=== PATIENT | female | born 1955 | race Caucasian/White ===

== ENCOUNTER → 2018-01-07 07:30 | Outpatient (CLI) | payer OTHER, BC, SELFPAY ==
[2018-01-07 07:59] LABS: Basophils # 0.1 K/mm3 (0-0.2); Basophils % 0.9 % (0.1-2.0); Eosinophils # 0.2 K/mm3 (0.0-0.4); Hematocrit 36.9 % (37.0-47.0); Hemoglobin 12.1 g/dL (12.2-16.2); Lymphocytes # 2.5 K/mm3 (0.7-4.5); Mean Corpuscular HGB Conc 32.8 g/dL (31.8-35.4); Mean Corpuscular Hemoglobin 28.7 pg (27.0-31.2); Mean Corpuscular Volume 87.6 fl (81-99); Mean Platelet Volume 8.2 fl (7.4-10.4); Monocytes # 0.4 K/mm3 (0.1-1.0); Monocytes % 6.7 % (1.7-9.3); Neutrophils # 2.5 K/mm3 (1.8-7.8); Neutrophils % 45.4 % (37.0-80.0); Platelet Count 299 K/mm3 (142-424); Red Blood Count 4.21 M/mm3 (4.20-5.40); Red Cell Distribution Width 13.4 % (11.5-17.5); White Blood Count 5.6 K/mm3 (4.8-10.8)
[2018-01-07 08:44] LABS: Alanine Aminotransferase 26 U/L (12-78); Albumin Level 3.3 gm/dL (3.4-5.0); Alkaline Phosphatase 120 U/L (46-116); Anion Gap 13.9 mEq/L (5-15); Aspartate Amino Transferase 19 U/L (15-37); Bilirubin,Total 0.4 mg/dL (0.2-1.0); Blood Urea Nitrogen 13 mg/dL (7-18); Calcium 8.2 mg/dL (8.5-10.1); Carbon Dioxide 28 mmol/L (21.0-32.0); Chloride 107 mmol/L (98-107); Creatinine,Serum 1.04 mg/dL (0.55-1.02); Estimated Glomerular Filt Rate 54 ml/min (>60); GFR (African American) 65 ML/MIN (>60); Globulin 3.2 gm/dl (1.3-3.2); Glucose 100 mg/dL (74-106); Potassium 3.9 mmoL/L (3.5-5.1); Sodium 145 mmol/L (136-145); Thyroid Stimulating Hormone 2.13 uIU/ml (0.358-3.740); Total Protein,Serum 6.5 gm/dL (6.4-8.2)
== END ==
PROVIDERS: Visit Provider Nurse Practitioner Family
DX: E03.9 Hypothyroidism, unspecified (principal); I10 Essential (primary) hypertension; J30.9 Allergic rhinitis, unspecified
CPT/HCPCS: 36415; 80053; 84443; 85025

== ENCOUNTER → 2018-05-30 07:33 | Outpatient (CLI) | payer BC, SELFPAY ==
[2018-05-30 10:19] LABS: Free T4 (Free Thyroxine) 1.27 ng/dl (0.76-1.46); Thyroid Stimulating Hormone 2.86 uIU/ml (0.358-3.740)
[2018-05-31 17:29] LABS: Triiodothyronine (T3) Free 2.9 pg/mL (2.0-4.4)
== END ==
PROVIDERS: PCP Internal Medicine Adolescent Medicine; Visit Provider Otolaryngology
DX: Z13.29 Encounter for screening for other suspected endocrine disorder (principal)
CPT/HCPCS: 36415; 84439; 84443; 84481

== ENCOUNTER → 2019-03-27 16:49 | Outpatient (CLI) | payer BC, SELFPAY ==
--- NOTE | 2019-03-27 16:51 | MM_ITS ---
MM Dig screening mamm BI w/CAD ORDERING PHYSICIAN : Aaliyah Nails APRN PATIENT AGE: 63 years GENDER: Female COMPARISON: Prior film screen December 2007 mammogram from [place] Bilateral mammogram August 2011 [facility] mobile unit, with subsequent spot views left breast September 2011 at [facility] INDICATION: Routine screening mammogram. No hormones. No new complaints. Maternal aunt with breast cancer TECHNIQUE: Standard CC and MLO images were obtained. R2 CAD reviewed. Additional actually cc views bilateral FINDINGS: Moderately dense moderate heterogeneous breast pattern bilaterally. No new dominant suspicious mass. No suspicious calcifications RIGHT BREAST:No new areas of significant concern . Follow-up in one year recommended There is decreased density in nodularity compared to 2012 LEFT BREAST:No new areas of significant concern. Follow-up in one year recommended The area of density at the central breast on cc view dissipates on today's axillary cc view and was seen on previous studies. It is stable. No new areas of concern significant concern. IMPRESSION: ......... \ moderately dense breast bilaterally, but no significant new areas concern Stable areas of mild asymmetric density central left breast appear unchanged & can be followed . Bilateral follow-up one year recommended BI-RADS Category: 2 Benign Finding(s) RECOMMENDED FOLLOW-UP: 1YR 1 YEAR FOLLOW-UP (A letter has been sent to the patient regarding results of the study.)
== END ==
PROVIDERS: PCP Nurse Practitioner Family; Visit Provider Nurse Practitioner Family
DX: Z12.31 Encounter for screening mammogram for malignant neoplasm of breast (principal)
CPT/HCPCS: 77067

== ENCOUNTER → 2019-05-29 07:48 | Outpatient (CLI) | payer BC, SELFPAY ==
[2019-05-29 10:18] LABS: Free Thyroxine Index 3.3 ug/dL (5.93-13.13); T4 (Thyroxine) 9.8 ug/dl (4.7-13.3); Triiodothryronine (T3) Uptake 34 % (31-39)
== END ==
PROVIDERS: Visit Provider Otolaryngology
DX: Z13.29 Encounter for screening for other suspected endocrine disorder (principal)
CPT/HCPCS: 36415; 84436; 84443; 84479

== ENCOUNTER → 2019-07-02 08:56 | Outpatient (CLI) | payer BC, SELFPAY ==
--- NOTE | 2019-07-02 08:59 | FL_ITS ---
PROCEDURE: FL UPPER GI W AIR CLINICAL INDICATION: DYSPHAGIA,GERD Trouble swallowing, feels like items get stuck in throat COMPARISON: No exams were available for comparison TECHNIQUE: FLUOROSCOPY TIME : 2 minutes and 45 seconds FINDINGS: Initially, the patient was unable to swallow the barium with obstruction to the flow of contrast in the upper thoracic region of the esophagus. Only small amount of contrast was noted distally. There was also some suggestion of some mucosal irregularity at this region. After a few minutes however, patient was able to swallow the contrast and there was no narrowing or obstruction. This may been due to severe spasm. On some images following the initial episode, there was questionable mucosal irregularity in the region of the obstruction. Upper endoscopy of the esophagus is suggested. There is a moderate-sized hiatal hernia. There is a gaping GE junction. The stomach and duodenum are unremarkable. No ulcer or mass is evident. IMPRESSION: 1. There was severe mid upper esophageal spasm which resolved during the exam. There was some minimal mucosal irregularity noted at this region. Upper endoscopy is suggested. 2. Moderate-sized hiatal hernia with moderate gastroesophageal reflux with gaping GE junction Dictated by: Moody Garcia MD 07/02/2019 12:25 Electronically signed by Moody Garcia MD in [place] 07/02/2019 12:25
--- NOTE | 2019-07-02 09:20 | XR_ITS ---
PROCEDURE: XR CHEST 2V CLINICAL HISTORY: DYSPHAGIA, FEELS LIKE SOMETHING IS STUCK COMPARISON: No exams were available for comparison FINDINGS: The patient was 4 and upper GI. Initially, there was near complete occlusion of the mid aspect of the esophagus at the level of the latesha. A PA and lateral chest x-ray is performed demonstrating this. On the lateral view however, the contrast did go into the distal esophagus and stomach. There is some minimal nodularity left hilar region possibly due to vascularity. Follow-up may confirm. Unremarkable cardiovascular structures. Lungs are otherwise clear. No acute bony anomalies. IMPRESSION: There was initial high-grade obstruction which alleviated during the chest x-ray. There is some mild nodularity left hilar region for which follow-up is suggested. The exam is otherwise unremarkable Dictated by: Moody Garcia MD 07/02/2019 09:59 Electronically signed by Moody Garcia MD in [place] 07/02/2019 09:59
== END ==
PROVIDERS: PCP Internal Medicine Adolescent Medicine; Visit Provider Nurse Practitioner Family
DX: R13.10 Dysphagia, unspecified (principal); K21.9 Gastro-esophageal reflux disease without esophagitis
CPT/HCPCS: 71046; 74247

== ENCOUNTER → 2019-07-07 12:47 | Outpatient (CLI) | payer BC, SELFPAY ==
[2019-07-07 13:31] LABS: Blood Urea Nitrogen 11 mg/dL (7-18); Creatinine,Serum 0.96 mg/dL (0.55-1.02); Estimated Glomerular Filt Rate 59 ml/min (>60); GFR (African American) 71 ML/MIN (>60)
== END ==
PROVIDERS: Visit Provider Internal Medicine Adolescent Medicine
DX: R93.89 Abnormal findings on diagnostic imaging of other specified body structures (principal)
CPT/HCPCS: 36415; 82565; 84520

== ENCOUNTER → 2020-03-29 09:48 | Outpatient (CLI) | payer BC, SELFPAY ==
--- NOTE | 2020-03-29 09:51 | MM_ITS ---
PROCEDURE: MM DIG SCREENING MAMM BI W/CAD DIGITAL BREAST TOMOSYNTHESIS INCLUDED Patient Age:64Y CLINICAL INDICATION: SCREENING 64-year-old. No hormones but no new complaints. 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 R2 CAD reviewed. Bilateral digital breast tomosynthesis included. Additional axillary CC views bilaterally included FINDINGS: Moderate breast density. Mild asymmetry of pattern is similar to previous studies with no new dominant or suspicious mass but no suspicious calcification.. CAD highlights no areas of concern Left breast: No new areas of significant concern. Stable asymmetric area of density at the deep breast on MLO been present since studies dating back to 2011 and 2007. Also note this feature dissipates on the axillary CC view as well as tomosynthesis. To the area of density at the central breast on CC view a with similar characteristics, instability thus both these areas can be followed. No new areas of concern otherwise at the left. Right breast: No new areas significant concern IMPRESSION: stable bilateral mammogram with no new areas of significant concern Moderate breast density. Bilateral follow-up 1 year recommended and would be encouraged. BI-RAD Category: 2 Benign Finding(s) FOLLOW-UP: 1YR 1 Year Follow-up (A letter has been sent to the patient regarding results of the study.) Dictated by: Xavier Anderson MD 03/29/2020 15:24 Electronically signed by Xavier Anderson MD in [place] 03/29/2020 15:24
--- NOTE | 2020-03-29 09:52 | XR_ITS ---
PROCEDURE: XR DEXA AXIAL SKELETON CLINICAL HISTORY: POST MENOPAUSAL COMPARISON: CR BONE3 BONE DENSITOMETRY(HIP:LT SPINE from 09/14/2015 FINDINGS: The right hip BMD is 0.725 with a T-score of -1.8. The left hip BMD is 0.600 with a T-score of -2.2. The lumbar spine BMD is 0.817 with a T-score of -2.1. IMPRESSION: This patient is considered osteopenic according to the World Health Organization criteria. Bone density is between 10 and 25 percent below young normal. Fracture risk is moderate. Treatment is advised. Based on these results a follow-up exam is recommended in 2 year. Dictated by: Moody Garcia MD 05/04/2020 05:04 Moody Garcia MD in [place] 05/04/2020 05:04
== END ==
PROVIDERS: PCP Nurse Practitioner Family; Visit Provider Nurse Practitioner Family
DX: Z12.31 Encounter for screening mammogram for malignant neoplasm of breast (principal); Z78.0 Asymptomatic menopausal state
CPT/HCPCS: 77063; 77067; 77080

== ENCOUNTER → 2020-05-27 10:49 | Outpatient (CLI) | payer BC, SELFPAY ==
[2020-05-27 13:46] LABS: Thyroid Stimulating Hormone 1.46 uIU/mL (0.465-4.68)
[2020-05-27 14:37] LABS: Free T4 (Free Thyroxine) 1.36 ng/dl (0.78-2.19)
== END ==
PROVIDERS: Visit Provider Otolaryngology
DX: D49.7 Neoplasm of unspecified behavior of endocrine glands and other parts of nervous system (principal); E03.9 Hypothyroidism, unspecified; Z98.890 Other specified postprocedural states
CPT/HCPCS: 36415; 84439; 84443

== ENCOUNTER 2020-10-09 18:37 | Emergency (ER) | payer BC, SELFPAY ==
[2020-10-09 18:44] VITALS: BMI 24.9
--- NOTE | 2020-10-09 18:45 | XR_ITS ---
PROCEDURE: XR ANKLE LT MIN 3V Referring Doctor: Joshua Najera Patient Age:65Y CLINICAL INDICATION: fall lower leg fracture COMPARISON: No exams were available for comparison TECHNIQUE: Left ankle: 3 View AP, Oblique, Lateral FINDINGS: Today's left ankle studies include a significant portion of the left lower leg Mildly comminuted fracture of the distal tibial shaft. This is mainly oblique fracture but with comminution along the fracture zone. Mild displacement with 5 mm (just over 1 cortical width) lateral displacement of the distal tibial fracture fragment at the fracture. And mild angulation with medial tilt with slight anterior tilt of the distal tibial fracture fragment noted. Comminuted fibular fracture of distal shaft of fibula. . Slight 3 mm (1 cortical with) lateral displacement, and 4 mm posterior displacement of the main distal fibular fracture fragment component.. There is comminution along the fracture zone also with a unusual longitudinal vertical fracture extending down through the entire distal fracture fragment to the lateral malleolus. Mild angulation at fracture with medial tilt of the distal fibular fracture fragment most notable; only scant anterior tilt . Associated soft tissue swelling about fracture at lower leg. The ankle mortise intact on these views IMPRESSION: Comminuted fracture distal tibia and fibular shaft. Mild angulation mild displacement at both fractures Additionally note that at distal fibula there is unusual longitudinal extension of fracture line passing through the entire distal fibular fragment to the lateral malleolus Dictated by: Xavier Anderson MD 10/10/2020 10:49 Xavier Anderson MD in [place] 10/10/2020 10:49
[2020-10-09 18:59] VITALS: BP 119/46; PULSE 66; RESP 16; TEMP 36.9; O2SAT 98; BMI 25.7
--- NOTE | 2020-10-09 18:59 | PC.NURSE ---
speaking with Dr. Mariscal
--- NOTE | 2020-10-09 19:05 | HMH.EDLOEX ---
ED Disposition Clinical Impression: Acute UTI Fracture, tibia and fibula Qualifiers: Encounter type: initial encounter Fracture type: closed Laterality: left Qualified Code(s): S82.202A - Unspecified fracture of shaft of left tibia, initial encounter for closed fracture Disposition: Home, Self-Care Condition on Discharge: Good Instructions: DI for Shinbone Fracture, DI for Urinary Tract Infection (UTI) Additional Instructions: Remain nonweightbearing on the left lower extremity. Be sure to drink plenty of water and use stool softeners if necessary while taking narcotic pain medication. This medication will make you sleepy and may make you feel unsteady on your feet so be careful when moving around. Prescriptions: Nitrofurantoin Monohyd/M-Cryst [Macrobid 100 mg Capsule] 100 mg PO BID #14 cap Transmission Status: Pending to [facility] Oxycodone HCl/Acetaminophen [Percocet 5/325mg tablet] 1 tab PO Q6H PRN #12 tab PRN Reason: pain Transmission Status: Received by [facility] Referrals: Honey Mariscal MD [Physician] - 10/11/20 Aaliyah Nails APRN [Primary Care Provider] - 3 days - Critical Care Critical Care Time: No Attestation: On 10/09/20, the high probability of a clinically significant, sudden or life threatening deterioration of the following system(s) required my full and direct attention, intervention and personal management. The time I documented below is in addition to time spent performing reported procedures but includes the following listed in this critical care notation. Medical Decision Making - Medical Records Medical records reviewed: Yes: I reviewed the patient's medical records. - Romeo Inquiry Pt receiving controlled substance: Yes Romeo was queried for this patient: No Risks and benefits of using a controlled substance: were discussed with pt by me Vital Signs: 10/09/20 18:59 Temperature 98.5 F Temperature Source Oral Pulse Rate [Right] 66 Respiratory Rate 16 Blood Pressure [Right Arm] 119/46 L Blood Pressure Mean [Right Arm] 70 Blood Pressure Source [Right Arm] Automatic Cuff Blood Pressure Position [Right Arm] Sitting 02 Sat by Pulse Oximetry 98 Oxygen Delivery Method Room Air - Lab Data Lab Results 10/09/20 19:20: Urine Color Yellow, Urine Appearance Clear, Urine pH 7.0, Ur Specific Upton <= 1.005, Urine Protein Negative, Urine Glucose (UA) Negative, Urine Ketones Negative, Urine Blood Trace-l, Urine Nitrate Negative, Urine Bilirubin Negative, Urine Urobilinogen 0.2, Ur Leukocyte Esterase 3+ A, Urine RBC 3-5, Urine WBC 20-50, Ur Renal Epithelial Cell 3-5 Orders (Tests/Meds): ED MEDICATIONS Discontinued Medications Generic Name Dose Route Start Last Admin Trade Name Freq PRN Reason Stop Dose Admin Morphine Sulfate 4 mg 10/09/20 18:50 10/09/20 18:51 Morphine 4mg/Ml Syringe IV 10/09/20 18:51 4 mg ONCE ONE Administration Ondansetron HCl 4 mg 10/09/20 18:50 10/09/20 18:51 Ondansetron 4mg/2ml Vial IV 10/09/20 18:51 4 mg ONCE ONE Administration ORDERS Category Date Time Status Ankle XR - Left minimum 3 Views [XR ankle LT min 3V] Exams 10/09/20 18:45 Taken Stat Fibula/tibia XR left 2 views [XR tibia fibula LT 2V] Exams 10/09/20 18:44 Ordered Stat Urine Culture Stat Micro 10/09/20 19:20 Received - Radiology Data #1 Image(s): Tib/Fib Image Reviewed: Yes I reviewed the patient's radiology image Distal tib-fib fracture, possible posterior malleolus fx? Medical Decision Narrative: Patient with left distal tib-fib. Traction was applied and splint was placed. Ankle was reduced. Neurovascularly intact distally. I discussed this case with Dr. Russ, on-call for Ortho, who states that patient should aggressively elevate the leg to prevent compartment syndrome. Compartments are currently soft and compressible. She advised follow-up in her clinic in 2 days on Sunday. Urinalysis positive f
[2020-10-09 19:25] LABS: Microscopic, Urine URINE MICROSCOPIC (MICROSCOPIC)
[2020-10-09 19:33] LABS: Appearance,Urine CLEAR (Clear); Bilirubin,Urine Negative (Negative); Blood, Urine TRACE-L (Negative); Color,Urine YELLOW (Yellow); Glucose,Urine (UA) Negative (Negative); Ketones,Urine Negative (Negative); Leukocyte Esterase,Urine 3+ (Negative); Nitrate,Urine Negative (Negative); Protein,Urine Negative (Negative); Specific Gravity, Urine <= 1.005 (1.005-1.030); Urobilinogen,Urine 0.2 EU/dl (0.2)
[2020-10-09 19:39] LABS: WBC,Urine 20-50 #/hpf (0-3)
[2020-10-09 19:45] VITALS: BP 127/75; PULSE 73; RESP 16; TEMP 36.8; O2SAT 98
== END 2020-10-09 20:01 | disposition home or self-care (01) ==
PROVIDERS: Emergency Provider Emergency Medicine; PCP Nurse Practitioner Family
DX: S82.202A Unspecified fracture of shaft of left tibia, initial encounter for closed fracture (principal); S82.402A Unspecified fracture of shaft of left fibula, initial encounter for closed fracture; W00.0XXA Fall on same level due to ice and snow, initial encounter; Y92.014 Private driveway to single-family (private) house as the place of occurrence of the external cause; I10 Essential (primary) hypertension; K21.9 Gastro-esophageal reflux disease without esophagitis; N39.0 Urinary tract infection, site not specified; Z90.79 Acquired absence of other genital organ(s)
CPT/HCPCS: 73610; 81001; 87086; 99282; J2405

== ENCOUNTER → 2020-10-11 11:56 | Outpatient (CLI) | payer BC, SELFPAY ==
[2020-10-11 12:40] LABS: Basophils # 0.1 K/mm3 (0-0.2); Basophils % 0.5 % (0.1-2.0); Eosinophils # 0.1 K/mm3 (0.0-0.4); Eosinophils % 0.8 % (0.1-12.0); Hematocrit 37.5 % (37.0-47.0); Hemoglobin 12.2 g/dL (12.2-16.2); Lymphocytes # 1.9 K/mm3 (0.7-4.5); Lymphocytes % 20.7 % (10-50); Mean Corpuscular HGB Conc 32.5 g/dL (31.8-35.4); Mean Corpuscular Hemoglobin 28.2 pg (27.0-31.2); Mean Corpuscular Volume 86.9 fl (81-99); Mean Platelet Volume 8.2 fl (7.4-10.4); Monocytes # 0.5 K/mm3 (0.1-1.0); Monocytes % 5.7 % (1.7-9.3); Neutrophils # 6.7 K/mm3 (1.8-7.8); Neutrophils % 72.3 % (37.0-80.0); Platelet Count 307 K/mm3 (142-424); Red Blood Count 4.32 M/mm3 (4.20-5.40); Red Cell Distribution Width 13.9 % (11.5-17.5); White Blood Count 9.2 K/mm3 (4.8-10.8)
[2020-10-11 12:49] LABS: Chloride 103 mmol/L (98-107); Potassium 4.8 mmoL/L (3.5-5.1); Sodium 139 mmol/L (136-145)
[2020-10-11 12:52] LABS: Alanine Aminotransferase 17 U/L (12-78); Albumin Level 4.1 g/dl (3.5-5.0); Albumin/Globulin Ratio 1.3 (1.1-1.8); Alkaline Phosphatase 122 U/L (38-126); Anion Gap 8.8 mEq/L (5-15); Aspartate Amino Transferase 20 U/L (14-36); Bilirubin,Total 0.5 mg/dl (0.2-1.3); Blood Urea Nitrogen 15 mg/dl (7-17); Carbon Dioxide 32 mmol/L (22.0-30.0); Estimated Glomerular Filt Rate 63 ml/min (>60); GFR (African American) 76 ML/MIN (>60); Globulin 3.1 g/dL (1.3-3.2); Total Protein,Serum 7.2 g/dl (6.3-8.2)
[2020-10-11 12:53] LABS: Calcium 9.2 mg/dl (8.4-10.2); Glucose 114 mg/dl (74-100)
[2020-10-11 15:50] LABS: Coronavirus 19 IgG Antibody Positive (Negative); Coronavirus 19 IgM Antibody Negative (Negative)
== END ==
PROVIDERS: Visit Provider Orthopaedic Surgery
DX: Z01.818 Encounter for other preprocedural examination (principal); Z20.822 Contact with and (suspected) exposure to COVID-19; Z86.16 Personal history of COVID-19; S82.209A Unspecified fracture of shaft of unspecified tibia, initial encounter for closed fracture; S82.409A Unspecified fracture of shaft of unspecified fibula, initial encounter for closed fracture
CPT/HCPCS: 80053; 85025; 86328

== ENCOUNTER 2020-10-12 13:49 | Observation (INO) | payer BC, SELFPAY ==
[2020-10-12] VITALS (21 sets, daily range): BP systolic 134–173; BP diastolic 53–93; PULSE 94–121; RESP 12–20; TEMP 36.2–37; O2SAT 90–100; BMI 24.9; BMI 26.3
--- NOTE | 2020-10-12 08:18 | HMH.ANESCL ---
[facility] Anesthesia Checklist - Patient Identification Patient Identification: Arm Band - Structural Data Admitted From: Home Planned Operative Procedure/s: Intramedullary Nail Left Tibia, Possible ORIF left Fibula Consent for Planned Operative Procedure(s) Verified: Yes Verified Documents: Surgical Consent, History and Physical - NPO Status Verified Time NPO: 00:00 - Additional verifications Anesthesia Reactions: Yes (ponv) Hx Blood Transfusions: No Blood Transfusion Reaction: No - Airway Assessment C-Spine Mobility Assessed: Yes (mp2) TMJ Mobility Assessed: Yes Dentition: Good Dentition - Neurological Assessment Level of Consciousness: Awake, Alert - Anesthesia Plan Anesthesia Risk discussed: Yes Anesthesia Plan: Verified ASA Class: II Anesthesia Type: General w/block [facility] History I have reviewed the patient's past medical history: Yes Medical History: Reports:: Cancer (ovarian), Gastroesophageal Reflux Disease(GERD), Hypertension Denies:: Diabetes Mellitus Type 1, Diabetes Mellitus Type 2, Internal Pacemaker, MRSA, Seizures *Have you ever received a pneumonia vaccine?: Yes *Have you received a flu vaccine this season?: Yes Other Medical History: Reports: Thyroid Disease. Denies: Blood Transfusion Reaction Anesthesia experience/problems:: ponv Other Surgeries: Yes: Hysterectomy-Total, Thyroidectomy, Other. No: Pacemaker Amputation: No Fractures: No - *Social History Last grade of school completed: Some college Smoking Status: Never smoker Alcohol Intake: never Substance Use Type: denies use *Occupational Status:: employed Housing: house Household Members: spouse *Travel in the last 8 weeks: None Family Hx:: Cancer, Diabetes, Heart Attack, Hypertension, Stroke
--- NOTE | 2020-10-12 13:14 | XR_ITS ---
PROCEDURE: XR TIBIA FIBULA LT 2V CLINICAL INDICATION: post op Status post ORIF COMPARISON: CR XR ANKLE LT MIN 3V from 10/09/2020 XA XR TIBIA FIBULA LT 2V from 10/12/2020 FINDINGS: There has been interval plate and screw fixation and tibial medullary whit placement across distal tibia and fibular fractures. There is improved, good alignment of the bony structures. No hardware complication. IMPRESSION: Status post ORIF with improved appearance. Dictated by: Davida Langston 10/12/2020 14:35 Davida Langston in [place] 10/12/2020 14:35
--- NOTE | 2020-10-12 13:55 | XR_ITS ---
PROCEDURE: XR TIBIA FIBULA LT 2V CLINICAL INDICATION: TIBIA NAILING 10/12/2020 COMPARISON: CR XR TIBIA FIBULA LT 2V from 10/12/2020 FINDINGS: 7 minutes of intraoperative fluoroscopy was provided ORIF of proximal tibia and fibular fractures reduction and hardware placement. IMPRESSION: Intraoperative fluoroscopy for tib fib ORIF Dictated by: Davida Langston MD 10/12/2020 15:25 Davida Langston MD in [place] 10/12/2020 15:25
--- NOTE | 2020-10-12 14:14 | HMH.PHAINT ---
MEDICATION RECONCILIATION COMPLETED ON PATIENT USING EXTERNAL FILL HISTORY FROM PHARMACY AND LIST FROM MD OFFICE. -RADHA HAYWOODD
--- NOTE | 2020-10-12 14:14 | HMH.ANESI ---
[facility] Anesthesia Record Part I Intake, IV Amount: 2,500 Estimated blood loss (mL): 100 Urine output (mL): 0 Blood Pressure: 152/78 SaO2: 94 Pulse Rate: 120 Respiratory Rate: 12 Temperature: 97.5 F Patient is:: Awake, Stable Stable to PACU at:: 14:10
--- NOTE | 2020-10-12 14:37 | HMH.ORTHHP ---
*Admission Date: 10/12/20 *Reason for consult:: s/p IMN L tibia + ORIF L fibula *History of present illness: 65yo F s/p slip and fall on ice 10/09/20; she was coming to the [facility] to be treated for a urinary tract infection and slipped on ice getting out of her car. She sustained closed fractures of the L distal tibial shaft, extra-articular, with a comminuted distal fibula fracture. She was started on Macrobid for the UTI. She was placed in a splint and remained NWB LLE. She was seen by myself in the office yesterday treatment options discussed. I recommended surgical intervention, particularly IMN L tibia +/- ORIF fibula. I felt tibia would be treated well with IMN; the fibula appeared suprasyndesmotic on AP view but on lateral the distal fragment was split and I felt fibular fixation might be necessary. I discussed the risks of surgery with the patient, including bleeding, infection, nonunion/malunion of the fracture, need for revision surgery if the fracture fails to heal, the risk of persistent knee pain in the future, and the risks of anesthesia. The patient vocalized understanding of the risks of surgery and provided informed consent for the procedure. [facility] History I have reviewed the patient's past medical history: Yes Medical History: Reports:: Cancer (ovarian), Gastroesophageal Reflux Disease(GERD), Hypertension Denies:: Diabetes Mellitus Type 1, Diabetes Mellitus Type 2, Internal Pacemaker, MRSA, Seizures *Have you ever received a pneumonia vaccine?: Yes *Have you received a flu vaccine this season?: Yes Other Medical History: Reports: Thyroid Disease. Denies: Blood Transfusion Reaction Anesthesia experience/problems:: ponv Other Surgeries: Yes: Hysterectomy-Total, Thyroidectomy, Other. No: Pacemaker Amputation: No Fractures: No - *Social History Last grade of school completed: Some college Smoking Status: Never smoker Alcohol Intake: never Substance Use Type: denies use *Occupational Status:: employed Housing: house Household Members: spouse *Travel in the last 8 weeks: None Family Hx:: Cancer, Diabetes, Heart Attack, Hypertension, Stroke Review of Systems - Review of Systems Review of systems:: pertinent systems reviewed and negative unless documented below Meds Home Medications Medication Instructions Recorded Confirmed Type lisinopril 5 mg tablet 5 mg PO DAILY 30 Days #30 tab 06/10/18 10/12/20 History omeprazole 20 mg capsule,delayed 20 mg PO DAILY 90 Days #90 cap 06/10/18 10/12/20 History release Cetirizine HCl [Zyrtec] 10 mg PO DAILY 07/21/19 10/12/20 History levothyroxine 75 mcg tablet 75 mcg PO DAILY #90 tab 06/07/20 10/12/20 Rx promethazine 12.5 mg tablet 12.5 mg PO Q4-6H PRN #14 tab 10/11/20 10/12/20 Rx Ergocalciferol (Vitamin D2) 50,000 unit PO WEEKLY 10/12/20 10/12/20 History [Vitamin D2] Folic Acid/Vit B Complex and C 400 mcg PO DAILY 10/12/20 10/12/20 History [Super B-Complex Folic-Vit C Tb] Nitrofurantoin Monohyd/M-Cryst 100 mg PO BID 10/12/20 10/12/20 History [Macrobid 100 mg Capsule] Oxycodone HCl/Acetaminophen 1 tab PO Q6HP PRN 10/12/20 10/12/20 History [Percocet 5/325mg tablet] Allergies Allergy/AdvReac Type Severity Reaction Status Date / Time Sulfa (Sulfonamide Allergy Intermediate I-HIVES/ITC Verified 10/11/20 11:09 Antibiotics) YUE/JOCELYNE TSANG Exam Vital signs and Labs for Last 24 Hours: Temp Pulse Resp BP Pulse Ox 97.5 F L 120 H 12 152/78 H 98 10/12/20 14:15 10/12/20 14:15 10/12/20 14:15 10/12/20 14:15 10/12/20 07:48 I & O for Last 24 hours: Intake & Output 10/10/20 10/11/20 10/12/20 10/13/20 11:59 11:59 11:59 11:59 Intake Total 2500 / 2500 Balance 2500 / 2500 Weight 145 lb Microbiology Reports for the Last 24 Hours: Microbiology 10/12/20 09:13 Nasopharyngeal Coronavirus COVID-19 PCR - Final - Constitutional no acute distress, average body habitus - *Routine HEENT Exam Head: Present: normocephalic
--- NOTE | 2020-10-12 14:49 | HMH.OPNOTE ---
Date of procedure: 10/12/20 Pre-op Diagnosis:: LEFT LOWER EXTREMITY: 1) tibial shaft fracture (distal 1/3, extra-articular) 2) distal fibula fracture Post-op Diagnosis:: LEFT LOWER EXTREMITY: 1) tibial shaft fracture (distal 1/3, extra-articular) 2) distal fibula fracture Procedure performed:: 1) intramedullary nail (IMN) L tibia 2) open reduction internal fixation (ORIF) L fibula Surgeon:: Honey Mariscal MD Doll Maker(s):: FLORENCE Newman CAFE [employer] RESTAURANT MANAGER:: Irvin Hidalgo Anesthesia: GETA Estimated blood loss (mL): 100 Clinical Note:: 65yo F s/p slip and fall on ice 10/09/20; she was coming to the [facility] to be treated for a urinary tract infection and slipped on ice getting out of her car. She sustained closed fractures of the L distal tibial shaft, extra-articular, with a comminuted distal fibula fracture. She was started on Macrobid for the UTI. She was placed in a splint and remained NWB LLE. She was seen by myself in the office yesterday treatment options discussed. I recommended surgical intervention, particularly IMN L tibia +/- ORIF fibula. I felt tibia would be treated well with IMN; the fibula appeared suprasyndesmotic on AP view but on lateral the distal fragment was split and I felt fibular fixation might be necessary. I discussed the risks of surgery with the patient, including bleeding, infection, nonunion/malunion of the fracture, need for revision surgery if the fracture fails to heal, the risk of persistent knee pain in the future, and the risks of anesthesia. The patient vocalized understanding of the risks of surgery and provided informed consent for the procedure. Operative findings:: IMPLANTS: Tibia: [employer] [place]-Nail tibial nailing system; infrapatellar nail = 10mm x 33cm distal interlocking screws (3): 5.0 x 40mm, 5.0 x 32.5mm, 5.0 x 30mm proximal interlocking screws (3): 5.0 x 45mm, 5.0 x 55mm, 5.0 x 45mm Fibula: interfragmentary fixation: 4 screw, 2.7mm non-locking [employer] 9 hole left-sided locking distal fibula plate 7 screws in plate: 4 distal (locking) + 3 proximal (non-locking) Operative note:: The patient was identified in preoperative holding and the left lower extremity marked by myself. Consent was verified with the patient and all questions answered. The decision was made to avoid neuraxial or regional anesthesia so post-operative neurovascular status could more reliably be monitored; general anesthesia was chosen. The patient was then taken to the OR where she was transferred to the operative table. 1g ancef were infused intravenously and general anesthesia induced. Non-sterile tourniquet was placed on the left upper thigh and a bump placed under the patient's left buttock. The contralateral lower extremity was well-padded and an SCD placed on this limb. Upper extremities were secured on arm boards and Kalie hugger placed. The left lower extremity was then prepped and draped in the usual sterile fashion. Timeout was performed, identifying the correct patient, correct procedure and correct site. The procedure was begun by placing the left lower extremity over a radiolucent triangle, with the point under the knee, with the lower leg extended over the triangle; infrapatellar nailing was to be performed. Fracture was confirmed in the distal 1/3 tibial shaft on fluoroscopy. Reduction was obtained under fluoroscopic guidance by pulling longitudinal traction on the ankle. The reduction was stabilized with the aid of a large periarticular reduction clamp through small stab incisions. After satisfactory reduction was achieved and maintained, a longitudinal incision was made over the anterior knee, centered over the patellar tendon. This measured approximately 4cm in length. Skin was incised with a 10 blade and subcutaneous tissue bluntly spread with metzenbaum scissors until the patellar tendon was encountered. The tendon was split longitudinally through its center with a fresh 10 blade and the tissue p
--- NOTE | 2020-10-12 15:05 | HMH.PHAVTE ---
[facility] Pharm[facility] VTE Monitoring - Patient Demographics Admission date: 10/12/20 Report Date: 10/12/20 Time: 15:05 Allergies/Adverse Reactions: Patient Allergies Sulfa (Sulfonamide Antibiotics) Allergy (Intermediate, Verified 10/11/20 11:09) I-HIVES/ITCHING/SWELLING Height: 1.63 m Weight: 65.771 kg Patient Problems: Current Active Problems Fracture, tibia and fibula (Acute) Acute UTI (Acute) - VTE Risk Clinical Trial Participant: No - Prophylaxis VTE Prophylaxis Ordered?: Yes Types of VTE Prophylaxis: IPCS Knee High (post op)
--- NOTE | 2020-10-12 17:50 | PC.NURSE ---
Addendum entered by Gwen Martinez RN 10/12/20 17:55: VASCULAR ASSESSMENT TO LEFT LOWER EXTREMITY HAS BEEN CHECKED Q1HR SINCE ARRIVAL TO FLOOR. Original Note: PT HAS DONE WELL POST OP. THUS FAR, NO PAIN HAS BEEN VOICED OTHER THAN WHEN PT IS TURNED. TOES ARE PINK AND WARM, CAP REFIL <3 SECS, PT ABLE TO MOVE TOES. VSS WILL CONT. TO MONITOR.
--- NOTE | 2020-10-12 20:22 | PC.NURSE ---
RA sats 89%. return pt back to n/c 2lpm
[2020-10-13] VITALS: BP 127/68; PULSE 102; RESP 16; TEMP 36.5; O2SAT 94
[2020-10-13 04:00] VITALS: BP 114/53; PULSE 65; RESP 17; TEMP 36.4; O2SAT 96
[2020-10-13 04:58] VITALS: BMI 26.6
--- NOTE | 2020-10-13 05:23 | PC.NURSE ---
A&OX4. PT HAS TOLERATED RA WELL THROUGHOUT SHIFT. RESPIRATIONS REGULAR AND UNLABORED. LUNG SOUNDS BILATERALLY CLEAR. NO COUGH NOTED. 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 +2 PULSES NOTED THROUGHOUT. ACTIVE BOWEL SOUNDS HEARD IN ALL 4 QUADRANTS. SOFT AND NONTENDER ABDOMEN. NO BM REPORTED. PURWICK IN PLACE W CLEAR YELLOW URINE NOTED IN CANISTER. PT HAS REPORTED PAIN TWICE THIS SHIFT AND ASKED FOR TYLENOL BOTH TIMES. TYLENOL WAS ADMINISTERED AND IT EASED THE PAIN PER PT. LLE ELEVATED THROUHGOUT SHIFT. ICE PACK IN PLACE. PT ENCOURAGED TO USE INCENTIVE SPIROMETER 10 TIMES EVERY HOUR WHILE AWAKE. SCUD NOTED TO RLE. PT RECEIVED ANCEF THIS SHIFT AND TOLERATED WELL. LR INFUSING AT 75ML/HR. PT HAS RESTED WELL TONIGHT. BED IN LOWEST POSITION. CALL LIGHT WITHIN REACH. VSS. WILL CONTINUE TO MONITOR.
[2020-10-13 06:45] LABS: Basophils % 0.3 % (0.1-2.0); Eosinophils % 0.1 % (0.1-12.0); Hematocrit 30.4 % (37.0-47.0); Lymphocytes # 3.1 K/mm3 (0.7-4.5); Lymphocytes % 25.4 % (10-50); Mean Corpuscular HGB Conc 32.8 g/dL (31.8-35.4); Mean Corpuscular Hemoglobin 28.3 pg (27.0-31.2); Mean Corpuscular Volume 86.4 fl (81-99); Neutrophils % 66.3 % (37.0-80.0); Platelet Count 329 K/mm3 (142-424); Red Blood Count 3.52 M/mm3 (4.20-5.40); Red Cell Distribution Width 14.1 % (11.5-17.5); White Blood Count 12.1 K/mm3 (4.8-10.8)
[2020-10-13 06:55] LABS: Chloride 105 mmol/L (98-107); Potassium 4.2 mmoL/L (3.5-5.1); Sodium 139 mmol/L (136-145)
[2020-10-13 06:58] LABS: Blood Urea Nitrogen 13 mg/dl (7-17); Creatinine Clearance Estimated 63 mL/min (50-200); Estimated Glomerular Filt Rate 56 ml/min (>60); GFR (African American) 67 ML/MIN (>60)
[2020-10-13 06:59] LABS: Anion Gap 7.2 mEq/L (5-15); Carbon Dioxide 31 mmol/L (22.0-30.0); Glucose 117 mg/dl (74-100)
[2020-10-13 07:31] LABS: Calcium 8.1 mg/dl (8.4-10.2)
[2020-10-13 07:32] VITALS: BP 164/76; PULSE 100; RESP 16; TEMP 36.9; O2SAT 98
--- NOTE | 2020-10-13 08:53 | HMH.CONS ---
*Admission Date: 10/12/20 *Reason for consult:: Blood pressure/UTI *History of present illness: 65yo F s/p slip and fall on ice 10/09/20; she was coming to the [facility] to be treated for a urinary tract infection and slipped on ice getting out of her car. She sustained closed fractures of the L distal tibial shaft, extra-articular, with a comminuted distal fibula fracture. She was started on Macrobid for the UTI. She was placed in a splint and remained NWB LLE. She was seen by myself in the office yesterday treatment options discussed. I recommended surgical intervention, particularly IMN L tibia +/- ORIF fibula. I felt tibia would be treated well with IMN; the fibula appeared suprasyndesmotic on AP view but on lateral the distal fragment was split and I felt fibular fixation might be necessary. I discussed the risks of surgery with the patient, including bleeding, infection, nonunion/malunion of the fracture, need for revision surgery if the fracture fails to heal, the risk of persistent knee pain in the future, and the risks of anesthesia. The patient vocalized understanding of the risks of surgery and provided informed consent for the procedure. Above note per orthopedics. Medicine consulted for blood pressure management and UTI treatment. Patient was on the way to the [facility] for UTI evaluation when she fell, was discharged on Macrobid and brought back yesterday for procedure, plan will be to discharge home today. She has absolutely no complaints today. [facility] History I have reviewed the patient's past medical history: Yes Medical History: Reports:: Cancer, Gastroesophageal Reflux Disease(GERD), Hypertension Denies:: Diabetes Mellitus Type 1, Diabetes Mellitus Type 2, Internal Pacemaker, MRSA, Seizures *Have you ever received a pneumonia vaccine?: Yes *Have you received a flu vaccine this season?: Yes Other Medical History: Reports: Thyroid Disease. Denies: Blood Transfusion Reaction Anesthesia experience/problems:: ponv Other Surgeries: Yes: Hysterectomy-Total, Thyroidectomy, Other. No: Pacemaker Amputation: No Fractures: No - *Social History Last grade of school completed: Some college Smoking Status: Never smoker Alcohol Intake: never Substance Use Type: denies use *Occupational Status:: employed Housing: house Household Members: spouse *Travel in the last 8 weeks: None Family Hx:: Diabetes, Heart Attack, Hyperlipidemia, Hypertension, Thyroid Disorder Review of Systems - Review of Systems Review of systems:: pertinent systems reviewed and negative unless documented below Meds Home Medications Medication Instructions Recorded Confirmed Type lisinopril 5 mg tablet 5 mg PO DAILY 30 Days #30 tab 06/10/18 10/12/20 History omeprazole 20 mg capsule,delayed 20 mg PO DAILY 90 Days #90 cap 06/10/18 10/12/20 History release Cetirizine HCl [Zyrtec] 10 mg PO DAILY 07/21/19 10/12/20 History levothyroxine 75 mcg tablet 75 mcg PO DAILY #90 tab 06/07/20 10/12/20 Rx promethazine 12.5 mg tablet 12.5 mg PO Q4-6H PRN #14 tab 10/11/20 10/12/20 Rx Ergocalciferol (Vitamin D2) 50,000 unit PO WEEKLY 10/12/20 10/12/20 History [Vitamin D2] Folic Acid/Vit B Complex and C 400 mcg PO DAILY 10/12/20 10/12/20 History [Super B-Complex Folic-Vit C Tb] Nitrofurantoin Monohyd/M-Cryst 100 mg PO BID 10/12/20 10/12/20 History [Macrobid 100 mg Capsule] Oxycodone HCl/Acetaminophen 1 tab PO Q6HP PRN 10/12/20 10/12/20 History [Percocet 5/325mg tablet] Allergies Allergy/AdvReac Type Severity Reaction Status Date / Time Sulfa (Sulfonamide Allergy Intermediate I-HIVES/ITC Verified 10/11/20 11:09 Antibiotics) YUE/JOCELYNE TSANG Exam Vital signs and Labs for Last 24 Hours: Temp Pulse Resp BP Pulse Ox 98.4 F 100 H 16 164/76 H 98 10/13/20 07:32 10/13/20 07:32 10/13/20 07:32 10/13/20 07:32 10/13/20 07:32 Laboratory Results - last 24 hr 10/13/20 06:03: WBC 12.1 H D, RBC 3.52 L, Hgb 10.0 L, Hct 30.4 L, MCV 86.4, MCH 28.3, M
--- NOTE | 2020-10-13 09:59 | HMH.PTEV ---
Physical Therapy Evaluation Rehab PT IP Evaluation Start: 10/12/20 14:28 Freq: ONCE Status: Active Protocol: Document 10/13/20 09:00 PHORSÁNCHEZ (Rec: 10/13/20 09:59 PHORNE [id number]) Subjective/History History History 65 yowf adm to [facility] for L tibia IMN after fall with fx. She reports she has W/C and BSC at home and lives with who can assist her. Subjective Subjective No new c/o this am. Rehab PT IP Eval Objective Appearance Patient Behavior Appropriate Patient Orientation Person,Place,Time Difficulty following instructions none Speech Pattern Clear Ambulation Patient Able to Ambulate Yes Ambulation Observation IP General Gait Pattern Observation Decrease Weight Bear (L) Ambulation Distance (feet) 20 Ambulation Assistive Device Rolling Walker Ambulation Ability Contact Guard/Hand Hold Balance Ability to Arise Able, uses arms to help Sitting Balance Steady, safe Standing Balance Steady, wide stance Dynamic Sitting Balance Ability Good Dynamic Standing Balance Ability Good Transfers Bed Transfer Ability Contact Guard/Hand Hold Chair Transfer Ability Contact Guard/Hand Hold Sit to Stand Bed Transfer Ability Contact Guard/Hand Hold Sit to Stand Chair Transfer Ability Contact Guard/Hand Hold ROM All Extremities PT ROM Status WFL Abnormal ROM Comment except L lower leg NT MMT All Extremities PT MMT WFL Abnormal MMT Grade except L lower leg NT Rehab PT IP prob,goals,plan Problems Date of Evaluation: 10/13/20 PT IP Problems Bed Mobility,Transfers,Gait Rehab Potential Rehab Potential Good Equipment Needs Assistive Devices Rolling / Wheeled Walker Plan PT Intervention Plan Bed Mobility,Transfers,Gait, Therapeutic Exercise PT Plan Frequency BID Duration LOS Discharge Goals Bed Transfer Ability Supervision/Stand by Sit to Stand Chair Transfer Ability Supervision/Stand by Ambulation Assistive Device Rolling Walker Ambulation Distance (feet) 30 Discharge Plan PT Discharge Plan Pt is appropriate to return home once medically stable. G -code Required No Eval Complexity Eval Charge Codes 74222 - Moderate Complexity PHYSICIAN CERTIFICATION: I certify the specified therapy services for Nimisha Martinez are required, authorized, and reviewed every 30 days.
--- NOTE | 2020-10-13 10:24 | HMH.ORTHPN ---
Subjective Date: 10/13/20 Time: 10:00 Principal diagnosis: s/p IMN L tibia + ORIF L fibula Interval history: The patient is doing very well this morning, reports minimal pain in the left leg. She has been out of bed with physical therapy and did well on a walker, able to walk to the bathroom and back. She is currently sitting in a bedside chair with the leg elevated. She is much less nauseous now than she was preoperatively and pain is well controlled on oral medication. No fevers or chills reported overnight, no numbness or tingling in the left lower extremity. Overall doing well without complaint. PN: Obj Ex Vital signs: Temp Pulse Resp BP Pulse Ox 98.4 F 100 H 16 164/76 H 98 10/13/20 07:32 10/13/20 07:32 10/13/20 07:32 10/13/20 07:32 10/13/20 07:32 - Constitutional no acute distress - Routine HEENT Exam Head: Present: normocephalic Eye: Present: EOMI ENT: Present: mucous membranes moist - Routine Neck Exam Present: trachea midline - Routine Respiratory Exam Absent: respiratory distress, wheezes - Routine Cardiovascular Exam Present: RRR - Routine Abdominal Exam Present: soft. Absent: tenderness - Routine Extremities Exam Comments: LLE splint intact, leg elevated on 2 pillows SILT distally LLE in all distributions wiggles toes; DF/PF hindered by splint LLT L foot pink, warm, brisk capillary refill L calf soft, compressible - Routine Skin Exam Present: warm - Routine Neurological Exam Present: alert, oriented X3, moving all extremities, normal tone, vision grossly intact, hearing grossly intact, normal speech. Absent: sensory deficit, motor deficit, altered mental status - Routine Psychiatric Exam Present: normal affect Progress Note: A&P (1) Acute UTI Status: Acute (2) Fracture, tibia and fibula Status: Acute (3) Hypertension, essential Status: Acute Assessment and Plan for All Diagnoses:: 65yo F POD 1 s/p IMN L tibia + ORIF L fibula -- do not remove splint LLE, keep leg elevated at all times -- continue NWB LLE -- ice L leg frequently -- encourage IS 10x/hr while awake -- pain control: po percocet as needed -- DVT prophy; aspirin + SCDs -- PT/OT has done eval and cleared for d/c home; rolling walker to be provided at discharge -- dispo planing: d/c home today with follow-up Sunday10/18/20 in clinic
--- NOTE | 2020-10-13 10:26 | PC.NURSE ---
Pt could benefit from a rolling walker r/t tib fib fx.
--- NOTE | 2020-10-13 10:28 | HMH.DCSUM ---
General - General Admission date:: 10/12/20 Discharge date: 10/13/20 HPI HPI: 65yo F s/p slip and fall on ice 10/09/20; she was coming to the [facility] to be treated for a urinary tract infection and slipped on ice getting out of her car. She sustained closed fractures of the L distal tibial shaft, extra-articular, with a comminuted distal fibula fracture. She was started on Macrobid for the UTI. She was placed in a splint and remained NWB LLE. She was seen by myself in the office yesterday treatment options discussed. I recommended surgical intervention, particularly IMN L tibia +/- ORIF fibula. I felt tibia would be treated well with IMN; the fibula appeared suprasyndesmotic on AP view but on lateral the distal fragment was split and I felt fibular fixation might be necessary. I discussed the risks of surgery with the patient, including bleeding, infection, nonunion/malunion of the fracture, need for revision surgery if the fracture fails to heal, the risk of persistent knee pain in the future, and the risks of anesthesia. The patient vocalized understanding of the risks of surgery and provided informed consent for the procedure. Hospital Course Hospital Course: Surgery was performed on 10/12/2020 without complication. Intramedullary nail was performed on the left tibia with open reduction internal fixation of the left distal fibula. Postoperatively the patient was admitted for pain control, physical therapy and neurovascular monitoring in the event of postoperative compartment syndrome. Overnight serial neurovascular checks were normal, pain was minimal and both her preoperative pain and nausea improved. On the morning of postoperative day 1 she performed very well with physical therapy and was able to use a walker to travel to the bathroom and back and positioned herself in a bedside chair. She reports minimal pain in the left leg, no numbness or tingling. Vitals were stable overnight. She was evaluated by Dr. Garcia who believe she is medically appropriate for discharge and will see her in the clinic next week. She will be discharged on a 10-day course of Macrobid for her acute UTI per his recommendations. She will also be discharged with oral pain medication. I will see her in the office on 10/18/2020 as well. Objective Vital signs: Temp Pulse Resp BP Pulse Ox 98.4 F 100 H 16 164/76 H 98 10/13/20 07:32 10/13/20 07:32 10/13/20 07:32 10/13/20 07:32 10/13/20 07:32 no acute distress, average body habitus - *Routine HEENT Exam Head: Present: normocephalic Eye: Present: EOMI ENT: Present: mucous membranes moist - *Routine Neck Exam Present: trachea midline - *Routine Respiratory Exam Absent: respiratory distress, wheezes - *Routine Cardiovascular Exam Present: RRR - *Routine Abdominal Exam Present: soft. Absent: tenderness - *Routine Extremities Exam Comments: LLE splint intact, leg elevated on 2 pillows SILT distally LLE in all distributions wiggles toes; DF/PF hindered by splint LLT L foot pink, warm, brisk capillary refill L calf soft, compressible - *Routine Skin Exam Present: warm - *Routine Neurological Exam Present: alert, oriented X3, moving all extremities, normal tone, vision grossly intact, hearing grossly intact, normal speech. Absent: sensory deficit, motor deficit, altered mental status - Routine Psychiatric Exam Present: normal affect Results Labs on day of discharge: Labs from last 24 hours 10/13/20 10/13/20 06:03 06:03 WBC 12.1 H D RBC 3.52 L Hgb 10.0 L Hct 30.4 L MCV 86.4 MCH 28.3 MCHC 32.8 RDW 14.1 Plt Count 329 MPV 8.0 Neut % (Auto) 66.3 Lymph % (Auto) 25.4 Parke % (Auto) 8.0 Eos % (Auto) 0.1 Baso % (Auto) 0.3 Neut # (Auto) 8.0 H Lymph # (Auto) 3.1 Parke # (Auto) 1.0 Eos # (Auto) 0.0 Baso # (Auto) 0.0 Sodium 139 Potassium 4.2 Chloride 105 Carbon Dioxide 31 H Anion Gap 7.2 BUN 13
--- NOTE | 2020-10-13 10:41 | SW/DCPLANNER ---
ORDERED A ROLLING WALKER FOR THIS PATIENT TODAY FOR A DISCHARGE LATER IN THE DAY... ISN'T GOING TO NEED ANY HOME HEALTH SERVICES AT THIS TIME PER DR GARDNER... IS AT BEDSIDE...
[2020-10-13 13:08] VITALS: BP 158/67; PULSE 98; TEMP 36.6
--- NOTE | 2020-10-13 13:08 | HMH.ANESII ---
[facility] Anesthesia Record Part II Discharge Time: 14:50 Destination: Medical Surgical Department PACU nurse assessment reviewed?: Yes Patient Condition:: Good Anesthesia Complications:: None Swallowing reflex intact?: Yes Cyanosis?: No Blood Pressure: 158/67 Pulse Rate: 98 Temperature: 97.8 F Mental Status: Alert & Oriented Pain level:: 0 Nausea and/or vomitting:: None Intake, IV Amount: 0
== END 2020-10-13 12:47 | disposition home or self-care (01) ==
LOC: 2ND 14:01
PROVIDERS: Admitting Provider Orthopaedic Surgery; PCP Nurse Practitioner Family; Visit Provider Orthopaedic Surgery
PROC: (CPT 27792; principal; 2020-10-12 09:00)
DX: S82.452A Displaced comminuted fracture of shaft of left fibula, initial encounter for closed fracture (principal); S82.252A Displaced comminuted fracture of shaft of left tibia, initial encounter for closed fracture; W00.0XXA Fall on same level due to ice and snow, initial encounter; I10 Essential (primary) hypertension; N39.0 Urinary tract infection, site not specified
CPT/HCPCS: 27792; 27759; 36415; 73590; 80048; 85025; 94760; 94761; 96374; 97162; 97165; 97535; C1713; C1762; C1776; G0378; J2405; U0003

== ENCOUNTER → 2020-10-18 13:12 | Outpatient (CLI) | payer BC, SELFPAY ==
--- NOTE | 2020-10-18 13:20 | XR_ITS ---
PROCEDURE: XR ANKLE LT MIN 3V CLINICAL INDICATION: s/p IMN L tibia ORIF L fibula Follow-up surgery COMPARISON: CR XR ANKLE LT MIN 3V from 10/09/2020 FINDINGS: Status post ORIF comminuted distal tib fib fracture. Intramedullary whti with stabilizing screws noted at the distal tibia with good alignment. No significant displacement. Lateral fibular bone plate is present with good alignment. There is a posterior splint in place. IMPRESSION: Good alignment status post ORIF distal tib fib fracture Dictated by: Moody Garcia MD 10/18/2020 16:45 Moody Garcia MD in [place] 10/18/2020 16:45
== END ==
PROVIDERS: PCP Internal Medicine Adolescent Medicine; Visit Provider Orthopaedic Surgery
DX: S82.202A Unspecified fracture of shaft of left tibia, initial encounter for closed fracture (principal); S82.402A Unspecified fracture of shaft of left fibula, initial encounter for closed fracture
CPT/HCPCS: 73610

== ENCOUNTER → 2020-10-25 12:27 | Outpatient (CLI) | payer BC, SELFPAY ==
--- NOTE | 2020-10-25 12:31 | XR_ITS ---
PROCEDURE: XR WRIST LT MIN 3V CLINICAL INDICATION: LT wrist pain Left lateral wrist pain COMPARISON: No exams were available for comparison FINDINGS: Osteoarthritic changes are present at the scapho trapezium and 1st metacarpal-carpal joint. There is an oblique mildly displaced fracture involving the distal aspect of 5th metacarpal. The distal fracture fragment is displaced laterally by approximately 1-2 mm. Other findings:None. 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
== END ==
PROVIDERS: PCP Nurse Practitioner Family; Visit Provider Orthopaedic Surgery
DX: M25.532 Pain in left wrist (principal)
CPT/HCPCS: 73110

== ENCOUNTER → 2020-10-25 14:16 | Outpatient (CLI) | payer BC, SELFPAY ==
[2020-10-25 19:38] LABS: Coronavirus 19 IgG Antibody Positive (Negative); Coronavirus 19 IgM Antibody Negative (Negative)
== END ==
PROVIDERS: Visit Provider Orthopaedic Surgery
DX: Z01.818 Encounter for other preprocedural examination (principal); Z20.822 Contact with and (suspected) exposure to COVID-19; S62.308A Unspecified fracture of other metacarpal bone, initial encounter for closed fracture
CPT/HCPCS: 36415; 86328

== ENCOUNTER 2020-10-26 08:44 | Day surgery (SDC) | payer BC, SELFPAY ==
[2020-10-26] VITALS (14 sets, daily range): BP systolic 101–148; BP diastolic 52–71; PULSE 95–114; RESP 16–18; TEMP 36.1–36.2; O2SAT 92–98; BMI 24.9
--- NOTE | 2020-10-26 09:57 | P.PN_ITS ---
[facility] Anesthesia Checklist - Patient Identification Patient Identification: Arm Band - Structural Data Admitted From: Home Planned Operative Procedure/s: HOME Consent for Planned Operative Procedure(s) Verified: Yes Verified Documents: Surgical Consent - NPO Status Verified Time NPO: 00:00 - Chart Verification Results Verified: CBC, BMP - Additional verifications Anesthesia Reactions: Yes (N/V) Hx Blood Transfusions: No Blood Transfusion Reaction: No - Cardiovascular Assessment Heart Sounds: S1 & S2 Pulse Strength: Baseline Pulse Rhythm: Regular Peripheral Edema: No - Airway Assessment C-Spine Mobility Assessed: Yes TMJ Mobility Assessed: Yes Dentition: Good Dentition - Neurological Assessment Level of Consciousness: Awake, Alert, Appropriate - Anesthesia Plan Anesthesia Risk discussed: Yes ASA Class: II Anesthesia Type: General w/block [facility] History I have reviewed the patient's past medical history: Yes Medical History: Reports:: Cancer (ovarian), Gastroesophageal Reflux Disease(GERD), Hypertension Denies:: Diabetes Mellitus Type 1, Diabetes Mellitus Type 2, Internal Pacemaker, MRSA, Seizures *Have you ever received a pneumonia vaccine?: Yes (2019) *Have you received a flu vaccine this season?: Yes Other Medical History: Reports: Thyroid Disease. Denies: Blood Transfusion Reaction Anesthesia experience/problems:: NONE Laterality Cases: Left: Other Other Surgeries: Yes: Colonoscopy, Hysterectomy-Total, Thyroidectomy, Other. No: Pacemaker Amputation: No Fractures: Yes - *Social History Last grade of school completed: Advanced degree Smoking Status: Never smoker Alcohol Intake: never Substance Use Type: denies use *Occupational Status:: employed Housing: house Household Members: spouse *Travel in the last 8 weeks: None Family Hx:: Diabetes, Heart Attack, Hyperlipidemia, Hypertension, Thyroid Disorder
--- NOTE | 2020-10-26 11:03 | XR_ITS ---
PROCEDURE: XR HAND LT MIN 3V CLINICAL INDICATION: LEFT ORIF OF 5TH METACARPAL IN OR COMPARISON: No exams were available for comparison FINDINGS: Fluoroscopy time: 1 minute and 10 seconds. C-arm is utilized for placement of 2 screws and a lateral bone plate at the 5th metacarpal with good alignment of the fracture fragments. IMPRESSION: Good alignment status post ORIF 5th metacarpal fracture Dictated by: Moody Garcia MD 10/26/2020 18:04 Moody Garcia MD in [place] 10/26/2020 18:04
--- NOTE | 2020-10-26 11:39 | P.PN_ITS ---
[facility] Anesthesia Record Part I Intake, IV Amount: 1,600 Estimated blood loss (mL): 5 Urine output (mL): 0 Blood Products used (#): none Blood Pressure: 128/71 SaO2: 93 Pulse Rate: 106 Respiratory Rate: 17 Temperature: 97.0 F Patient is:: Awake Stable to PACU at:: 11:28
--- NOTE | 2020-10-26 12:20 | PC.NURSE ---
Incentive spirometer used per pt, repeat demonstrated by
--- NOTE | 2020-10-26 12:21 | PC.NURSE ---
Berenice,PAPER STEAMER at bedside, instructed pt and to focus on deep breathing and that as the nerve block begins to wear off the oxygen level will improve
--- NOTE | 2020-10-26 12:24 | PC.NURSE ---
Pt oxygen saturation is b/n 86-93% on room air, pt provided with and instructed on the use of an incentive spirometer. IS used and saturation increased to 93% on room air. GABINO Ng aware of oxygenation issues
--- NOTE | 2020-10-26 12:30 | PC.NURSE ---
Lungs clear and equal B/L. Pt using IS
--- NOTE | 2020-10-26 12:38 | PC.NURSE ---
Daniel,PET CARE ATTENDANT at bedside, states to encourage IS use and that he was not concerned about pt oxygenation levels, that as the block wears off those will improve.
--- NOTE | 2020-10-26 12:49 | PC.NURSE ---
GABINO Ng and GABINO Sanchez at bedside, states pt is fine to go home
--- NOTE | 2020-10-26 12:53 | HMH.OPNOTE ---
Date of procedure: 10/26/20 Pre-op Diagnosis:: L hand 5th (small) metacarpal shaft fracture Post-op Diagnosis:: L hand 5th (small) metacarpal shaft fracture Procedure performed:: open reduction internal fixation (ORIF) L hand 5th (small) metacarpal shaft fracture Surgeon:: Honey Mariscal MD Varnish Supervisor(s):: FLORENCE Goldberg [employer] PSYCHOLOGIST:: Other Anesthesia: regional (supraclavicular nerve block), LMA Estimated blood loss (mL): 5 Clinical Note:: 65yo F s/p slip and fall on ice 10/09/20; she was coming to the [facility] to be treated for a urinary tract infection and slipped on ice getting out of her car. She sustained closed fractures of the L distal tibial shaft, extra-articular, with a comminuted distal fibula fracture. She underwent IMN L tibia and ORIF L distal fibula on 10/12/2020. Post-operatively she has been doing well and presented to her 2d office follow-up yesterday with complaints of L hand pain. This is the first time she's reported pain in the L hand and she isn't quite sure when it began. She hit her hand on the frame of her walker but isn't sure if this or her fall on 10/09/20 is the cause of her injury. X-ray of the L hand yesterday revealed a moderately shortened, oblique fracture of the 5th metacarpal shaft. There was no clinical deformity of the patient's hand, though a slight extensor lag noted. I discussed treatment options with the patient and her , both nonoperative and operative. An argument could be made for both nonoperative and surgical treatment, but nonoperative treatment would require casting and very close monitoring for worsening as this an inherently very unstable fracture. I believe the patient will require less immobilization and will be able to start faster ROM should ORIF be performed. I discussed the risk of surgery with the patient, including but not limited to bleeding, infection, nonunion/malunion, postoperative stiffness/pain, need for further surgical procedures in the future, need for postoperative Occupational Therapy, postoperative numbness in the finger, and risks of anesthesia. The patient vocalized understanding and informed consent was obtained. Covid-19 antibody remains positive for IgG but not IgM; the patient is vaccinated. Operative findings:: oblique fracture shaft L 5th metacarpal Operative note:: The patient was identified in preoperative holding and the left hand signed by myself. Consent was reviewed with the patient and all questions answered. After discussion with anesthesia and the patient, the decision was made to do the procedure with general anesthesia with a supraclavicular nerve block to decrease post-operative pain. The block was performed by the [employer] PSYCHOLOGIST in pre-operative holding. The patient was then taken to the OR and placed supine on the operative table with a hand table attached. 900mg clindamycin was infused and general anesthesia induced. Splint was removed from the left hand, non-sterile tourniquet was placed on the left upper arm and the left hand was prepped and draped in the usual sterile fashion. Timeout was performed, identifying the correct patient, correct procedure, and correct site. The procedure was begun by using C-arm to localize the fracture site in L 5th (small) finger metacarpal shaft. The desired surgical incision was drawn over the dorsum of the L hand, centered between the 4th and 5th metacarpal shafts but not directly over either bone. The incision was longitudinal and approximately 4cm long. The left arm was exsanguinated with an Esmarch and the tourniquet inflated to 250 mmHg. Incision was made with a 15 blade, incising skin only. Blunt dissection was performed carefully with tenotomy scissors, taking care to retract the extensor tendons radially along with superficial neurovascular structures. The fracture site was identified at the midshaft portion of the 5ht metacarpal, with moderate to significant shortening of the bone. There was some callus formation indicat
--- NOTE | 2020-10-26 13:00 | PC.NURSE ---
Pt and informed that if pt becomes cynanotic, unresponsive or has any trouble breathing to bring pt back to ER. Pt and state understanding
--- NOTE | 2020-10-26 14:04 | P.PN_ITS ---
[facility] Anesthesia Record Part II Discharge Time: 11:58 Destination: Surgical Day Care (OP Surgery) PACU nurse assessment reviewed?: Yes Patient Condition:: Good Anesthesia Complications:: None Swallowing reflex intact?: Yes Cyanosis?: No Blood Pressure: 127/64 Pulse Rate: 101 Temperature: 97 F Mental Status: Alert & Oriented Pain level:: 0 Nausea and/or vomitting:: None Intake, IV Amount: 0
== END 2020-10-26 13:02 | disposition home or self-care (01) ==
LOC: OR 08:45
PROVIDERS: PCP Nurse Practitioner Family; Visit Provider Orthopaedic Surgery
PROC: (CPT 26615; principal; 2020-10-26 11:00)
DX: S62.357A Nondisplaced fracture of shaft of fifth metacarpal bone, left hand, initial encounter for closed fracture (principal); S82.452D Displaced comminuted fracture of shaft of left fibula, subsequent encounter for closed fracture with routine healing; S82.252D Displaced comminuted fracture of shaft of left tibia, subsequent encounter for closed fracture with routine healing; W00.0XXA Fall on same level due to ice and snow, initial encounter; I10 Essential (primary) hypertension; Z88.2 Allergy status to sulfonamides; Z79.899 Other long term (current) drug therapy; Z91.81 History of falling
CPT/HCPCS: 26615; 73130; 76000; 96374; C1713; C1776; J2405

== ENCOUNTER → 2020-11-01 13:00 | Outpatient (CLI) | payer BC, SELFPAY ==
--- NOTE | 2020-11-01 13:05 | XR_ITS ---
PROCEDURE: XR HAND LT MIN 3V CLINICAL INDICATION: s/p ORIF 5th MC Follow-up surgery COMPARISON: DX XR WRIST LT MIN 3V from 10/25/2020 XA XR HAND LT MIN 3V from 10/26/2020 FINDINGS: There is a bone plate present along the 5th metacarpal with good alignment of the fracture fragments. No significant displacement. The joint spaces are well-preserved. No significant degenerative/arthritic changes. No erosive changes evident. Other findings:None. IMPRESSION: S/p ORIF 5th metacarpal fracture with good alignment Dictated by: Moody Garcia MD 11/01/2020 14:31 Moody Garcia MD in [place] 11/01/2020 14:31
--- NOTE | 2020-11-01 14:41 | XR_ITS ---
PROCEDURE: XR CHEST 2V CLINICAL HISTORY: shortness of breath COMPARISON: DX XR CHEST 2V from 07/02/2019 FINDINGS: The cardiomediastinal silhouette and pulmonary vascularity are within normal limits. Mild atelectatic changes are present in the left lower lobe. There is evidence of old granulomatous disease. No acute bony abnormalities. IMPRESSION: Left lower lobe atelectasis otherwise negative Dictated by: Moody Garcia MD 11/01/2020 15:22 Moody Garcia MD in [place] 11/01/2020 15:22
[2020-11-01 14:48] LABS: Basophils # 0.1 K/mm3 (0-0.2); Eosinophils % 0.5 % (0.1-12.0); Hematocrit 35.3 % (37.0-47.0); Hemoglobin 10.9 g/dL (12.2-16.2); Lymphocytes # 2.1 K/mm3 (0.7-4.5); Lymphocytes % 23.6 % (10-50); Mean Corpuscular HGB Conc 30.8 g/dL (31.8-35.4); Mean Corpuscular Hemoglobin 26.7 pg (27.0-31.2); Mean Corpuscular Volume 86.8 fl (81-99); Mean Platelet Volume 8.3 fl (7.4-10.4); Monocytes # 0.4 K/mm3 (0.1-1.0); Neutrophils # 6.4 K/mm3 (1.8-7.8); Neutrophils % 70.9 % (37.0-80.0); Platelet Count 658 K/mm3 (142-424); Red Blood Count 4.07 M/mm3 (4.20-5.40); Red Cell Distribution Width 14.2 % (11.5-17.5)
[2020-11-01 15:00] LABS: Chloride 106 mmol/L (98-107); Potassium 4.6 mmoL/L (3.5-5.1); Sodium 142 mmol/L (136-145)
[2020-11-01 15:03] LABS: Anion Gap 12.6 mEq/L (5-15); Blood Urea Nitrogen 16 mg/dl (7-17); Calcium 9.9 mg/dl (8.4-10.2); Carbon Dioxide 28 mmol/L (22.0-30.0); Estimated Glomerular Filt Rate 45 ml/min (>60); GFR (African American) 55 ML/MIN (>60); Glucose 145 mg/dl (74-100)
[2020-11-01 15:08] LABS: D-Dimer 1.89 ug/mL (0.0-0.5)
== END ==
PROVIDERS: PCP Internal Medicine Adolescent Medicine; Visit Provider Orthopaedic Surgery
DX: S62.92XA Unspecified fracture of left hand, initial encounter for closed fracture (principal); R06.02 Shortness of breath
CPT/HCPCS: 36415; 71046; 73130; 80048; 85025; 85378

== ENCOUNTER → 2020-11-01 14:30 | Outpatient (CLI) | payer BC, SELFPAY | PROVIDERS: Visit Provider Orthopaedic Surgery | DX: R06.02 Shortness of breath (principal); R53.83 Other fatigue | CPT/HCPCS: 36415; 80048; 85025; 85378 ==

== ENCOUNTER 2020-11-01 15:38 | Emergency (ER) | payer BC, SELFPAY ==
[2020-11-01 15:39] VITALS: BP 147/116; PULSE 127; RESP 22; TEMP 36.8; O2SAT 94; BMI 24.9
--- NOTE | 2020-11-01 16:02 | CA_ITS ---
APPROVED REPORT Bilateral Lower Extremity Venous Study for DVT. Enterprise Integration Architect: HOLLIS Indications Lower Extremity Pain: Shortness of breath swelling Risk Factors Post OP Lt tibial fracture with surgical repair, 2weeks post-op Findings Color flow duplex of the right lower extremity demonstrates no evidence of superficial venous thrombophlebitis. Color Flow Duplex demonstrates no evidence of Superficial Thrombophlebitis of the bilateral lower extremities. Color flow duplex of the left lower extremity demonstrates no evidence of superficial venous thrombophlebitis. Negative for DVT. Conclusion Color Flow Duplex demonstrates no evidence of Superficial Thrombophlebitis of the bilateral lower extremities. Negative for DVT. Electronically signed by : Moody Garcia MD 11/02/2020 18:00:29
--- NOTE | 2020-11-01 16:02 | CT_ITS ---
PROCEDURE: CT ANGIO CHEST CLINCIAL INDICATION: swelling Shortness of air CT COMPARISON: No exams were available for comparison TECHNIQUE: IV Contrast: 70ML Isovue 370 Axial images obtained with sagittal and coronal reformats. All CT scans at the facility use one or more dose reduction, viz: automated exposure control, ma/kV adjustment per patient size (including targeted exams where dose is matched to indication, i.e. head), or iterative reconstruction technique. FINDINGS: HEART AND MEDIASTINAL STRUCTURES: No evidence of pulmonary embolus, aortic aneurysm, or aortic dissection. There is a medium-sized hiatal hernia. Hyperdensity is present in the distal aspect of the esophagus may be due to an ingested foreign body or medication. LUNGS AND PLEURAL SPACES: 4 mm nodule right upper lobe. Possibly due to a granuloma. Bibasilar atelectatic change. BONY STRUCTURES: No acute bony abnormalities apparent. UPPER ABDOMEN: 19 mm hypodense lesion of the right hepatic lobe anteriorly possibly due to a cyst. ADDITIONAL FINDINGS: Nodular area in the right retroareolar region measuring 11 mm. This may be due to fibroglandular tissue. Cannot exclude nodule. Mammogram and ultrasound may provide further evaluation. IMPRESSION: 1. No evidence of pulmonary embolus, aortic aneurysm, or aortic dissection. 2. Hiatal hernia. 3. Bibasilar atelectasis. 4. 4 mm right upper lobe nodule possibly due to a granuloma. Consider six-month follow-up for confirmation. 5. Possible right breast nodule versus fibroglandular tissue. Mammogram and ultrasound may provide further evaluation. Dictated by: Moody Garcia MD 11/02/2020 06:18 Moody Garcia MD in [place] 11/02/2020 06:18
--- NOTE | 2020-11-01 16:03 | CA_ITS ---
APPROVED REPORT Bilateral Upper Extremity Venous Study for DVT. Global Climate Change Analyst: Harmony Luna RT(R) Indications Upper Extremity Pain: Bilateral Shortness of breath Patient had a fall on ice 10/09/20. She fractured her left hand and is in a cast/splint up to mid forearm. Scanning was limited on left forearm. Patient had surgery for this left hand fracture 2 weeks ago. Presents today with shortness of air and concern for DVT. Risk Factors Trauma Post OP Vein Imaging IJV (R): Normal phasic flow is seen. Normal flow, augmentation and compression is seen. No evidence of Deep Vein Thrombosis. No abnormalities are demonstrated. SCV (R): Normal phasic flow is seen. Normal flow, augmentation and compression is seen. No evidence of Deep Vein Thrombosis. No abnormalities are demonstrated. Axillary (R): Normal phasic flow is seen. Normal flow, augmentation and compression is seen. No evidence of Deep Vein Thrombosis. No abnormalities are demonstrated. Brachial (R): Normal phasic flow is seen. Normal flow, augmentation and compression is seen. No evidence of Deep Vein Thrombosis. No abnormalities are demonstrated. Cephalic (R): Compressible Radial (R): Compressible Ulnar (R): Compressible IJV (L): Normal phasic flow is seen. Normal flow, augmentation and compression is seen. No evidence of Deep Vein Thrombosis. No abnormalities are demonstrated. SCV (L): Normal phasic flow is seen. Normal flow, augmentation and compression is seen. No evidence of Deep Vein Thrombosis. No abnormalities are demonstrated. Axillary (L): Normal phasic flow is seen. Normal flow, augmentation and compression is seen. No evidence of Deep Vein Thrombosis. No abnormalities are demonstrated. Brachial (L): Normal phasic flow is seen. Normal flow, augmentation and compression is seen. No evidence of Deep Vein Thrombosis. No abnormalities are demonstrated. Cephalic (L): Compressible Findings Duplex evaluation of the right upper extremity demonstrates no evidence of DVT. Duplex evaluation of the left upper extremity demonstrates no evidence of DVT. Conclusion Duplex evaluation of the right upper extremity demonstrates no evidence of DVT. Duplex evaluation of the left upper extremity demonstrates no evidence of DVT. Critical Notification Critical Value: Yes Physician Notified Date: 11/01/2020 Time: 17:04 Physician Name: lucia Report Read Back Electronically signed by : Moody Garcia MD 11/02/2020 18:01:37
--- NOTE | 2020-11-01 16:11 | HMH.EDGENADL ---
ED Disposition Clinical Impression: Atelectasis of both lungs, Physical deconditioning Disposition: Home, Self-Care Condition on Discharge: Good Instructions: DI for Shortness of Breath Referrals: PCP,No [Primary Care Provider] - - Critical Care Critical Care Time: No Attestation: On , the high probability of a clinically significant, sudden or life threatening deterioration of the following system(s) required my full and direct attention, intervention and personal management. The time I documented below is in addition to time spent performing reported procedures but includes the following listed in this critical care notation. Medical Decision Making - Medical Records Medical records reviewed: Yes: I reviewed the patient's medical records. - Romeo Inquiry Pt receiving controlled substance: No Vital Signs: 11/01/20 15:39 Temperature 98.2 F Temperature Source Oral Pulse Rate [Radial] 127 H Respiratory Rate 22 Blood Pressure [Right Arm] 147/116 H Blood Pressure Mean [Right Arm] 126 Blood Pressure Position [Right Arm] Sitting 02 Sat by Pulse Oximetry 94 L Oxygen Delivery Method Room Air - Lab Data Lab Results 11/01/20 14:33: Troponin I < 0.01 Orders (Tests/Meds): ED MEDICATIONS Discontinued Medications Generic Name Dose Route Start Last Admin Trade Name Freq PRN Reason Stop Dose Admin Iopamidol 70 ml 11/01/20 17:21 11/01/20 17:23 Iopamidol-370 (76%);100ml Bottle IV 11/01/20 17:22 70 ml ONCE ONE Administration Sodium Chloride 50 ml 11/01/20 17:21 11/01/20 17:23 0.9 % Sodium Chloride 50 Ml Vial IV 11/01/20 17:22 50 ml ONCE ONE Administration ORDERS Category Date Time Status CT angio chest Stat Cat Scan 11/01/20 16:02 Taken Troponin I Q3H Lab 11/01/20 19:00 Ordered Troponin I Q3H Lab 11/01/20 22:00 Ordered - Radiology Data #1 Image(s): Other (US doppler of extremities) Image Reviewed: Yes I reviewed the patient's radiology results, Yes I discussed the image results w/the radiologist Preliminary Findings: Normal/NAD - CT Data CT Scan: Chest Time Received: 18:[address] Reviewed: Yes: I have reviewed the patient's CT results, I have viewed the radiologist's interpretation Preliminary Findings: Normal/NAD - Reevaluation(s) Time: 18:30 Reevaluation #1: On reevaluation, the patient is feeling better. There is no hypoxia. No respiratory distress. Does have atelectasis on CT scan which is consistent with exam. Patient is to follow-up with PCP. Given strict return precautions. Verbalized understanding. Medical Decision Narrative: 65-year-old female presenting with some shortness of breath. The patient is recently postop from 2 orthopedic procedures. Concern for DVT versus PE. Work-up initiated. General Adult HPI - General Chief complaint: Shortness of Breath/Dyspnea Stated complaint: poss DVT Time Seen by Provider: 11/01/20 15:45 Mode of Arrival: Wheelchair Limitations: No Limitations Description of Symptoms (Recalled from ER Triage Doc. by RN): to ed per pvt car pt sent by ortho for eval pt with recent surgery to lt leg and lt arm after dx with fractures. pt c/o sob denies chest pain nausea, vomiting, cough, fever - History of Present Illness HPI narrative: This is a 65-year-old female presented to the emergency department with some shortness of breath. The patient has had some recent orthopedic injuries requiring operative repair. She had a left tibial fracture as well as a left hand fracture. The patient did require surgery on both of those. She went to follow-up with her orthopedic surgeon today she was noted to have some shortness of breath. The patient states that she was feeling winded when she was talking. She has not had any chest pain or palpitations. No cough or hemoptysis. She denies any fevers or chills. No headache or change in vision. No abdominal pain or vomiting. No focal weakness. - Related Data Home
--- NOTE | 2020-11-01 16:17 | ECG_ITS ---
APPROVED REPORT Exam: Resting ECG HR:92 bpm ECG Measurements Heart Rate 92 AXES MO 158 P 46 QRSd 82 QRS 53 QT 362 T 42 QTc 447 Conclusion Normal sinus rhythm Normal ECG Electronically signed by : Trent Garcia, 11/02/2020 06:32:58
[2020-11-01 17:02] LABS: Troponin I < 0.01 ng/ml (0.00-0.034)
[2020-11-01 18:46] VITALS: BP 134/74; PULSE 78; RESP 16; TEMP 36.6; O2SAT 96
== END 2020-11-01 18:47 | disposition home or self-care (01) ==
PROVIDERS: Emergency Provider Emergency Medicine
DX: J98.11 Atelectasis (principal); E03.9 Hypothyroidism, unspecified; R53.81 Other malaise; K21.9 Gastro-esophageal reflux disease without esophagitis; I10 Essential (primary) hypertension; Z79.899 Other long term (current) drug therapy
CPT/HCPCS: 71275; 84484; 93005; 93970; 99282; Q9967

== ENCOUNTER → 2020-11-08 10:08 | Outpatient (CLI) | payer BC, SELFPAY ==
--- NOTE | 2020-11-08 10:18 | XR_ITS ---
PROCEDURE: XR TIBIA FIBULA LT 2V CLINICAL INDICATION: s/p IMN L tibia + ORIF L fibula 10/12/20 Follow-up fracture/ORIF COMPARISON: CR XR TIBIA FIBULA LT 2V from 10/12/2020 FINDINGS: Status post ORIF distal tib fib fracture with intramedullary whit within the tibia and lateral fibular bone plate. The posterior splint has been removed. There is good alignment of the fracture fragments. There is some faint calcification along the medial aspect of the tibial fracture The joint spaces are well-preserved. No significant degenerative/arthritic changes. No erosive changes evident. Other findings:None. IMPRESSION: Good alignment status post ORIF left tib fib fracture Dictated by: Moody Garcia MD 11/08/2020 13:18 Moody Garcia MD in [place] 11/08/2020 13:18
--- NOTE | 2020-11-08 10:18 | XR_ITS ---
PROCEDURE: XR HAND LT MIN 3V CLINICAL INDICATION: s/p lt 5th MC FX Follow-up fracture COMPARISON: CR XR HAND LT MIN 3V from 11/01/2020 FINDINGS: Status post ORIF right 5th metacarpal fracture with good alignment. The distal aspect of the bone plate is not quite flush with the bony cortex by approximately 3 mm. Incidental note is made of hypertrophic changes of the triquetrum Other findings:None. IMPRESSION: Good alignment status post ORIF 5th metacarpal fracture Dictated by: Moody Garcia MD 11/08/2020 13:17 Moody Garcia MD in [place] 11/08/2020 13:17
== END ==
PROVIDERS: PCP Nurse Practitioner Family; Visit Provider Orthopaedic Surgery
DX: S82.202A Unspecified fracture of shaft of left tibia, initial encounter for closed fracture (principal); S82.402A Unspecified fracture of shaft of left fibula, initial encounter for closed fracture; S62.357A Nondisplaced fracture of shaft of fifth metacarpal bone, left hand, initial encounter for closed fracture
CPT/HCPCS: 73130; 73590

== ENCOUNTER → 2020-11-22 09:56 | Outpatient (CLI) | payer BC, SELFPAY ==
--- NOTE | 2020-11-22 10:00 | XR_ITS ---
PROCEDURE: XR TIBIA FIBULA LT 2V CLINICAL INDICATION: s/p fracture COMPARISON: CR XR TIBIA FIBULA LT 2V from 10/12/2020 CR XR TIBIA FIBULA LT 2V from 11/08/2020 FINDINGS: Intramedullary whit and screw fixation of the left tibia and plate screw fixation of the left distal fibula is again noted, demonstrate no significant interval change. Callus formation is noted adjacent to the fracture sites. The visualized knee joint is unremarkable. Bone density is within normal limits. No significant soft tissue abnormality. IMPRESSION: Internal fixation of the left tibia and distal fibula with healing fractures. No other significant interval change. Dictated by: Cee Slaughter 11/22/2020 10:33 Cee Slaughter in [place] 11/22/2020 10:33
--- NOTE | 2020-11-22 10:00 | XR_ITS ---
PROCEDURE: XR HAND LT MIN 3V CLINICAL INDICATION: s/p 5th MC fracture COMPARISON: CR XR HAND LT MIN 3V from 11/01/2020 CR XR HAND LT MIN 3V from 11/08/2020 FINDINGS: Internal fixation of left 5th metacarpal is noted. Satisfactory alignment. No acute fractures or dislocations. Bone density is normal. The joint spaces are well-preserved. No significant degenerative/arthritic changes. No erosive changes evident. Subchondral cystic changes noted in the trapezoid. Minor degenerative changes of the carpal bones Other findings:No significant soft tissue abnormality. IMPRESSION: Internal fixation of the left 5th metacarpal. No interval change compared to prior study. Dictated by: Cee Slaughter 11/22/2020 10:26 Cee Slaughter in [place] 11/22/2020 10:26
--- NOTE | 2020-11-22 10:00 | XR_ITS ---
PROCEDURE: XR ANKLE LT MIN 3V CLINICAL INDICATION: s/p fracture COMPARISON: CR XR ANKLE LT MIN 3V from 10/09/2020 CR XR ANKLE LT MIN 3V from 10/18/2020 FINDINGS: Removal of the plaster cast is noted on the current study. Internal fixation of the distal tibia and fibula are partially visualized. Callus formation noted adjacent to the fractures of the distal tibia and fibula. No significant interval change is noted compared to the prior studies. Degenerative changes of the left ankle joint is noted. The ankle mortise is congruent. No significant soft tissue abnormality is noted. IMPRESSION: Postsurgical changes of the left distal tibia and fibula. Healing fractures noted. No significant interval change. Dictated by: Cee Slaughter 11/22/2020 11:03 Cee Slaughter in [place] 11/22/2020 11:03
== END ==
PROVIDERS: PCP Nurse Practitioner Family; Visit Provider Orthopaedic Surgery
DX: S82.202A Unspecified fracture of shaft of left tibia, initial encounter for closed fracture (principal); S82.402A Unspecified fracture of shaft of left fibula, initial encounter for closed fracture; S62.357A Nondisplaced fracture of shaft of fifth metacarpal bone, left hand, initial encounter for closed fracture
CPT/HCPCS: 73130; 73590; 73610

== ENCOUNTER 2020-11-22 11:19 | Outpatient (RCR) | payer BC, SELFPAY | END 2020-11-22 12:00 | disposition home or self-care (01) | LOC: PT 11:19 | PROVIDERS: Visit Provider Orthopaedic Surgery | DX: S82.202A Unspecified fracture of shaft of left tibia, initial encounter for closed fracture (principal); S82.402A Unspecified fracture of shaft of left fibula, initial encounter for closed fracture | CPT/HCPCS: 97760 ==

== ENCOUNTER → 2020-12-06 08:30 | Outpatient (CLI) | payer BC, SELFPAY ==
--- NOTE | 2020-12-06 08:50 | XR_ITS ---
PROCEDURE: XR ANKLE WT BEARING LT MIN 3V CLINICAL INDICATION: s/p LT ankle fracture Follow-up fracture COMPARISON: CR XR ANKLE LT MIN 3V from 10/09/2020 CR XR ANKLE LT MIN 3V from 10/18/2020 CR XR ANKLE LT MIN 3V from 11/22/2020 FINDINGS: Status post ORIF distal tib fib with lateral fibular bone plate and multiple cortical screws. Intramedullary whit is present within the tibia. Healing fracture noted at the distal tibia shaft. Fibular fracture line is still visible. There is good alignment. IMPRESSION: Status post ORIF distal tib fib as described above with healing tibial fracture. Fibular fracture still visible not significantly changed Dictated by: Moody Garcia MD 12/06/2020 10:37 Moody Garcia MD in [place] 12/06/2020 10:37
--- NOTE | 2020-12-06 08:50 | XR_ITS ---
PROCEDURE: XR HAND LT MIN 3V CLINICAL INDICATION: s/p left hand fracture Follow-up fracture COMPARISON: DX XR WRIST LT MIN 3V from 10/25/2020 XA XR HAND LT MIN 3V from 10/26/2020 FINDINGS: Status post placement of a bone plate along the dorsal aspect the 5th finger with good alignment. Osteoarthritic changes are present within the wrist at the scapho trapezium joint and 1st metacarpal-carpal joint.. Other findings:None. IMPRESSION: Good alignment status post ORIF 5th metacarpal fracture Dictated by: Moody Garcia MD 12/06/2020 10:39 Moody Garcia MD in [place] 12/06/2020 10:39
== END ==
PROVIDERS: PCP Internal Medicine Adolescent Medicine; Visit Provider Orthopaedic Surgery
DX: S82.202A Unspecified fracture of shaft of left tibia, initial encounter for closed fracture (principal); S82.402A Unspecified fracture of shaft of left fibula, initial encounter for closed fracture; S62.327A Displaced fracture of shaft of fifth metacarpal bone, left hand, initial encounter for closed fracture
CPT/HCPCS: 73130; 73610

== ENCOUNTER 2020-12-06 11:08 | Outpatient (RCR) | payer BC, SELFPAY | END 2020-12-06 11:48 | disposition home or self-care (01) | LOC: PT 11:08 | PROVIDERS: Visit Provider Orthopaedic Surgery | DX: S82.202A Unspecified fracture of shaft of left tibia, initial encounter for closed fracture (principal) | CPT/HCPCS: 97760 ==

== ENCOUNTER → 2021-01-07 08:40 | Outpatient (CLI) | payer BC, SELFPAY ==
--- NOTE | 2021-01-07 08:45 | XR_ITS ---
PROCEDURE: XR HAND LT MIN 3V CLINICAL INDICATION: s/p ORIF L 5th metacarpal shaft fracture 10/26/20 COMPARISON: CR XR HAND LT MIN 3V from 11/01/2020 CR XR HAND LT MIN 3V from 11/08/2020 CR XR HAND LT MIN 3V from 11/22/2020 CR XR HAND LT MIN 3V from 12/06/2020 FINDINGS: Internal fixation of the left 5th metacarpal is noted with plate and screws. Satisfactory position. Healing fracture of the 5th metacarpal is noted. No other acute fractures or dislocations. Mild osteopenia. The rest of the carpals, metacarpals and phalanges are unremarkable. No significant soft tissue abnormality. IMPRESSION: Internal fixation of the left 5th metacarpal. No interval change. Dictated by: Cee Slaughter 01/07/2021 11:45 Cee Slaughter in [place] 01/07/2021 11:45
--- NOTE | 2021-01-07 08:45 | XR_ITS ---
PROCEDURE: XR TIBIA FIBULA LT 2V CLINICAL INDICATION: s/p IMN L tibia + ORIF L fibula 10/12/20 COMPARISON: CR XR TIBIA FIBULA LT 2V from 10/12/2020 CR XR TIBIA FIBULA LT 2V from 11/08/2020 CR XR TIBIA FIBULA LT 2V from 11/22/2020 FINDINGS: Intramedullary whit and screw fixation of the left tibial diaphysis is noted. Plate and screw fixation of the distal fibula is noted. Healing fractures of the distal 1/3 of the left tibial and fibular diaphysis. Minor degenerative changes of the ankle joint, partially visualized. Bone density is otherwise unremarkable. No significant soft tissue abnormality. IMPRESSION: Postsurgical changes with healing fractures of the left tibia and fibula. No acute abnormality. Dictated by: Cee Slaughter 01/07/2021 11:44 Cee Slaughter in [place] 01/07/2021 11:44
== END ==
PROVIDERS: PCP Internal Medicine Adolescent Medicine; Visit Provider Orthopaedic Surgery
DX: S82.202A Unspecified fracture of shaft of left tibia, initial encounter for closed fracture (principal); S82.402A Unspecified fracture of shaft of left fibula, initial encounter for closed fracture; S62.357A Nondisplaced fracture of shaft of fifth metacarpal bone, left hand, initial encounter for closed fracture
CPT/HCPCS: 73130; 73590

== ENCOUNTER 2021-01-18 16:00 | Outpatient (RCR) | payer BC, SELFPAY ==
--- NOTE | 2020-11-24 17:39 | HMH.PTOPEV ---
PT Outpatient Evaluation Rehab PT Outpatient Evaluation Start: 11/24/20 16:22 Freq: Status: Active Protocol: Document 11/24/20 16:53 DEBORAHRAFAT (Rec: 11/24/20 17:39 FAWADETHEL [id number]) Electronically Signed By Jayme Rai PT 11/24/20 16:53 Outpatient Therapy Subjective History Subjective History This is the initial Physical Therapy evaluation for Nimisha Martinez. Pt is a 65 y/o female referred to PT for rehab s/p L tib/fib and L 5th metatarsal ORIF. Pt reports original injury was from a slip and fall on the ice. Pt reports fall was 10/09/20. The initial surgery was done 10/12/20 for the tib/fib fx and 10/26/20 for the L hand fx. Chief Complaint Stiff,Decreased Peanut Salter Strength, Decreased Coordination Symptom Type Ache,Throb,Dull Symptoms Relieved By Rest/Positioning Symptoms Aggravated By Physical Activity,Walking Prior Functional Limitations None Current Functional Limitations Reaching,Lifting,Housework, Driving,Standing,Squatting, Recreation Activity,Walking Level of pain today (0-10) 0 Pain scale - at its best (0-10) 0 Pain scale - at its worst (0-10) 5 Wrist/Hand Eval Palpation Tenderness/Visual Exam Wrist/Hand Palpation Findings Tenderness thenar eminence atrophy hand/finger exam left standard Flexibility Deficits Hand Intrinsics Muscle Length (L) Moderate Tightness Wrist Range of Motion Left Wrist Extension Active Range of Motion ( 40 degrees) Wrist Flexion Active Range of Motion ( 45 degrees) Finger Range of Motion Left Little Finger Finger ROM Limitations Soft Tissue Tightness,Muscle Weakness Wrist Manual Muscle Testing Left Wrist Strength Reason Not Measured Orthopedic Precautions Wrist Extension Strength Grade 3- Fair- Wrist Flexion Strength Grade 3- Fair- Ankle/Foot Eval Gait Observation General Gait Pattern Observation Antalgic Gait Assistive Device Ambulation Assistive Device Rolling Walker Palpation Tenderness left Ankle/Foot Palpation Findings Tenderness ROM Ankle/Foot Dorsiflexion w/Knee Extended 10 from neutral Active Range Motion (degrees) Ankle/Foot Plantar Flexion Active Range 30 of Motion (degrees) Ankle/Foot Eversion Active Range of 10 Motion (degrees) Ankle/Foot Inversion Active Range of 10 Motion (degrees) Ankle/Foot ROM Limitati
== END 2021-01-18 16:05 | disposition home or self-care (01) ==
LOC: PT 16:00
PROVIDERS: PCP Nurse Practitioner Family; Visit Provider Orthopaedic Surgery
DX: S82.202D Unspecified fracture of shaft of left tibia, subsequent encounter for closed fracture with routine healing (principal); S62.357D Nondisplaced fracture of shaft of fifth metacarpal bone, left hand, subsequent encounter for fracture with routine healing
CPT/HCPCS: 97110; 97112; 97140; 97163; 97164

== ENCOUNTER → 2021-01-20 12:01 | Outpatient (CLI) | payer BC, SELFPAY ==
--- NOTE | 2021-01-20 12:12 | XR_ITS ---
PROCEDURE: XR CHEST 2V CLINICAL HISTORY: COUGH COMPARISON: DX XR CHEST 2V from 07/02/2019 CR XR CHEST 2V from 11/01/[address] ANGIO CHEST from 11/01/2020 FINDINGS: The cardiomediastinal silhouette and pulmonary vascularity are within normal limits. No lobar consolidation or collapse is evident. There is nodularity in the left hilar region which could very well represent overlap of hilar vessels. CT scan 11/01/2020 did not demonstrate any nodules in this area and the patient is slightly rotated on today's exam. Follow-up chest non rotated radiograph may confirm this as hilar vascular overlap. There is evidence of old granulomatous disease. No lobar consolidation or collapse. No acute bony abnormalities. IMPRESSION: No acute finding. Nodularity in the left hilum which may be due to vascular overlap and may be confirmed with follow-up. Dictated by: Moody Garcia MD 01/20/2021 14:01 Moody Garcia MD in [place] 01/20/2021 14:01
[2021-01-20 12:42] LABS: Basophils # 0.1 K/mm3 (0-0.2); Eosinophils # 0.1 K/mm3 (0.0-0.4); Hematocrit 33.3 % (37.0-47.0); Hemoglobin 10.8 g/dL (12.2-16.2); Lymphocytes # 2.8 K/mm3 (0.7-4.5); Lymphocytes % 36.5 % (10-50); Mean Corpuscular HGB Conc 32.4 g/dL (31.8-35.4); Mean Corpuscular Hemoglobin 25.1 pg (27.0-31.2); Mean Corpuscular Volume 77.4 fl (81-99); Mean Platelet Volume 8.4 fl (7.4-10.4); Monocytes # 0.3 K/mm3 (0.1-1.0); Neutrophils # 4.3 K/mm3 (1.8-7.8); Neutrophils % 57.4 % (37.0-80.0); Platelet Count 427 K/mm3 (142-424); Red Cell Distribution Width 14.8 % (11.5-17.5); White Blood Count 7.6 K/mm3 (4.8-10.8)
[2021-01-20 12:44] LABS: Chloride 104 mmol/L (98-107); Potassium 3.9 mmoL/L (3.5-5.1); Sodium 139 mmol/L (136-145)
[2021-01-20 12:46] LABS: Blood Urea Nitrogen 13 mg/dl (7-17); Estimated Glomerular Filt Rate 63 ml/min (>60); GFR (African American) 76 ML/MIN (>60)
[2021-01-20 12:47] LABS: Alanine Aminotransferase 14 U/L (12-78); Albumin Level 4.3 g/dl (3.5-5.0); Albumin/Globulin Ratio 1.3 (1.1-1.8); Alkaline Phosphatase 148 U/L (38-126); Anion Gap 11.9 mEq/L (5-15); Aspartate Amino Transferase 20 U/L (14-36); Bilirubin,Total 0.3 mg/dl (0.2-1.3); Carbon Dioxide 27 mmol/L (22.0-30.0); Globulin 3.3 g/dL (1.3-3.2); Total Protein,Serum 7.6 g/dl (6.3-8.2)
[2021-01-20 12:48] LABS: Calcium 8.5 mg/dl (8.4-10.2); Glucose 110 mg/dl (74-100)
== END ==
PROVIDERS: Visit Provider Internal Medicine Adolescent Medicine
DX: R05 Cough (principal)
CPT/HCPCS: 36415; 71046; 80053; 85025

== ENCOUNTER → 2021-02-25 08:08 | Outpatient (CLI) | payer BC, SELFPAY ==
--- NOTE | 2021-02-25 08:11 | XR_ITS ---
PROCEDURE: XR TIBIA FIBULA LT 2V CLINICAL INDICATION: s/p ORIF LT fibula IMN Lt tibia Follow-up fracture COMPARISON: CR XR ANKLE LT MIN 3V from 10/09/2020 CR XR TIBIA FIBULA LT 2V from 10/12/2020 CR XR TIBIA FIBULA LT 2V from 11/08/2020 CR XR TIBIA FIBULA LT 2V from 11/22/2020 CR XR TIBIA FIBULA LT 2V from 01/07/2021 FINDINGS: Prior ORIF distal tib fib fracture with intramedullary whit in the tibia and lateral bone plate with multiple cortical screws in the fibula with good alignment of the healing distal tib fib fracture no hardware malfunction evident. IMPRESSION: Good alignment status post ORIF distal tib fib fractures Dictated by: Moody Garcia MD 02/25/2021 10:07 Moody Garcia MD in [place] 02/25/2021 10:07
--- NOTE | 2021-02-25 08:11 | XR_ITS ---
PROCEDURE: XR HAND LT MIN 3V CLINICAL INDICATION: s/p ORIF LT 5th MC fx COMPARISON: CR XR HAND LT MIN 3V from 11/08/2020 CR XR HAND LT MIN 3V from 11/22/2020 CR XR HAND LT MIN 3V from 12/06/2020 CR XR HAND LT MIN 3V from 01/07/2021 FINDINGS: Status post ORIF 5th metacarpal fracture with dorsal bone plate and multiple cortical screws with good alignment not significantly changed. The joint spaces are well-preserved. No significant degenerative/arthritic changes. No erosive changes evident. Other findings:None. IMPRESSION: Good alignment status post ORIF 5th metacarpal fracture Dictated by: Moody Garcia MD 02/25/2021 10:05 Moody Garcia MD in [place] 02/25/2021 10:05
== END ==
PROVIDERS: PCP Internal Medicine Adolescent Medicine; Visit Provider Orthopaedic Surgery
DX: S82.202A Unspecified fracture of shaft of left tibia, initial encounter for closed fracture (principal); S82.402A Unspecified fracture of shaft of left fibula, initial encounter for closed fracture; S62.327A Displaced fracture of shaft of fifth metacarpal bone, left hand, initial encounter for closed fracture
CPT/HCPCS: 73130; 73590

== ENCOUNTER 2021-03-26 10:10 | Emergency (ER) | payer BC, SELFPAY ==
[2021-03-26 10:17] VITALS: BP 143/75; PULSE 81; RESP 16; TEMP 36.7; O2SAT 100; BMI 24.0
[2021-03-26 10:35] LABS: Color,Urine Yellow (Yellow)
[2021-03-26 10:36] LABS: Apearance,Urine Turbid (Clear); Bilirubin,Urine Negative (Negative); Blood, Urine Negative (Negative); Glucose,Urine (UA) Negative (Negative); Ketones,Urine Negative (Negative); Protein,Urine Negative (Negative); Specific Gravity, Urine 1.025 (1.005-1.030); Urobilinogen,Urine 0.2 EU/dl (0.2)
[2021-03-26 10:37] LABS: UTC Leukocyte Esterase,Urine Trace (Negative); UTC Nitrate,Urine Negative (Negative)
--- NOTE | 2021-03-26 11:04 | HMH.EDUTC ---
[facility] [place] Dis[place] Clinical Impression: UTI (urinary tract infection) Qualifiers: Urinary tract infection type: site unspecified Hematuria presence: with hematuria Qualified Code(s): N39.0 - Urinary tract infection, site not specified Disposition: Home, Self-Care Condition on Discharge: Good Instructions: Urinary Tract Infection, DI for Urinary Tract Infection (UTI) Additional Instructions: Drink plenty of fluids. Take tylenol or ibuprofen for pain or fever. Take the medications as directed. Follow up with your regular doctor. GO TO THE ER FOR ANY WORSENING SYMPTOMS The pyridium will make your urine turn orange, this is an expected side effect. It will stain your clothes if it comes into contact with them. Prescriptions: Ciprofloxacin HCl 500 mg PO BID 7 Days #14 tab Transmission Status: Received by [facility] Phenazopyridine HCl [Pyridium 200mg Tablet] 200 pow PO TID #6 tab Transmission Status: Received by [facility] Referrals: Trent Garcia MD [Primary Care Provider] - Time of Disposition: 11:08 Medical Decision Making - Medical Records Medical records reviewed: No: I reviewed the patient's medical records. - Romeo Inquiry Pt receiving controlled substance: No Vital Signs: 03/26/21 10:17 03/26/21 11:25 Temperature 98.1 F 98 F Temperature Source Oral Pulse Rate 81 Pulse Rate [Left] 81 Respiratory Rate 16 16 Blood Pressure 143/75 H Blood Pressure [Right Arm] 143/75 H Blood Pressure Mean [Right Arm] 97 02 Sat by Pulse Oximetry 100 - Lab Data Lab results reviewed: Yes: I reviewed the patient's lab results. Lab Results 03/26/21 10:32: Urine Color Yellow, Urine Appearance Turbid, Urine pH 7.0, Ur Specific [place] 1.025, Urine Protein Negative, Urine Glucose (UA) Negative, Urine Ketones Negative, Urine Blood Negative, Urine Nitrate Negative, Urine Bilirubin Negative, Urine Urobilinogen 0.2, Ur Leukocyte Esterase Trace Orders (Tests/Meds): ORDERS Category Date Time Status Urine Culture Stat Micro 03/26/21 10:30 Results [facility] [place] HPI - General Stated complaint: possible kidney inf Time Seen by Provider: 03/26/21 10:45 Mode of Arrival: Ambulatory Source of Information: Patient Limitations: No Limitations Description of Symptoms (Recalled from Triage Doc. by RN): pt c/o of pressure in her uterus that is uncomfertable. she believes she has a kidney infection. pt denies urinary symptoms. pt also c/o of sinus pressure and drainage. HEENT Symptoms (Recalled from RN notes): Yes (sinus pressure and drainage) Resp Symptoms (Recalled from RN notes): No Skin Symptoms (Recalled from RN notes): No MS Symptoms (Recalled from RN notes): No Functional Status (Recalled from RN notes): na - History of Present Illness Provider Complaint: She states that for the past 3 to 4 days she has been having slowly worsening urinary frequency, dysuria, and urgency. She has a history of getting uti's every so often and that's what she thinks is happening now. - Related Data Home Medications Medication Instructions Recorded Confirmed lisinopril 5 mg tablet 5 mg PO DAILY 30 Days #30 tab 06/10/18 02/25/21 omeprazole 20 mg capsule,delayed 20 mg PO DAILY 90 Days #90 cap 06/10/18 02/25/21 release Cetirizine HCl [Zyrtec] 10 mg PO DAILY 07/21/19 02/25/21 Ergocalciferol (Vitamin D2) 50,000 unit PO WEEKLY 10/12/20 02/25/21 [Vitamin D2] Folic Acid/Vit B Complex and C 400 mcg PO DAILY 10/12/20 02/25/21 [Super B Complex Tablet] Previous Rx's Medication Instructions Recorded levothyroxine 75 mcg tablet 75 mcg PO DAILY #90 tab 06/07/20 Docusate Sodium [Docusate Sodium 100 mg PO BIDP PRN cap 10/13/20 100mg Cap] Nitrofurantoin Monohyd/M-Cryst 100 mg PO BID 10 Days #20 cap 10/13/20 [Macrobid 100 mg Capsule] Ciprofloxacin HCl 500 mg PO BID 7 Days #14 tab 03/26/21 Phenazopyridine HCl [Pyridium 200 pow PO TID #6 tab 03/26/21 200mg Tablet] Allerg
[2021-03-26 11:25] VITALS: BP 143/75; PULSE 81; RESP 16; TEMP 36.6
== END 2021-03-26 11:25 | disposition home or self-care (01) ==
PROVIDERS: Emergency Provider Nurse Practitioner Family; PCP Internal Medicine Adolescent Medicine
DX: N30.00 Acute cystitis without hematuria (principal); K21.9 Gastro-esophageal reflux disease without esophagitis; I10 Essential (primary) hypertension
CPT/HCPCS: 81003; 87086; 99202; G0463

== ENCOUNTER → 2021-04-14 12:06 | Outpatient (CLI) | payer BC, SELFPAY | PROVIDERS: Visit Provider Nurse Practitioner Family | DX: R30.0 Dysuria (principal) | CPT/HCPCS: 87086 ==

== ENCOUNTER → 2021-05-25 08:22 | Outpatient (CLI) | payer BC, SELFPAY ==
[2021-05-25 09:29] LABS: Free T4 (Free Thyroxine) 1.06 ng/dl (0.78-2.19)
[2021-05-25 09:44] LABS: Thyroid Stimulating Hormone 4.13 uIU/mL (0.465-4.68)
== END ==
PROVIDERS: Visit Provider Otolaryngology
DX: E03.9 Hypothyroidism, unspecified (principal)
CPT/HCPCS: 36415; 84439; 84443

== ENCOUNTER → 2021-06-06 13:27 | Outpatient (CLI) | payer BC, SELFPAY ==
--- NOTE | 2021-06-06 13:30 | XR_ITS ---
PROCEDURE: XR TIBIA FIBULA LT 2V CLINICAL INDICATION: IM nailing left tibia, ORIF LT ankle COMPARISON: CR XR TIBIA FIBULA LT 2V from 11/08/2020 CR XR TIBIA FIBULA LT 2V from 11/22/2020 CR XR TIBIA FIBULA LT 2V from 01/07/2021 CR XR TIBIA FIBULA LT 2V from 02/25/2021 FINDINGS: S/p ORIF distal fibula with a lateral bone plate. Intramedullary whit is present in the tibia with healing fractures of the distal shaft of the tibia and fibula with good alignment. No orthopedic hardware complications. IMPRESSION: Good alignment healing distal tib fib fracture status post ORIF Dictated by: Moody Garcia MD 06/06/2021 15:13 Moody Garcia MD in [place] 06/06/2021 15:13
== END ==
PROVIDERS: PCP Internal Medicine Adolescent Medicine; Visit Provider Orthopaedic Surgery
DX: Z09 Encounter for follow-up examination after completed treatment for conditions other than malignant neoplasm (principal); S82.202D Unspecified fracture of shaft of left tibia, subsequent encounter for closed fracture with routine healing
CPT/HCPCS: 73590

== ENCOUNTER 2021-06-16 14:30 | Emergency (ER) | payer OTHER, BC, SELFPAY ==
--- NOTE | 2021-06-16 14:44 | XR_ITS ---
PROCEDURE: XR WRIST LT MIN 3V CLINICAL INDICATION: fall COMPARISON: DX XR WRIST LT MIN 3V from 10/25/2020 FINDINGS: There are mild osteoarthritic changes at the scapho trapezium joint. No acute fracture or dislocation is evident. Lucencies are present in the 5th metacarpal from prior ORIF hardware removal. Other findings:None. IMPRESSION: No acute findings. Dictated by: Moody Garcia MD 06/16/2021 16:01 Moody Garcia MD in [place] 06/16/2021 16:01
[2021-06-16 15:32] VITALS: BP 157/74; PULSE 96; RESP 18; TEMP 36.8; O2SAT 100; BMI 24.9
--- NOTE | 2021-06-16 16:05 | HMH.EDUTC ---
[facility] [place] Clinical Impression: Left wrist sprain Qualifiers: Encounter type: initial encounter Qualified Code(s): S63.502A - Unspecified sprain of left wrist, initial encounter Disposition: Home, Self-Care Condition on Discharge: Good Instructions: DI for Wrist Sprain Additional Instructions: no lifting on left arm rest Ice with cold pack for 20 minutes remove may repeat for comfort every hour Darwin wrap for support and swelling no less in the shower. Be sure not too tight but not to lose either Elevate with wrist above your heart as much as possible to help reduce swelling and therefore pain Ibuprofen every 6 hours as needed for pain or inflammation. If needs something more you can take Tylenol every 4 hours as needed as long as her primary care has told he was okayed for you to take both. If improving any do not need to follow-up you can bring begin exercising 2-3 weeks after injury. Follow-up immediately if new or worsening symptoms or no noticeable improvement over the next 3-5 days. call ortho if no improvement Referrals: Trent Garcia MD [Primary Care Provider] - Time of Disposition: 16:23 Medical Decision Making - Romeo Inquiry Pt receiving controlled substance: No Vital Signs: 06/16/21 15:32 Temperature 98.2 F Temperature Source Oral Pulse Rate [Right Radial] 96 H Respiratory Rate 18 Blood Pressure [Right Arm] 157/74 H Blood Pressure Mean [Right Arm] 101 Blood Pressure Source [Right Arm] Automatic Cuff Blood Pressure Position [Right Arm] Sitting 02 Sat by Pulse Oximetry 100 Oxygen Delivery Method Room Air [facility] [place] - General Chief complaint: Urgent Treatment Center Stated complaint: AO [id number] @1420 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 by RN): c/o left hand pain after falling at work HEENT Symptoms (Recalled from RN notes): No Resp Symptoms (Recalled from RN notes): No Skin Symptoms (Recalled from RN notes): No MS Symptoms (Recalled from RN notes): Yes (left hand/wrist injury) Functional Status (Recalled from RN notes): n/a - History of Present Illness Provider Complaint: 65 yr old female presnets for left wrist pain. pt states she got her foot caught on a strap from a skid and fell to floor hurting lt wrist - Related Data Home Medications Medication Instructions Recorded Confirmed lisinopril 5 mg tablet 5 mg PO DAILY 30 Days #30 tab 06/10/18 06/06/21 omeprazole 20 mg capsule,delayed 20 mg PO DAILY 90 Days #90 cap 06/10/18 06/06/21 release Cetirizine HCl [Zyrtec] 10 mg PO DAILY 07/21/19 06/06/21 Ergocalciferol (Vitamin D2) 50,000 unit PO WEEKLY 10/12/20 06/06/21 [Vitamin D2] Folic Acid/Vit B Complex and C 400 mcg PO DAILY 10/12/20 06/06/21 [Super B Complex Tablet] Previous Rx's Medication Instructions Recorded Docusate Sodium [Docusate Sodium 100 mg PO BIDP PRN cap 10/13/20 100mg Cap] Nitrofurantoin Monohyd/M-Cryst 100 mg PO BID 10 Days #20 cap 10/13/20 [Macrobid 100 mg Capsule] Phenazopyridine HCl [Pyridium 200 pow PO TID #6 tab 03/26/21 200mg Tablet] levothyroxine 75 mcg tablet 75 mcg PO DAILY #90 tab 06/06/21 Allergies Allergy/AdvReac Type Severity Reaction Status Date / Time Sulfa (Sulfonamide Allergy Intermediate I-HIVES/ITC Verified 06/07/21 09:49 Antibiotics) YUE/JOCELYNE NG - Worker's Comp Is this a Worker's Comp case?: No [facility] History - Hepatitis A Screen Drug use history?: No High risk sexual behaviors?: No History of sexually transmitted infection?: No Currently employed?: No Childcare worker?: No Do you have indoor plumbing?: Yes Do you have electricity?: Yes Attestation statement:: This patient has been screened for Hepatitis A risk factors. I have reviewed the patient's past medical history: Yes Medical History: Reports:: Cancer, Gastroesophagea
[2021-06-16 16:33] VITALS: BP 157/74; PULSE 96; RESP 18; TEMP 36.8; O2SAT 100
== END 2021-06-16 16:33 | disposition home or self-care (01) ==
PROVIDERS: Emergency Provider Nurse Practitioner Family; PCP Internal Medicine Adolescent Medicine
DX: S63.502A Unspecified sprain of left wrist, initial encounter (principal); W01.0XXA Fall on same level from slipping, tripping and stumbling without subsequent striking against object, initial encounter; Y92.63 Factory as the place of occurrence of the external cause; Y99.0 Civilian activity done for income or pay
CPT/HCPCS: 73110; 99202; G0463

== ENCOUNTER 2021-10-02 10:12 | Emergency (ER) | payer BC, SELFPAY ==
[2021-10-02 10:30] VITALS: BP 150/84; PULSE 118; RESP 22; TEMP 36.7; O2SAT 97; BMI 25.7
[2021-10-02 10:56] LABS: Apearance,Urine Clear (Clear); Bilirubin,Urine Negative (Negative); Blood, Urine Trace (Negative); Color,Urine Yellow (Yellow); Glucose,Urine (UA) Negative (Negative); Ketones,Urine Negative (Negative); PH,Urine 7.5 (5.0-8.5); Protein,Urine 1+ (Negative); UTC Leukocyte Esterase,Urine 3+ (Negative); UTC Nitrate,Urine Negative (Negative); Urobilinogen,Urine 0.2 EU/dl (0.2)
--- NOTE | 2021-10-02 11:02 | HMH.EDUTC ---
[facility] [place] Clinical Impression: UTI (urinary tract infection) Qualifiers: Urinary tract infection type: site unspecified Hematuria presence: with hematuria Qualified Code(s): N39.0 - Urinary tract infection, site not specified Disposition: Home, Self-Care Condition on Discharge: Good Instructions: Urinary Tract Infection, DI for Urinary Tract Infection (UTI), Cefdinir Additional Instructions: *Increase fluids. Water not Soda or Tea *Start antibiotic immediately and be sure to take as ordered for the FULL length of time although you should start to see improvement over the next 48 hours *Pyridium as needed Remember this medication will turn your urine [place]. This is normal but it will stain what ever it gets on *You should not use Pyridium for more than 48 hours. If so , follow up with your primary physician to review urine culture and ensure that antibiotic is adequate for infection *Be SURE to follow up anytime for new or worsening symptoms with your family doctor. AND in 48 hours for urine culture results with your family doctor, if you do not have a doctor then you may call back to the [facility] for urine culture results and further treatment. We do recommend that you choose and establish care with a Primary Care Physician. AND follow up with them in 10-14 days to repeat UA to ensure infection is resolved and blood no longer present *Be sure to let your PCP know that we sent urine cultures from the [facility] so they can follow up to ensure that you area the on the correct antibiotic Call your doctor office and make appointment for 48 hours (2 days from today) to follow up and get the results of your urine culture and further treatment Prescriptions: Fluconazole [Diflucan 150mg tab] 150 mg PO ONCE #1 tab Transmission Status: Pending to [facility] Cefdinir [Omnicef 300mg Capsule] 300 mg PO BID 7 Days #14 cap Transmission Status: Pending to [facility] Phenazopyridine HCl [Pyridium 200mg Tablet] 200 pow PO TID #6 tab Transmission Status: Pending to [facility] Referrals: Aaliyah Nails APRN [Primary Care Provider] - As needed Time of Disposition: 11:14 Medical Decision Making - Romeo Inquiry Pt receiving controlled substance: No Romeo was queried for this patient: No Vital Signs: 10/02/21 10:30 Temperature 98.0 F Temperature Source Oral Pulse Rate [Right Brachial] 118 H Respiratory Rate 22 Blood Pressure [Right Arm] 150/84 H Blood Pressure Mean [Right Arm] 106 Blood Pressure Source [Right Arm] Automatic Cuff Blood Pressure Position [Right Arm] Sitting 02 Sat by Pulse Oximetry 97 Oxygen Delivery Method Room Air - Lab Data Lab results reviewed: Yes: I reviewed the patient's lab results. Lab Results 10/02/21 10:55: Urine Color Yellow, Urine Appearance Clear, Urine pH 7.5, Ur Specific [place] 1.020, Urine Protein 1+, Urine Glucose (UA) Negative, Urine Ketones Negative, Urine Blood Trace, Urine Nitrate Negative, Urine Bilirubin Negative, Urine Urobilinogen 0.2, Ur Leukocyte Esterase 3+ A Orders (Tests/Meds): ORDERS Category Date Time Status Urine Culture Stat Micro 10/02/21 10:55 Ordered [facility] [place] - General Stated complaint: possible kidney infection Time Seen by Provider: 10/02/21 11:03 Mode of Arrival: Ambulatory Source of Information: Patient Limitations: No Limitations Description of Symptoms (Recalled from Triage Doc. by RN): PATIENT C/O PRESSURE AND SPASMS TO BLADDER AREA SINCE YESTERDAY. RECENTLY TREATED FOR UTI APPROX 1 WEEK AGO. SHE STATES SYMPTOMS SUBSIDED, BUT CAME BACK YESTERDAY HEENT Symptoms (Recalled from RN notes): No Resp Symptoms (Recalled from RN notes): No Skin Symptoms (Recalled from RN notes): No MS Symptoms (Recalled from RN notes): No Functional Status (Recalled from RN notes): WNL - History of Present Illness Provider Complaint: Patient states that she has history of UTI States that she has been having burning with urination and bladder spasms
[2021-10-02 11:15] VITALS: BP 150/84; PULSE 118; RESP 22; TEMP 36.7; O2SAT 97
== END 2021-10-02 11:20 | disposition home or self-care (01) ==
PROVIDERS: Emergency Provider Nurse Practitioner; PCP Nurse Practitioner Family
DX: N39.0 Urinary tract infection, site not specified (principal); I10 Essential (primary) hypertension; K21.9 Gastro-esophageal reflux disease without esophagitis; Z85.9 Personal history of malignant neoplasm, unspecified
CPT/HCPCS: 81003; 87086; 99202; G0463

== ENCOUNTER → 2021-12-15 08:58 | Outpatient (CLI) | payer BC, SELFPAY ==
--- NOTE | 2021-12-15 09:01 | XR_ITS ---
FINAL REPORT CLINICAL HISTORY: Im nailing 2020 COMPARISON: June 06, 2021 FINDINGS: LEFT TIBIA FIBULA 2 views were obtained. There are postoperative changes of ORIF involving the tibia and fibula. There has been further interval healing of the distal tibial and fibular fractures. No new bony abnormality is seen. The joint spaces are intact. There is no soft tissue abnormality. IMPRESSION: Post operative changes with healing of the distal tibial and fibular fractures. Reviewed, Interpreted and Dictated by Albaro Harvey III, MD Transcribed by Kamila Dennison Authenticated by Albaro Harvey III, MD on 12/15/2021 10:26:37 AM [facility]
--- NOTE | 2021-12-15 10:08 | XR_ITS ---
FINAL REPORT CLINICAL HISTORY: left knee pain FINDINGS: LEFT KNEE 4 views of the left knee were obtained. There are postoperative changes in the tibia with an intramedullary whit. There is no acute fracture or dislocation. Visualized joint spaces are normally aligned. Soft tissues are unremarkable. IMPRESSION: No acute bony abnormality. Reviewed, Interpreted and Dictated by Albaro Harvey III, MD Transcribed by Kamila Dennison Authenticated by Albaro Harvey III, MD on 12/15/2021 12:24:15 PM [facility]
== END ==
PROVIDERS: PCP Internal Medicine Adolescent Medicine; Visit Provider Orthopaedic Surgery
DX: S82.202A Unspecified fracture of shaft of left tibia, initial encounter for closed fracture (principal); S82.402A Unspecified fracture of shaft of left fibula, initial encounter for closed fracture; M25.562 Pain in left knee
CPT/HCPCS: 73564; 73590

== ENCOUNTER → 2021-12-27 10:02 | Outpatient (CLI) | payer BC, SELFPAY ==
--- NOTE | 2021-12-27 10:02 | MR_ITS ---
FINAL REPORT CLINICAL HISTORY: possible meniscus tear pain on medial side of left knee when pressing on it , no recent trauma FINDINGS: Multiplanar MR imaging of the left knee was performed without contrast. The medial and lateral menisci are intact without evidence of meniscal tear. The anterior and posterior cruciate ligaments are intact. The medial collateral ligament and lateral ligamentous complex are intact. The patellar and quadriceps tendons are intact. There is no evidence of fracture. There are postoperative changes in the tibia. No focal abnormality is identified of the articular cartilage. Small joint effusion is seen. The musculature is intact. No soft tissue mass or cyst is identified. IMPRESSION: Small joint effusion. No evidence of meniscal tear. Reviewed, Interpreted and Dictated by Albaro Harvey III, MD Transcribed by Mar Cabrales Authenticated by Albaro Harvey III, MD on 12/27/2021 12:21:21 PM [facility]
== END ==
PROVIDERS: PCP Internal Medicine Adolescent Medicine; Visit Provider Orthopaedic Surgery
DX: M25.562 Pain in left knee (principal); G89.29 Other chronic pain
CPT/HCPCS: 73721

== ENCOUNTER → 2022-02-03 12:28 | Outpatient (CLI) | payer BC, OTHER, SELFPAY ==
--- NOTE | 2022-02-03 12:33 | XR_ITS ---
FINAL REPORT CLINICAL HISTORY: pre op COMPARISON: January 20, 2021 FINDINGS: Two views of the chest were obtained. The heart size and pulmonary vascularity are within normal limits. The mediastinum is normal. No acute pulmonary abnormality is identified. There is no pneumothorax. The bony thorax is intact. IMPRESSION: No active cardiopulmonary disease. Reviewed, Interpreted and Dictated by Albaro Harvey III, MD Transcribed by Aby Barr Authenticated and [facility]
--- NOTE | 2022-02-03 13:26 | ECG_ITS ---
APPROVED REPORT Exam: Resting ECG HR:87 bpm ECG Measurements Heart Rate 87 AXES HI 171 P 58 QRSd 86 QRS 88 QT 361 T 60 QTc 405 Conclusion SINUS RHYTHM NORMAL ECG UNCONFIRMED REPORT Electronically signed by : Trent Garcia MD 02/04/2022 20:17:30
[2022-02-03 14:18] LABS: Erythrocyte Sedimentation Rate 21 mm/hr (0-30)
[2022-02-03 14:19] LABS: Alanine Aminotransferase 22 U/L (12-78); Albumin Level 4.3 g/dl (3.5-5.0); Albumin/Globulin Ratio 1.3 (1.1-1.8); Alkaline Phosphatase 121 U/L (38-126); Aspartate Amino Transferase 30 U/L (14-36); Bilirubin,Total 0.1 mg/dl (0.2-1.3); Blood Urea Nitrogen 14 mg/dl (7-17); Calcium 8.9 mg/dl (8.4-10.2); Carbon Dioxide 26 mmol/L (22.0-30.0); Chloride 103 mmol/L (98-107); Estimated Glomerular Filt Rate 50 ml/min (>60); GFR (African American) 60 ML/MIN (>60); Globulin 3.2 g/dL (1.3-3.2); Glucose 104 mg/dl (74-100); Sodium 139 mmol/L (136-145); Total Protein,Serum 7.5 g/dl (6.3-8.2)
[2022-02-03 14:24] LABS: C-Reactive Protein 1.4 mg/L (0-4)
[2022-02-03 15:03] LABS: Basophils # 0.1 K/mm3 (0-0.2); Basophils % 1.4 % (0.1-2.0); Eosinophils # 0.2 K/mm3 (0.0-0.4); Eosinophils % 2.2 % (0.1-12.0); Hematocrit 31.7 % (37.0-47.0); Lymphocytes # 2.2 K/mm3 (0.7-4.5); Lymphocytes % 28.1 % (10-50); Mean Corpuscular HGB Conc 31.6 g/dL (31.8-35.4); Mean Corpuscular Hemoglobin 23.1 pg (27.0-31.2); Mean Platelet Volume 9.4 fl (7.4-10.4); Monocytes # 0.6 K/mm3 (0.1-1.0); Monocytes % 7.5 % (1.7-9.3); Neutrophils # 4.7 K/mm3 (1.8-7.8); Neutrophils % 60.8 % (37.0-80.0); Platelet Count 402 K/mm3 (142-424); Red Blood Count 4.34 M/mm3 (4.20-5.40); Red Cell Distribution Width 17.9 % (11.5-17.5); White Blood Count 7.7 K/mm3 (4.8-10.8)
== END ==
PROVIDERS: PCP Internal Medicine Adolescent Medicine; Visit Provider Orthopaedic Surgery
DX: Z01.818 Encounter for other preprocedural examination (principal); S82.202A Unspecified fracture of shaft of left tibia, initial encounter for closed fracture; S82.402A Unspecified fracture of shaft of left fibula, initial encounter for closed fracture
CPT/HCPCS: 36415; 71046; 80053; 85025; 85651; 86140; 93005

== ENCOUNTER → 2022-02-08 11:10 | Outpatient (CLI) | payer BC, SELFPAY | PROVIDERS: PCP Internal Medicine Adolescent Medicine; Visit Provider Orthopaedic Surgery | DX: Z01.812 Encounter for preprocedural laboratory examination (principal); Z20.822 Contact with and (suspected) exposure to COVID-19; S82.202A Unspecified fracture of shaft of left tibia, initial encounter for closed fracture; S82.402A Unspecified fracture of shaft of left fibula, initial encounter for closed fracture | CPT/HCPCS: C9803; U0003; U0005 ==

== ENCOUNTER 2022-02-10 06:11 | Day surgery (SDC) | payer BC, OTHER, SELFPAY ==
[2022-02-07 13:51] VITALS: BMI 25.7
[2022-02-10] VITALS (9 sets, daily range): BP systolic 116–165; BP diastolic 65–95; PULSE 93–105; RESP 12–18; TEMP 36.3–36.8; O2SAT 92–99
--- NOTE | 2022-02-10 | XR_ITS ---
FINAL REPORT CLINICAL HISTORY: hardware removel .8 fluoro time 6 screws removed FINDINGS: FLUORO TIME PROCEDURE: Fluoroscopy in the operating room for hardware removal. Fluoroscopy time was provided by the radiology department for the clinical service. Two films were obtained. Fluoroscopy exposure time: 0.8 minutes IMPRESSION: See above Reviewed, Interpreted and Dictated by Albaro Harvey III, MD Transcribed by Jory Haji Authenticated and [facility]
--- NOTE | 2022-02-10 07:26 | SUR.PREOP ---
0726- patient attempted to use Bedpan.
--- NOTE | 2022-02-10 08:43 | P.PN_ITS ---
[facility] Anesthesia Checklist - Structural Data Admitted From: Home Planned Operative Procedure/s: removal hardware lle Consent for Planned Operative Procedure(s) Verified: Yes - Additional verifications Anesthesia Reactions: Yes (N/V) Hx Blood Transfusions: No Blood Transfusion Reaction: No - Airway Assessment C-Spine Mobility Assessed: Yes TMJ Mobility Assessed: Yes Dentition: Good Dentition - Neurological Assessment Level of Consciousness: Awake, Alert, Appropriate - Anesthesia Plan Anesthesia Risk discussed: Yes Anesthesia Plan: Verified ASA Class: II Anesthesia Type: General [facility] History I have reviewed the patient's past medical history: Yes Medical History: Reports:: Cancer, Gastroesophageal Reflux Disease(GERD), Hypertension, Urinary Tract Infection Denies:: Diabetes Mellitus Type 1, Diabetes Mellitus Type 2, Internal Pacemaker, MRSA, Seizures *Have you ever received a pneumonia vaccine?: Yes *Have you received a flu vaccine this season?: Yes Other Medical History: Reports: Thyroid Disease. Denies: Blood Transfusion Reaction Anesthesia experience/problems:: none Laterality Cases: Left: Other Other Surgeries: Yes: No Previous Surgery, Colonoscopy, Hysterectomy-Total, Skin Cancer Excision, Thyroidectomy, Other. No: Pacemaker Amputation: No Fractures: Yes - *Social History Last grade of school completed: High school graduate Smoking Status: Never smoker Alcohol Intake: never Substance Use Type: denies use *Occupational Status:: other Housing: house Household Members: spouse *Travel in the last 8 weeks: None Family Hx:: Diabetes, Heart Attack, Hyperlipidemia, Hypertension, Thyroid Disorder
--- NOTE | 2022-02-10 11:41 | HMH.OPNOTE ---
Date of procedure: 02/10/22 Pre-op Diagnosis:: 1. Painful orthopedic hardware, left leg 2. Status post IM nailing tibia, left Post-op Diagnosis:: Same Procedure performed:: Removal of interlocking screws, left tibia Surgeon:: Deuce Slaughter MD Assistant Bookkeeper(s):: Gwen Mendoza PA-C RAILROAD SIGNAL TECHNICIAN:: Irvin Hidalgo Anesthesia: LMA Estimated blood loss (mL): 5 Clinical Note:: Patient is a 66-year-old female who underwent a closed tibial nailing and an open reduction internal fixation for the lateral malleolus fracture of her left leg about [address] Mariscal. The fractures have since healed but patient is having pain in relation to both the proximal and distal locking screws of the tibial nail. The distal tibial locking screws are placed from lateral to medial side, which is somewhat unusual. The tips of the distal locking screws are prominent over the medial aspect of the distal tibia and are very tender to palpate.? Her symptoms are worse if she hits on to something or while she is walking.? She also reports more severe pain in cold and wet weather.? She rates her pain an 8 out of 10 on the pain scale at its worse. No history of any fevers, chills or rigors.? No history of any erythema, swelling or redness.? No history of any distal tingling or numbness. She does not report any improvement in her symptoms with conservative management over a long time.? Clinically and radiologically the fractures have healed well.? Given these factors, removal of the proximal and distal tibial locking screws is clinically indicated and necessary. She is a non smoker. 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 Operative findings:: On examination of the left leg under anesthesia, the tips of the distal lateral to medial screws are prominent under the skin on the medial aspect. The head of the AP screw was prominent over the distal gallegos. The proximal screw heads were also palpable under the skin. Under fluoroscopy, the nail and screw fixation of the tibia was noted as seen on the preoperative x-rays.? The implants are well fixed, and no evidence of any implant related infection is noted.? All the locking screws were removed. Removal of the lateral to medial distal locking screw was difficult as they were very deep and the the distal fibula was somewhat interfering with access to the head of the distalmost screw. All the proximal locking screws under the distal AP screw were easily removed. The tibial shaft fracture is well healed as noted on the preoperative imaging. The distal fibula fracture is also well-healed. I did not make any attempts to remove the tibial nail or the distal fibular plate and screws. Operative note:: On the day of the surgery, patient and her were met in the preoperative area and positively identified. I have again reviewed the diagnosis, natural history and management options in detail including both nonsurgical and surgical.? Given the severity and chronicity of her symptoms, she wished to proceed with removal of proximal and distal tibial locking screws from the left leg. I have discussed the details of the procedure, risks, benefits and alternatives. The complications discussed include but are not limited to infection, bleeding, injury to nerves and blood vessels, injury to tendons, skin breakdown, non-healing wound, stiffness, DVT and PE, CRPS (complex regional pain syndrome- pain, sensory and temperature changes, swelling and stiffness), incomplete relief of pain, incomplete return of function, and likely need for further surgery in future and also the risks of anesthesia including heart attack, stroke, and even . I have also explained how additional surgery may be required if there are any complications.? We've also discussed the option of nonsurgical treatment. The patient understands and has asked appropriate questions. All her questions were answered, and she verbalized
--- NOTE | 2022-02-10 11:55 | HMH.ANESI ---
[facility] Anesthesia Record Part I Intake, IV Amount: 1,500 Estimated blood loss (mL): 0 Urine output (mL): 0 Blood Pressure: 116/70 SaO2: 95 Pulse Rate: 94 Respiratory Rate: 12 Temperature: 97.4 F Patient is:: Awake, Stable Stable to PACU at:: 10:20
--- NOTE | 2022-02-13 08:26 | HMH.ANESII ---
[facility] Anesthesia Record Part II Discharge Time: 10:50 Destination: [facility] PACU nurse assessment reviewed?: Yes Patient Condition:: Good Anesthesia Complications:: None Swallowing reflex intact?: Yes Cyanosis?: No Blood Pressure: 154/84 Pulse Rate: 103 Temperature: 97.8 F Mental Status: Alert & Oriented Pain level:: 0 Nausea and/or vomitting:: None Intake, IV Amount: 1,500
[2022-02-13 08:27] VITALS: BP 154/84; PULSE 103; TEMP 36.6
== END 2022-02-10 11:57 | disposition home or self-care (01) ==
LOC: OR 06:13
PROVIDERS: PCP Internal Medicine Adolescent Medicine; Visit Provider Orthopaedic Surgery
PROC: (CPT 20680; principal; 2022-02-10 07:30)
DX: T84.84XA Pain due to internal orthopedic prosthetic devices, implants and grafts, initial encounter (principal); G89.28 Other chronic postprocedural pain; Y79.2 Prosthetic and other implants, materials and accessory orthopedic devices associated with adverse incidents; I10 Essential (primary) hypertension; Z79.899 Other long term (current) drug therapy
CPT/HCPCS: 20680; 73590; 96374; J2405

== ENCOUNTER → 2022-02-21 13:40 | Outpatient (CLI) | payer BC, SELFPAY ==
--- NOTE | 2022-02-21 13:43 | XR_ITS ---
FINAL REPORT CLINICAL HISTORY: hardware removal FINDINGS: LEFT TIBIA FIBULA Two views were obtained. There is a chronic fracture of the tibia/fibula. There are postoperative changes of the tibial/fibula with an intramedullary whit in the tibia. Screw plate and multiple screws are seen in the distal fibula. There are mild degenerative changes of the knee and ankle. IMPRESSION: Degenerative and postoperative change as detailed above. Reviewed, Interpreted and Dictated by Albaro Harvey III, MD Transcribed by Mar Cabrales Authenticated and [facility]
== END ==
PROVIDERS: PCP Internal Medicine Adolescent Medicine; Visit Provider Orthopaedic Surgery
DX: S82.202A Unspecified fracture of shaft of left tibia, initial encounter for closed fracture (principal); S82.402A Unspecified fracture of shaft of left fibula, initial encounter for closed fracture
CPT/HCPCS: 73590

== ENCOUNTER → 2022-02-22 11:53 | Outpatient (CLI) | payer BC, SELFPAY | PROVIDERS: PCP Internal Medicine Adolescent Medicine; Visit Provider Internal Medicine Gastroenterology | DX: Z01.812 Encounter for preprocedural laboratory examination (principal); Z20.822 Contact with and (suspected) exposure to COVID-19 | CPT/HCPCS: C9803; U0003; U0005 ==

== ENCOUNTER → 2022-02-28 16:25 | Outpatient (CLI) | payer BC, SELFPAY | PROVIDERS: PCP Internal Medicine Adolescent Medicine; Visit Provider Nurse Practitioner Family | DX: R19.4 Change in bowel habit (principal); R93.3 Abnormal findings on diagnostic imaging of other parts of digestive tract; R11.2 Nausea with vomiting, unspecified ==

== ENCOUNTER → 2022-03-03 08:33 | Outpatient (CLI) | payer BC, SELFPAY ==
[2022-03-09 15:32] LABS: Pancreatic Elastase, Fecal 207 (>200)
== END ==
PROVIDERS: PCP Internal Medicine Adolescent Medicine; Visit Provider Internal Medicine Gastroenterology
DX: R19.4 Change in bowel habit (principal); R93.3 Abnormal findings on diagnostic imaging of other parts of digestive tract; R11.2 Nausea with vomiting, unspecified
CPT/HCPCS: 82656

== ENCOUNTER 2022-06-01 18:05 | Emergency (ER) | payer BC, SELFPAY ==
[2022-06-01 19:05] VITALS: BP 163/76; PULSE 105; RESP 20; TEMP 36.4; O2SAT 100; BMI 26.2
--- NOTE | 2022-06-01 19:23 | EXP.UTC ---
Discharge Plan Disposition Patient Disposition: Home, Self-Care Condition: Good Prescriptions Prescriptions: New polymyxin B sulf-trimethoprim [Polytrim] 10,000 unit- 1 mg/mL drops 2 drp ophthalmic (eye) Q6H 7 Days Qty: 10 0RF Rx Instructions: 2 drops in left eye while awake; do not exceed 6 doses in 24 hours No Action lisinopril 5 mg tablet 5 mg PO DAILY 30 Days Qty: 30 omeprazole 20 mg capsule,delayed release(DR/EC) 20 mg PO DAILY 90 Days Qty: 90 levothyroxine 75 mcg tablet 75 mcg PO DAILY Qty: 90 4RF cephalexin 500 mg capsule 1,000 mg PO BID 7 Days Qty: 28 0RF Paxlovid (EUA) 300 mg (150 mg x 2)-100 mg tablet See Rx Instructions PO .COMPLEX Qty: 30 0RF Rx Instructions: take TWO 150 mg tablets of nirmatrelvir with ONE 100 mg tablet of ritonavir twice daily for 5 days PO ergocalciferol (vitamin D2) 50,000 UNIT capsule 50,000 unit PO WEEKLY B complex-vitamin C-folic acid 400 MCG tablet 400 mcg PO DAILY polyethylene glycol 3350 119 GM powder 17 gm PO DAILY fexofenadine-pseudoephedrine 1 EACH tablet extended release 12 hr 1 each PO DAILY cranberry 400 MG capsule 400 mg PO DAILY Referrals Follow up/Referrals: Trent Garcia MD [Primary Care Provider] - See instructions Activity Restrictions/Add. Instructions Additional Instructions/Restrictions: Wash hands before and after applying drops to eye Use drops as prescribed Follow up with Eye Doctor if no improvement or any worsening of symptoms Clean drainage and matting from eye with warm water and baby shampoo Clinical Impressions Clinical Impression: Conjunctivitis Qualifiers: Conjunctivitis type: unspecified Laterality: left Qualified Code(s): H10.9 - Unspecified conjunctivitis Instructions Patient Instructions: Conjunctivitis, Polymyxin B and Trimethoprim Ophthalmic Discharge ED Provider: Lorraine Garrett [facility] General Stated complaint: lEFT EYE RED Mode of Arrival: Ambulatory Source of Information: Patient Limitations: No Limitations Time Seen by Provider: 06/01/22 19:23 Description of Symptoms (Recalled from Triage Doc. by RN): PATIENT C/O REDNESS AND DRAINAGE TO LEFT EYE THAT STARTED TODAY HEENT Symptoms (Recalled from RN notes): Yes Resp Symptoms (Recalled from RN notes): No Skin Symptoms (Recalled from RN notes): No MS Symptoms (Recalled from RN notes): No Functional Status (Recalled from RN notes): WNL History of Present Illness Provider Complaint: Patient states that she woke up this morning having drainage and redness to left eye States that as the day went on eye continued to get worse and tonight it was matted and had thick sticky like drainage from eye Related Data Home Medications Medication Instructions Recorded Confirmed lisinopril 5 mg tablet 5 mg PO DAILY Hypertension 30 days 06/10/18 03/22/22 #30 tabs omeprazole 20 mg capsule,delayed 20 mg PO DAILY GERD 90 days #90 06/10/18 03/22/22 release caps ergocalciferol (vitamin D2) 1,250 50,000 unit PO WEEKLY Supplement 10/12/20 03/22/22 mcg (50,000 unit) capsule vitamin B complex-vitamin C-folic 400 mcg PO DAILY Supplement 10/12/20 03/22/22 acid 400 mcg tablet fexofenadine 60 mg-pseudoephedrine 1 each PO DAILY ALLERGIES 02/07/22 03/22/22 ER 120 mg tablet,ext.release,12 hr polyethylene glycol 3350 17 17 gm PO DAILY CONSTIPATION 02/07/22 03/22/22 gram/dose oral powder cranberry 400 mg capsule 400 mg PO DAILY UTI prevention 02/10/22 03/22/22 Previous Rx's Medication Instructions Recorded levothyroxine 75 mcg tablet 75 mcg PO DAILY thyroid #90 tabs 06/06/21 cephalexin 500 mg capsule 1,000 mg PO BID 7 days #28 caps 03/08/22 nirmatrelvir 300 mg (150 mg See Rx Instructions PO .COMPLEX 03/15/22 x2)-ritonavir 100 mg tablet,dose #30 tabs pack(EUA) (Paxlovid) polymyxin B sulfate 10,000 2 drp ophthalmic (eye) Q6H 7 days 06/01/22 unit-trimethoprim 1 mg/mL eye #10 mL drops (Polytrim) Allergie
[2022-06-01 19:32] VITALS: BP 163/76; PULSE 105; RESP 20; TEMP 36.4; O2SAT 100
== END 2022-06-01 19:34 | disposition home or self-care (01) ==
PROVIDERS: Emergency Provider Nurse Practitioner; PCP Internal Medicine Adolescent Medicine
DX: H10.9 Unspecified conjunctivitis (principal)
CPT/HCPCS: 99212; G0463

== ENCOUNTER → 2022-07-04 11:12 | Outpatient (CLI) | payer BC, SELFPAY ==
--- NOTE | 2022-07-04 11:14 | MM_ITS ---
PROCEDURE INFORMATION: Exam: MG Bilateral Screening 3D Mammography Exam date and time: 07/04/2022 11:16 AM Age: 66 years old Clinical indication: Screening examination. Her aunt had breast cancer. TECHNIQUE: Imaging protocol: Bilateral Screening tomosynthesis and 2D mammography including computer-aided detection (CAD) when performed. COMPARISON: 1. MG MM DIG SCREENING MAMM BI W/CAD 03/29/2020 10:08 AM 2. MG MM DIG SCREENING MAMM BI W/CAD 03/27/2019 4:58 PM 3. MG DMBAV DIG MAMM-BILATERAL ADD VIEWS 10/03/2011 1:18 PM 4. MG MOBILE DIGITAL SCREEN BILAT* 09/07/2011 1:54 PM FINDINGS: MAMMOGRAPHY: Breast composition: The breasts are heterogeneously dense, which may obscure small masses. Mass: No suspicious mass. Architectural distortion: None. Calcifications: No suspicious calcifications. Asymmetric density: None. Skin thickening: None. Axillary adenopathy: None. IMPRESSION: No mammographic evidence of malignancy. Annual screening is recommended unless otherwise clinically indicated. ASSESSMENT: BI-RADS Category 1: Negative
== END ==
PROVIDERS: PCP Internal Medicine Adolescent Medicine; Visit Provider Internal Medicine Adolescent Medicine
DX: Z12.31 Encounter for screening mammogram for malignant neoplasm of breast (principal)
CPT/HCPCS: 77063; 77067

== ENCOUNTER 2022-07-07 08:23 | Outpatient (CLI) | payer BC, SELFPAY ==
[2022-07-07] VITALS (21 sets, daily range): BP systolic 143–170; BP diastolic 56–87; PULSE 85–93; RESP 14–16; TEMP 36.3–36.6; O2SAT 98–100; BMI 25.7
[2022-07-07 08:56] LABS: Basophils # 0.1 K/mm3 (0-0.2); Basophils % 1.1 % (0.1-2.0); Eosinophils # 0.1 K/mm3 (0.0-0.4); Eosinophils % 1.5 % (0.1-12.0); Hematocrit 23.5 % (37.0-47.0); Lymphocytes # 2.1 K/mm3 (0.7-4.5); Mean Corpuscular HGB Conc 29.4 g/dL (31.8-35.4); Mean Corpuscular Hemoglobin 17.9 pg (27.0-31.2); Mean Corpuscular Volume 60.8 fl (81-99); Mean Platelet Volume 8.4 fl (7.4-10.4); Monocytes # 0.4 K/mm3 (0.1-1.0); Monocytes % 6.7 % (1.7-9.3); Neutrophils # 3.7 K/mm3 (1.8-7.8); Neutrophils % 57.7 % (37.0-80.0); Platelet Count 516 K/mm3 (142-424); Red Blood Count 3.87 M/mm3 (4.20-5.40); Red Cell Distribution Width 19.6 % (11.5-17.5); White Blood Count 6.4 K/mm3 (4.8-10.8)
[2022-07-07 09:04] LABS: Hemoglobin 6.9 g/dL (12.2-16.2)
[2022-07-07 09:23] LABS: Total Iron Binding Capacity 539 ug/dL (265-497)
[2022-07-07 09:26] LABS: Iron < 10 ug/dL (37-170)
[2022-07-07 09:52] LABS: Ferritin 4.53 ng/ml (11.1-264)
[2022-07-07 10:09] LABS: Vitamin B12 535 pg/mL (239-931)
[2022-07-07 10:20] LABS: Folate > 20.00 ng/mL
== END 2022-07-07 15:57 | disposition home or self-care (01) ==
LOC: INF 08:23
PROVIDERS: PCP Internal Medicine Adolescent Medicine; Visit Provider Nurse Practitioner Family
DX: D50.9 Iron deficiency anemia, unspecified (principal)
CPT/HCPCS: 36430; 82607; 82728; 82746; 83540; 83550; 85025; 85044; 86850; P9016

== ENCOUNTER → 2022-07-08 10:14 | Outpatient (CLI) | payer BC, SELFPAY ==
[2022-07-08 14:11] LABS: Occult Blood,Stool Positive (Negative)
== END ==
PROVIDERS: PCP Internal Medicine Adolescent Medicine; Referring Provider Nurse Practitioner Family; Visit Provider Internal Medicine Adolescent Medicine
DX: D50.9 Iron deficiency anemia, unspecified (principal)
CPT/HCPCS: 82272; G0328

== ENCOUNTER 2022-09-01 10:19 | Outpatient (CLI) | payer BC, SELFPAY ==
[2022-09-01 10:50] VITALS: BP 150/76; PULSE 95; RESP 18; O2SAT 99
[2022-09-01 11:36] VITALS: BP 147/85; PULSE 89; RESP 18
== END 2022-09-01 11:36 | disposition home or self-care (01) ==
LOC: INF 10:20
PROVIDERS: PCP Internal Medicine Adolescent Medicine; Visit Provider Internal Medicine Gastroenterology
DX: D50.9 Iron deficiency anemia, unspecified (principal)
CPT/HCPCS: 96374; Q0138

== ENCOUNTER 2022-09-04 11:50 | Outpatient (CLI) | payer BC, SELFPAY ==
[2022-09-04 12:05] VITALS: BP 138/45; PULSE 96; RESP 18; O2SAT 99
[2022-09-04 12:30] VITALS: BP 156/70; PULSE 91; RESP 18
== END 2022-09-04 12:30 | disposition home or self-care (01) ==
LOC: INF 11:50
PROVIDERS: PCP Internal Medicine Adolescent Medicine; Visit Provider Internal Medicine Gastroenterology
DX: D50.9 Iron deficiency anemia, unspecified (principal)
CPT/HCPCS: 96374; Q0138

== ENCOUNTER → 2022-11-23 08:29 | Outpatient (CLI) | payer BC, SELFPAY ==
[2022-11-23 09:40] LABS: Basophils # 0.1 K/mm3 (0-0.2); Basophils % 2.2 % (0.1-2.0); Eosinophils # 0.1 K/mm3 (0.0-0.4); Eosinophils % 2.3 % (0.1-12.0); Hematocrit 44.9 % (37.0-47.0); Hemoglobin 13.7 g/dL (12.2-16.2); Lymphocytes # 2.3 K/mm3 (0.7-4.5); Lymphocytes % 37.7 % (10-50); Mean Corpuscular HGB Conc 30.6 g/dL (31.8-35.4); Mean Corpuscular Hemoglobin 25.9 pg (27.0-31.2); Mean Corpuscular Volume 84.8 fl (81-99); Mean Platelet Volume 8.5 fl (7.4-10.4); Monocytes # 0.4 K/mm3 (0.1-1.0); Monocytes % 6.7 % (1.7-9.3); Neutrophils # 3.1 K/mm3 (1.8-7.8); Neutrophils % 51.1 % (37.0-80.0); Platelet Count 373 K/mm3 (142-424); Red Blood Count 5.29 M/mm3 (4.20-5.40); Red Cell Distribution Width 21.3 % (11.5-17.5); White Blood Count 6.1 K/mm3 (4.8-10.8)
[2022-11-23 10:17] LABS: Iron 87 ug/dL (37-170)
[2022-11-23 10:26] LABS: Total Iron Binding Capacity 316 ug/dL (265-497)
[2022-11-23 10:52] LABS: Ferritin 21.6 ng/ml (11.1-264)
== END ==
PROVIDERS: PCP Nurse Practitioner Family; Visit Provider Internal Medicine Gastroenterology
DX: D64.9 Anemia, unspecified (principal)
CPT/HCPCS: 36415; 82728; 83540; 83550; 85025

== ENCOUNTER → 2022-12-12 11:52 | Outpatient (CLI) | payer BC, SELFPAY | PROVIDERS: PCP Nurse Practitioner Family; Visit Provider Internal Medicine Gastroenterology | DX: I10 Essential (primary) hypertension (principal) ==

== ENCOUNTER → 2022-12-14 18:30 | Outpatient (CLI) | payer BC, SELFPAY ==
[2022-12-18 11:53] LABS: Occult Blood,Stool Negative (Negative)
== END ==
PROVIDERS: Visit Provider Internal Medicine Gastroenterology
DX: D64.9 Anemia, unspecified (principal)
CPT/HCPCS: 82272; G0328

== ENCOUNTER → 2022-12-15 17:30 | Outpatient (CLI) | payer BC, SELFPAY ==
[2022-12-18 11:53] LABS: Occult Blood,Stool Positive (Negative)
== END ==
PROVIDERS: Visit Provider Internal Medicine Gastroenterology
DX: D64.9 Anemia, unspecified (principal)
CPT/HCPCS: 82272; G0328

== ENCOUNTER → 2022-12-16 22:50 | Outpatient (CLI) | payer BC, SELFPAY ==
[2022-12-18 11:53] LABS: Occult Blood,Stool Positive (Negative)
== END ==
PROVIDERS: Visit Provider Internal Medicine Gastroenterology
DX: D64.9 Anemia, unspecified (principal)
CPT/HCPCS: 82272; G0328

== ENCOUNTER → 2022-12-17 13:34 | Outpatient (CLI) | payer BC, SELFPAY | PROVIDERS: Visit Provider Internal Medicine Gastroenterology | DX: D64.9 Anemia, unspecified (principal) | CPT/HCPCS: 82272; G0328 ==

== ENCOUNTER → 2023-03-07 10:19 | Outpatient (CLI) | payer BC, SELFPAY ==
[2023-03-07 10:50] LABS: Basophils # 0.1 K/mm3 (0-0.2); Basophils % 0.8 % (0.1-2.0); Eosinophils # 0.1 K/mm3 (0.0-0.4); Eosinophils % 1.2 % (0.1-12.0); Hematocrit 42.3 % (37.0-47.0); Hemoglobin 13.5 g/dL (12.2-16.2); Lymphocytes # 2.2 K/mm3 (0.7-4.5); Lymphocytes % 34.5 % (10-50); Mean Corpuscular HGB Conc 31.9 g/dL (31.8-35.4); Mean Corpuscular Hemoglobin 26.9 pg (27.0-31.2); Mean Corpuscular Volume 84.2 fl (81-99); Mean Platelet Volume 8.7 fl (7.4-10.4); Monocytes # 0.4 K/mm3 (0.1-1.0); Monocytes % 6.4 % (1.7-9.3); Neutrophils # 3.7 K/mm3 (1.8-7.8); Platelet Count 347 K/mm3 (142-424); Red Blood Count 5.03 M/mm3 (4.20-5.40); Red Cell Distribution Width 13.9 % (11.5-17.5); White Blood Count 6.4 K/mm3 (4.8-10.8)
[2023-03-07 11:30] LABS: Iron 92 ug/dL (37-170)
[2023-03-07 11:39] LABS: Total Iron Binding Capacity 422 ug/dL (265-497)
[2023-03-07 12:06] LABS: Ferritin 11.5 ng/ml (11.1-264)
[2023-03-07 13:18] LABS: Vitamin B12 588 pg/mL (239-931)
== END ==
LOC: LAB 10:20
PROVIDERS: Internal Medicine Gastroenterology; PCP Nurse Practitioner Family; Visit Provider Nurse Practitioner Family
DX: D50.9 Iron deficiency anemia, unspecified (principal)
CPT/HCPCS: 36415; 82607; 82728; 83540; 83550; 85025

== ENCOUNTER 2023-10-09 11:13 | Outpatient (CLI) | payer BC, SELFPAY ==
--- NOTE | 2023-10-09 11:25 | MM_ITS ---
PROCEDURE INFORMATION: Exam: MG Bilateral Screening 3D Mammography Exam date and time: 10/09/2023 11:21 AM Age: 68 years old Clinical indication: Screening examination TECHNIQUE: Imaging protocol: Bilateral Screening tomosynthesis and 2D mammography including computer-aided detection (CAD) when performed. COMPARISON: 1. MG MM DIG SCREENING MAMM BI W/CAD 07/04/2022 11:16 AM 2. MG JEAN-CLAUDE DIGITAL SCREEN W OR WO CAD BILATERAL 05/18/2021 10:28 AM FINDINGS: MAMMOGRAPHY: Breast composition: The breasts are heterogeneously dense, which may obscure small masses. Mass: None. Architectural distortion: None. Calcifications: No suspicious calcifications. Asymmetric density: None. Skin thickening: None. Axillary adenopathy: None. IMPRESSION: No mammographic evidence of malignancy. Annual screening is recommended unless otherwise clinically indicated. ASSESSMENT: BI-RADS Category 1: Negative
== END 2023-10-09 23:59 ==
LOC: RAD 11:14
PROVIDERS: PCP Nurse Practitioner Family; Visit Provider Internal Medicine Adolescent Medicine
DX: Z12.31 Encounter for screening mammogram for malignant neoplasm of breast (principal)
CPT/HCPCS: 77063; 77067

== ENCOUNTER 2023-11-04 15:19 | Emergency (ER) | payer BC, SELFPAY ==
[2023-11-04 16:20] VITALS: BP 153/81; PULSE 64; RESP 18; TEMP 36.6; O2SAT 97; BMI 27.4
--- NOTE | 2023-11-04 16:25 | ED_ITS ---
Discharge Plan Disposition Patient Disposition: Home, Self-Care Condition: Good Prescriptions Prescriptions: New azithromycin [Zithromax] 250 mg tablet 250 mg PO UD DOSE PK Qty: 6 0RF Rx Instructions: Take two (2) tablets today, then one (1) tablet days #2 thru #5 benzonatate 100 mg capsule 100 mg PO TIDP PRN (Reason: Cough) Qty: 30 0RF methylprednisolone 4 mg Tablets,Dose Pack 4 mg PO DIRECTED 6 Days Qty: 21 0RF Rx Instructions: Take 1 pack as directed for 6 days fluconazole 150 mg tablet 150 mg PO ONCE Qty: 1 3RF No Action lisinopril 5 mg tablet 5 mg PO DAILY 30 Days Qty: 30 levothyroxine 75 mcg tablet 75 mcg PO DAILY Qty: 90 4RF azelastine 137 mcg (0.1 %) aerosol,spray 1 spray intranasal BID Qty: 30 3RF Rx Instructions: administer into each nostril cefdinir 300 mg capsule 300 mg PO BID 7 Days Qty: 14 0RF ergocalciferol (vitamin D2) 50,000 UNIT capsule 50,000 unit PO WEEKLY B complex-vitamin C-folic acid 400 MCG tablet 400 mcg PO DAILY polyethylene glycol 3350 119 GM powder 17 gm PO DAILY fexofenadine-pseudoephedrine 1 EACH tablet extended release 12 hr 1 each PO DAILY cranberry 400 MG capsule 400 mg PO DAILY omeprazole 40 mg Capsule,Delayed Release(Dr/Ec) 40 mg PO DAILY Creon 36,000-114,000- 180,000 unit Capsule,Delayed Release(Dr/Ec) 1 cap PO TIDWMEAL miscellaneous medical supply Misc 1 ea miscellaneous QID Rx Instructions: Domperidone 10mg 1 tab with each meal and at bedtime Referrals Follow up/Referrals: Trent Garcia MD [Primary Care Provider] - See instructions Activity Restrictions/Add. Instructions Additional Instructions/Restrictions: Drink plenty of fluids. Take tylenol or ibuprofen for pain or fever. Take the medications as directed. Follow up with your regular doctor. GO TO THE ER FOR ANY WORSENING SYMPTOMS Don't start the oral steroids until tomorrow since you had the steroid shot here today. Clinical Impressions Clinical Impression: Sinusitis Instructions Patient Instructions: Sinusitis, DI for Sinusitis Discharge ED Provider: Jamaal Dias [facility] HPI General Stated complaint: poss sinus inf Time Seen by Provider: 11/04/23 16:24 History of Present Illness Provider Complaint: She states that for the past 5 days she has had worsening sinus congestion, sinus pressure, and ear pain. Related Data Home Medications Medication Instructions Recorded Confirmed lisinopril 5 mg tablet 5 mg PO DAILY Hypertension 30 days 06/10/18 11/21/22 #30 tabs ergocalciferol (vitamin D2) 1,250 50,000 unit PO WEEKLY Supplement 10/12/20 11/21/22 mcg (50,000 unit) capsule vitamin B complex-vitamin C-folic 400 mcg PO DAILY Supplement 10/12/20 11/21/22 acid 400 mcg tablet fexofenadine 60 mg-pseudoephedrine 1 each PO DAILY ALLERGIES 02/07/22 11/21/22 ER 120 mg tablet,ext.release,12 hr polyethylene glycol 3350 17 17 gm PO DAILY CONSTIPATION 02/07/22 11/21/22 gram/dose oral powder cranberry 400 mg capsule 400 mg PO DAILY UTI prevention 02/10/22 11/21/22 [id number] 1 cap PO TIDWMEAL digestion 07/07/22 11/21/22 36,000-114,000-180,000 unit capsule,delay rel (Creon) miscellaneous medical supply 1 ea miscellaneous QID Nausea & 07/07/22 11/21/22 vomiting omeprazole 40 mg capsule,delayed 40 mg PO DAILY GERD 07/07/22 11/21/22 release Previous Rx's Medication Instructions Recorded levothyroxine 75 mcg tablet 75 mcg PO DAILY thyroid #90 tabs 06/06/21 azelastine 137 mcg (0.1 %) nasal 1 spray intranasal BID #30 mL 11/21/22 spray aerosol cefdinir 300 mg capsule 300 mg PO BID 7 days #14 caps 11/21/22 azithromycin 250 mg tablet 250 mg PO UD DOSE PK #6 tabs 11/04/23 (Zithromax) benzonatate 100 mg capsule 100 mg PO TIDP PRN Cough #30 caps 11/04/23 fluconazole 150 mg tablet 150 mg PO ONCE 1 dose #1 tab 11/04/23 methylprednisolone 4 mg tablets in 4 mg PO DIRECTED 6 days #21 tabs 11/04/23 a dose pack Allergies Allergy/AdvReac Type Severity Reaction Status Date / Time Sulfa (Sulfonamide Allergy Intermediate I-HIVES/ITC Verified 11/04/23 16:44 Antibiotics) YUE/JOCELYNE TSANG [facility] Disclaimer: The information contained in this section may have been updated after the patient was seen, as this information can be updated by other users. Medical History Anemia Closed left fibular fracture Closed left tibial fracture Foreign body of ear, right GERD (gastroesophageal reflux disease) History of ovarian cancer HTN (hypertension) Hx of Graves' disease Hx: UTI (urinary tract infection) Left wrist fracture Surgical History History of open reduction and internal fixation (ORIF) procedure History of removal of retained hardware History of thyroidectomy Hx of total hysterectomy Family History Other Cancer Diabetes Heart attack Hypertension Stroke Social History Smoking Status: Never smoker second hand exposure: No alcohol intake: never substance use type: denies use current occupational status: other Travel in the last 8 weeks: None household members: spouse housing: house marital status: current occupation: [employer] current occupational exposures/hazards: No caffeine: Yes ROS Obtained: Yes All systems reviewed & no additional complaints except as documented Constitutional Constitutional: Reports poor appetite Eyes Eyes: Reports system reviewed and no additional complaints, except as documented ENT Ears, Nose, Mouth, and Throat: Reports as per HPI Cardiovascular Cardiovascular: Reports system reviewed and no additional complaints, except as documented and Denies chest pain Respiratory Respiratory: Denies shortness of breath, Denies chest congestion, Reports cough, Denies stridor and Denies wheezing Gastrointestinal Gastrointestingal: Reports system reviewed and no additional complaints, except as documented; Denies abdominal pain, diarrhea or vomiting Musculoskeletal Musculoskeletal: Reports system reviewed and no additional complaints, except as documented and Denies arthralgias Integumentary/Breasts Skin/Breast: Reports system reviewed and no additional complaints, except as documented and Denies rash Neurologic Neurologic: Denies paresthesias Allergic/Immunologic Allergic/Immunologic: Denies wheezing Physical Exam General General appearance: alert and in no apparent distress Eye Eye exam: Present normal appearance, PERRL and EOMI ENT ENT exam: Present mucous membranes moist and normal external ear exam Expanded ENT Exam External ear exam: Present normal external inspection TM/Canal exam: Bilateral TM: erythema and bulging Nose exam: Absent sinus tenderness Nasal speculum exam: Bilateral: normal Mouth exam: Present normal external inspection; Absent drooling Teeth exam: Present normal inspection Throat exam: Present tonsillar erythema and tonsillomegaly Neck Neck exam: Present normal inspection, full ROM and trachea midline; Absent tenderness, lymphadenopathy or thyromegaly Chest Chest inspection: Present normal inspection and symmetric chest wall rise; Absent tenderness or rash Respiratory Respiratory exam: Present normal lung sounds bilaterally; Absent respiratory distress, wheezes, stridor or accessory muscle use Cardiovascular Cardiovascular exam: Present regular rate, normal rhythm and normal heart sounds Abdominal Exam Abdominal exam: Present soft; Absent distention, tenderness, guarding, rebound or rigidity Extremities Exam Extremities exam: Present normal inspection, full ROM and normal capillary refill; Absent tenderness or calf tenderness Back Exam Back exam: Present normal inspection and full ROM; Absent tenderness Neurological Exam Neurological exam: Present alert and oriented X3 Psychiatric Psychiatric exam: Present normal affect and normal mood Skin Skin exam: Present warm, dry, intact and normal color Lymphatic Lymphatic Findings: no adenopathy Medical Decision Making Medical Records Medical records reviewed: No I reviewed the patient's medical records. Romeo Inquiry Pt receiving controlled substance: No
[2023-11-04] MEDS: DEXAMETHASONE 4MG/ML 1ML VIAL 8 MG IM (16:45)
[2023-11-04 17:04] VITALS: BP 153/81; PULSE 64; RESP 18; TEMP 36.6; O2SAT 97
== END 2023-11-04 17:04 | disposition home or self-care (01) ==
PROVIDERS: Emergency Provider Nurse Practitioner Family; PCP Internal Medicine Adolescent Medicine
DX: J01.90 Acute sinusitis, unspecified (principal); H92.09 Otalgia, unspecified ear; R09.81 Nasal congestion; K21.9 Gastro-esophageal reflux disease without esophagitis; I10 Essential (primary) hypertension; E05.00 Thyrotoxicosis with diffuse goiter without thyrotoxic crisis or storm; Z85.43 Personal history of malignant neoplasm of ovary
CPT/HCPCS: 96372; 99212; 99214; G0463

== ENCOUNTER 2023-12-08 08:11 | Outpatient (CLI) | payer BC, SELFPAY ==
[2023-12-08 09:17] LABS: Basophils # 0.2 K/mm3 (0-0.2); Basophils % 1.9 % (0.1-2.0); Eosinophils # 0.2 K/mm3 (0.0-0.4); Eosinophils % 2.8 % (0.1-12.0); Hematocrit 36.6 % (37.0-47.0); Hemoglobin 11.3 g/dL (12.2-16.2); Lymphocytes # 2.2 K/mm3 (0.7-4.5); Lymphocytes % 28.4 % (10-50); Mean Corpuscular HGB Conc 30.9 g/dL (31.8-35.4); Mean Corpuscular Volume 80.9 fl (81-99); Mean Platelet Volume 8.7 fl (7.4-10.4); Monocytes # 0.6 K/mm3 (0.1-1.0); Monocytes % 6.9 % (1.7-9.3); Neutrophils # 4.7 K/mm3 (1.8-7.8); Platelet Count 397 K/mm3 (142-424); Red Blood Count 4.52 M/mm3 (4.20-5.40); Red Cell Distribution Width 16.4 % (11.5-17.5); White Blood Count 7.9 K/mm3 (4.8-10.8)
[2023-12-08 10:07] LABS: Alanine Aminotransferase 18 U/L (12-78); Albumin Level 4.1 g/dl (3.5-5.0); Albumin/Globulin Ratio 1.5 (1.1-1.8); Alkaline Phosphatase 131 U/L (38-126); Anion Gap 11.3 mEq/L (5-15); Aspartate Amino Transferase 24 U/L (14-36); Bilirubin,Total 0.5 mg/dl (0.2-1.3); Blood Urea Nitrogen 10 mg/dl (7-17); Calcium 8.9 mg/dl (8.4-10.2); Carbon Dioxide 25 mmol/L (22.0-30.0); Chloride 109 mmol/L (98-107); Chol/HDL Ratio 3.3 (1-3.5); Cholesterol 231 mg/dl (140-200); Estimated Glomerular Filt Rate 55 ml/min (>60); GFR (African American) 67 ML/MIN (>60); Globulin 2.8 g/dL (1.3-3.2); Glucose 98 mg/dl (74-100); HDL Cholesterol 71 mg/dl (40-60); Potassium 4.3 mmoL/L (3.5-5.1); Sodium 141 mmol/L (136-145); Total Protein,Serum 6.9 g/dl (6.3-8.2); Triglycerides 68 mg/dl (30-150); VLDL Cholesterol 14 mg/dL (0-40)
[2023-12-08 10:37] LABS: Thyroid Stimulating Hormone 3.93 uIU/mL (0.465-4.68)
[2023-12-08 10:56] LABS: Vitamin B12 591 pg/mL (239-931)
[2023-12-08 11:02] LABS: Iron 47 ug/dL (37-170)
[2023-12-08 11:14] LABS: Total Iron Binding Capacity 431 ug/dL (265-497)
== END 2023-12-08 23:59 | disposition home or self-care (01) ==
LOC: LAB 08:12
PROVIDERS: PCP Internal Medicine Adolescent Medicine; Visit Provider Nurse Practitioner Family
DX: E53.8 Deficiency of other specified B group vitamins (principal); I10 Essential (primary) hypertension; E03.9 Hypothyroidism, unspecified; Z68.26 Body mass index [BMI] 26.0-26.9, adult; Z86.2 Personal history of diseases of the blood and blood-forming organs and certain disorders involving the immune mechanism
CPT/HCPCS: 36415; 80053; 80061; 82607; 83540; 83550; 84439; 84443; 85025

== ENCOUNTER 2024-02-01 08:53 | Outpatient (CLI) | payer BC, MEDICARE, SELFPAY ==
--- NOTE | 2024-02-01 08:58 | XR_ITS ---
FINAL REPORT TECHNIQUE: Bone mineral density was calculated of the lumbar spine and hip. CLINICAL HISTORY: SCREENING COMPARISON: None FINDINGS: Using L1-4, the bone mineral density of the spine is 0.914 g/cm2, corresponding to T-score of -1.2. Using the left hip, the bone mineral density of the femoral neck is 0.656 g/cm2, corresponding to a T-score of -1.7. NOTE: T-score: Standard deviation compared with peak bone mass of young adult mean. *Following the recommendations of the International Society of Bone densitometry, classification of hip BMD is based on the lower of two T-scores; total hip or femoral neck. IMPRESSION: Diminished bone mineral density of the lumbar spine and left hip consistent with osteopenia. Reviewed, Interpreted and Dictated by Albaro Harvey III, MD Transcribed by Chloe Cai Authenticated and [facility]
== END 2024-02-01 23:59 | disposition home or self-care (01) ==
LOC: RAD 08:54
PROVIDERS: PCP Nurse Practitioner Family; Visit Provider Nurse Practitioner Family
DX: Z78.0 Asymptomatic menopausal state (principal)
CPT/HCPCS: 77080

== ENCOUNTER 2024-03-19 08:15 | Outpatient (CLI) | payer BC, MEDICARE, SELFPAY ==
[2024-03-19 08:35] LABS: Basophils # 0.1 K/mm3 (0-0.2); Basophils % 1.5 % (0.1-2.0); Eosinophils # 0.2 K/mm3 (0.0-0.4); Eosinophils % 2.8 % (0.1-12.0); Hematocrit 40.9 % (37.0-47.0); Hemoglobin 13.2 g/dL (12.2-16.2); Lymphocytes # 2.1 K/mm3 (0.7-4.5); Lymphocytes % 33.2 % (10-50); Mean Corpuscular HGB Conc 32.2 g/dL (31.8-35.4); Mean Corpuscular Hemoglobin 27.3 pg (27.0-31.2); Mean Corpuscular Volume 84.9 fl (81-99); Mean Platelet Volume 8.4 fl (7.4-10.4); Monocytes # 0.5 K/mm3 (0.1-1.0); Neutrophils # 3.6 K/mm3 (1.8-7.8); Neutrophils % 55.5 % (37.0-80.0); Platelet Count 334 K/mm3 (142-424); Red Blood Count 4.82 M/mm3 (4.20-5.40); Red Cell Distribution Width 17.9 % (11.5-17.5); White Blood Count 6.4 K/mm3 (4.8-10.8)
[2024-03-19 10:12] LABS: Anion Gap 14.8 mEq/L (5-15); Blood Urea Nitrogen 16 mg/dl (7-17); Calcium 9.3 mg/dl (8.4-10.2); Carbon Dioxide 25 mmol/L (22.0-30.0); Chloride 102 mmol/L (98-107); Estimated Glomerular Filt Rate 49 ml/min (>60); GFR (African American) 60 ML/MIN (>60); Glucose 83 mg/dl (74-100); Potassium 4.8 mmoL/L (3.5-5.1); Sodium 137 mmol/L (136-145)
[2024-03-19 11:28] LABS: Ferritin 16.7 ng/ml (11.1-264)
== END 2024-03-19 23:59 | disposition home or self-care (01) ==
LOC: LAB 08:17
PROVIDERS: PCP Nurse Practitioner Family; Visit Provider Nurse Practitioner Family
DX: D50.9 Iron deficiency anemia, unspecified (principal); I10 Essential (primary) hypertension; N18.31 Chronic kidney disease, stage 3a
CPT/HCPCS: 36415; 80048; 82728; 85025

== ENCOUNTER 2024-03-23 11:04 | Emergency (ER) | payer BC, MEDICARE, SELFPAY ==
[2024-03-23 11:16] VITALS: BP 156/91; PULSE 66; RESP 18; TEMP 36.6; O2SAT 98; BMI 26.6
--- NOTE | 2024-03-23 11:20 | EXP.UTC ---
Discharge Plan Disposition Patient Disposition: Home, Self-Care Condition: Good Prescriptions Prescriptions: New methylprednisolone 4 mg Tablets,Dose Pack 4 mg PO DIRECTED 6 Days Qty: 21 0RF Rx Instructions: Take 1 pack as directed for 6 days guaifenesin [Mucinex] 600 mg tablet extended release 12hr 600 - 1,200 mg PO BIDP PRN (Reason: Congestion) Qty: 30 0RF amoxicillin 875 mg tablet 875 mg PO Q12H Qty: 20 0RF benzonatate 100 mg capsule 100 mg PO TIDP PRN (Reason: Cough) Qty: 30 0RF No Action lisinopril 5 mg tablet 5 mg PO DAILY 30 Days Qty: 30 levothyroxine 75 mcg tablet 75 mcg PO DAILY Qty: 90 4RF azelastine 137 mcg (0.1 %) aerosol,spray 1 spray intranasal BID Qty: 30 3RF Rx Instructions: administer into each nostril cefdinir 300 mg capsule 300 mg PO BID 7 Days Qty: 14 0RF ergocalciferol (vitamin D2) 50,000 UNIT capsule 50,000 unit PO WEEKLY B complex-vitamin C-folic acid 400 MCG tablet 400 mcg PO DAILY polyethylene glycol 3350 119 GM powder 17 gm PO DAILY fexofenadine-pseudoephedrine 1 EACH tablet extended release 12 hr 1 each PO DAILY cranberry 400 MG capsule 400 mg PO DAILY omeprazole 40 mg Capsule,Delayed Release(Dr/Ec) 40 mg PO DAILY Creon 36,000-114,000- 180,000 unit Capsule,Delayed Release(Dr/Ec) 1 cap PO [place]IDWMEAL [place]ellaneous [place] [facility] [place] miscellaneous QID Rx Instructions: Domperidone 10mg 1 tab with each meal and at bedtime azithromycin [Zithromax] 250 mg tablet 250 mg PO UD DOSE PK Qty: 6 0RF Rx Instructions: Take two (2) tablets today, then one (1) tablet days #2 thru #5 benzonatate 100 mg capsule 100 mg PO TIDP PRN (Reason: Cough) Qty: 30 0RF methylprednisolone 4 mg Tablets,Dose Pack 4 mg PO DIRECTED 6 Days Qty: 21 0RF Rx Instructions: Take 1 pack as directed for 6 days fluconazole 150 mg tablet 150 mg PO ONCE Qty: 1 3RF Referrals Follow up/Referrals: Aaliyah Nails APRN [Primary Care Provider] - See instructions Activity Restrictions/Add. Instructions Additional Instructions/Restrictions: Drink plenty of fluids. Take tylenol or ibuprofen for pain or fever. Take the medications as directed. Follow up with your regular doctor. GO TO THE ER FOR ANY WORSENING SYMPTOMS Don't start the oral steroids (medrol dose pack) until tomorrow since you had the shot her Clinical Impressions Clinical Impression: Sinusitis Instructions Patient Instructions: Sinusitis, DI for Sinusitis, Dexamethasone Injection Print Language Print Language: Maldivian Discharge ED Provider: Jamaal Dias [facility] [place] H[place] General Stated complaint: congestion and cough Mode of Arrival: Ambulatory Source of Information: Patient Limitations: No Limitations Time Seen by Provider: 03/23/24 11:20 Description of Symptoms (Recalled from Triage Doc. by RN): pt c/o sinus pressure and drainage. HEENT Symptoms (Recalled from RN notes): Yes Resp Symptoms (Recalled from RN notes): No Skin Symptoms (Recalled from RN notes): No MS Symptoms (Recalled from RN notes): No Functional Status (Recalled from RN notes): wnl Related Data Home Medications ?Medication ?Instructions ?Recorded ?Confirmed lisinopril 5 mg tablet 5 mg PO DAILY Hypertension 30 days 06/10/18 11/21/22 #30 tabs ergocalciferol (vitamin D2) 1,250 50,000 unit PO WEEKLY Supplement 10/12/20 11/21/22 mcg (50,000 unit) capsule vitamin B complex-vitamin C-folic 400 mcg PO DAILY Supplement 10/12/20 11/21/22 acid 400 mcg tablet fexofenadine 60 mg-pseudoephedrine 1 each PO DAILY ALLERGIES 02/07/22 11/21/22 ER 120 mg tablet,ext.release,12 hr polyethylene glycol 3350 17 17 gm PO DAILY CONSTIPATION 02/07/22 11/21/22 gram/dose oral powder cranberry 400 mg capsule 400 mg PO DAILY UTI prevention 02/10/22 11/21/22 [id number] 1 cap PO TIDWMEAL digestion 07/07/22 11/21/22 36,000-114,000-180,000 unit capsule,delay rel (Creon) miscellaneous medical supply 1 ea miscellaneous QID Nausea & 07/07/22 11/21/22 vomiting omeprazole 40 mg capsule,delayed 40 mg PO DAILY GERD 07/07/22 11/21/22 release Previous Rx's ?Medication ?Instructions ?Recorded levothyroxine 75 mcg tablet 75 mcg PO DAILY thyroid #90 tabs 06/06/21 azelastine 137 mcg (0.1 %) nasal 1 spray intranasal BID #30 mL 11/21/22 spray cefdinir 300 mg capsule 300 mg PO BID 7 days #14 caps 11/21/22 azithromycin 250 mg tablet 250 mg PO UD DOSE PK #6 tabs 11/04/23 (Zithromax) benzonatate 100 mg capsule 100 mg PO TIDP PRN Cough #30 caps 11/04/23 fluconazole 150 mg tablet 150 mg PO ONCE 1 dose #1 tab 11/04/23 methylprednisolone 4 mg tablets in 4 mg PO DIRECTED 6 days #21 tabs 11/04/23 a dose pack amoxicillin 875 mg tablet 875 mg PO Q12H #20 tabs 03/23/24 benzonatate 100 mg capsule 100 mg PO TIDP PRN Cough #30 caps 03/23/24 guaifenesin 600 mg tablet, 600 - 1,200 mg (1 - 2 x 600 mg) PO 03/23/24 extended release 12 hr (Mucinex) BIDP PRN Congestion #30 tabs methylprednisolone 4 mg tablets in 4 mg PO DIRECTED 6 days #21 tabs 03/23/24 a dose pack Allergies Allergy/AdvReac Type Severity Reaction Status Date / Time Sulfa (Sulfonamide Allergy Intermediate I-HIVES/ITC Verified 03/23/24 11:19 Antibiotics) YUE/JOCELYNE TSANG Worker's Comp Is this a Worker's Comp case?: No [facility] Disclaimer: The information contained in this section may have been updated after the patient was seen, as this information can be updated by other users. Medical History Anemia Closed left fibular fracture Closed left tibial fracture Foreign body of ear, right GERD (gastroesophageal reflux disease) History of ovarian cancer HTN (hypertension) Hx of Graves' disease Hx: UTI (urinary tract infection) Left wrist fracture Surgical History History of open reduction and internal fixation (ORIF) procedure History of removal of retained hardware History of thyroidectomy Hx of total hysterectomy Family History Other Cancer Diabetes Heart attack Hypertension Stroke Social History Smoking Status: Never smoker second hand exposure: No alcohol intake: never substance use type: denies use current occupational status: other Travel in the last 8 weeks: None household members: spouse housing: house marital status: current occupation: [employer] current occupational exposures/hazards: No caffeine: Yes ROS Obtained: Yes All systems reviewed & no additional complaints except as documented Constitutional Constitutional: Reports poor appetite Eyes Eyes: Reports system reviewed and no additional complaints, except as documented ENT Ears, Nose, Mouth, and Throat: Reports as per HPI Cardiovascular Cardiovascular: Reports system reviewed and no additional complaints, except as documented and Denies chest pain Respiratory Respiratory: Denies shortness of breath, Denies chest congestion, Reports cough, Denies stridor and Denies wheezing Gastrointestinal Gastrointestingal: Reports system reviewed and no additional complaints, except as documented; Denies abdominal pain, diarrhea or vomiting Musculoskeletal Musculoskeletal: Reports system reviewed and no additional complaints, except as documented and Denies arthralgias Integumentary/Breasts Skin/Breast: Reports system reviewed and no additional complaints, except as documented and Denies rash Neurologic Neurologic: Denies paresthesias Allergic/Immunologic Allergic/Immunologic: Denies wheezing Physical Exam General General appearance: alert and in no apparent distress Eye Eye exam: Present normal appearance, PERRL and EOMI ENT ENT exam: Present mucous membranes moist and normal external ear exam Expanded ENT Exam External ear exam: Present normal external inspection TM/Canal exam: Bilateral TM: erythema and bulging Nose exam: Absent sinus tenderness Nasal speculum exam: Bilateral: normal Mouth exam: Present normal external inspection; Absent drooling Teeth exam: Present normal inspection Throat exam: Present tonsillar erythema and tonsillomegaly Neck Neck exam: Present normal inspection, full ROM and trachea midline; Absent tenderness, lymphadenopathy or thyromegaly Chest Chest inspection: Present normal inspection and symmetric chest wall rise; Absent tenderness or rash Respiratory Respiratory exam: Present normal lung sounds bilaterally; Absent respiratory distress, wheezes, stridor or accessory muscle use Cardiovascular Cardiovascular exam: Present regular rate, normal rhythm and normal heart sounds Abdominal Exam Abdominal exam: Present soft; Absent distention, tenderness, guarding, rebound or rigidity Extremities Exam Extremities exam: Present normal inspection, full ROM and normal capillary refill; Absent tenderness or calf tenderness Back Exam Back exam: Present normal inspection and full ROM; Absent tenderness Neurological Exam Neurological exam: Present alert and oriented X3 Psychiatric Psychiatric exam: Present normal affect and normal mood Skin Skin exam: Present warm, dry, intact and normal color Lymphatic Lymphatic Findings: no adenopathy Medical Decision Making Medical Records Medical records reviewed: No I reviewed the patient's medical records. Romeo Inquiry Pt receiving controlled substance: No Vital Signs: 03/23/24 11:16 Temperature 97.8 F Temperature Source Oral Pulse Rate [Right] 66 Respiratory Rate 18 Blood Pressure [Left Arm] 156/91 H Blood Pressure Mean [Left Arm] 112 Blood Pressure Source [Left Arm] Automatic Cuff Blood Pressure Position [Left Arm] Sitting 02 Sat by Pulse Oximetry 98 Oxygen Delivery Method Room Air
[2024-03-23] MEDS: DEXAMETHASONE 4MG/ML 1ML VIAL 8 MG IM (11:54)
[2024-03-23 12:01] VITALS: BP 156/91; PULSE 66; RESP 18; TEMP 36.6
== END 2024-03-23 12:04 | disposition home or self-care (01) ==
PROVIDERS: Emergency Provider Nurse Practitioner Family; PCP Nurse Practitioner Family
DX: J01.90 Acute sinusitis, unspecified (principal); R05.9 Cough, unspecified
CPT/HCPCS: 96372; 99212; 99214; G0463; J1100

== ENCOUNTER 2024-04-08 16:03 | Emergency (ER) | payer MEDICARE, SELFPAY ==
[2024-04-08 16:10] VITALS: BP 152/62; PULSE 71; RESP 20; TEMP 36.5; O2SAT 98; BMI 27.1
--- NOTE | 2024-04-08 16:26 | ED_ITS ---
Discharge Plan Disposition Patient Disposition: Home, Self-Care Condition: Good Prescriptions Prescriptions: New cephalexin 500 mg capsule 500 mg PO BID 5 Days Qty: 10 0RF No Action lisinopril 5 mg tablet 5 mg PO DAILY 30 Days Qty: 30 levothyroxine 75 mcg tablet 75 mcg PO DAILY Qty: 90 4RF azelastine 137 mcg (0.1 %) aerosol,spray 1 spray intranasal BID Qty: 30 3RF Rx Instructions: administer into each nostril cefdinir 300 mg capsule 300 mg PO BID 7 Days Qty: 14 0RF ergocalciferol (vitamin D2) 50,000 UNIT capsule 50,000 unit PO WEEKLY B complex-vitamin C-folic acid 400 MCG tablet 400 mcg PO DAILY polyethylene glycol 3350 119 GM powder 17 gm PO DAILY fexofenadine-pseudoephedrine 1 EACH tablet extended release 12 hr 1 each PO DAILY cranberry 400 MG capsule 400 mg PO DAILY omeprazole 40 mg Capsule,Delayed Release(Dr/Ec) 40 mg PO DAILY Creon 36,000-114,000- 180,000 unit Capsule,Delayed Release(Dr/Ec) 1 cap PO TIDWMEAL miscellaneous medical supply [facility] [place] 1 ea miscellaneous QID Rx Instructions: Domperidone 10mg 1 tab with each meal and at bedtime azithromycin [Zithromax] 250 mg tablet 250 mg PO UD DOSE PK Qty: 6 0RF Rx Instructions: Take two (2) tablets today, then one (1) tablet days #2 thru #5 benzonatate 100 mg capsule 100 mg PO TIDP PRN (Reason: Cough) Qty: 30 0RF methylprednisolone 4 mg Tablets,Dose Pack 4 mg PO DIRECTED 6 Days Qty: 21 0RF Rx Instructions: Take 1 pack as directed for 6 days fluconazole 150 mg tablet 150 mg PO ONCE Qty: 1 3RF methylprednisolone 4 mg Tablets,Dose Pack 4 mg PO DIRECTED 6 Days Qty: 21 0RF Rx Instructions: Take 1 pack as directed for 6 days guaifenesin [Mucinex] 600 mg tablet extended release 12hr 600 - 1,200 mg PO BIDP PRN (Reason: Congestion) Qty: 30 0RF amoxicillin 875 mg tablet 875 mg PO Q12H Qty: 20 0RF benzonatate 100 mg capsule 100 mg PO TIDP PRN (Reason: Cough) Qty: 30 0RF Referrals Follow up/Referrals: Aaliyah Nials APRN [Primary Care Provider] - See instructions Activity Restrictions/Add. Instructions Additional Instructions/Restrictions: *Increase fluids. Water not Soda or Tea *Start antibiotic immediately and be sure to take as ordered for the FULL length of time although you should start to see improvement over the next 48 hours *Be SURE to follow up anytime for new or worsening symptoms with your family doctor. AND in 48 hours for urine culture results with your family doctor, if you do not have a doctor then you may call back to the [facility] for urine culture results and further treatment. We do recommend that you choose and establish care with a Primary Care Physician. ?AND follow up with them ?in 10-14 days to repeat UA to ensure infection is resolved and blood no longer present *Be sure to let your PCP know that we sent urine cultures from the [facility] so they can follow up to ensure that you area the on the correct antibiotic Call your doctor office and make appointment for 48 hours (2 days from today) ?to follow up and get the results of your urine culture and further treatment Clinical Impressions Clinical Impression: UTI symptoms Instructions Patient Instructions: DI for Urinary Tract Infection (UTI), Urinary Tract Infection, Cephalexin Print Language Print Language: Lao Discharge ED Provider: Lorraine Garrett [facility] [place] HPI General Stated complaint: frequent urination Mode of Arrival: Ambulatory Source of Information: Patient Limitations: No Limitations Time Seen by Provider: 04/08/24 16:26 Description of Symptoms (Recalled from Triage Doc. by RN): PATIENT C/O PRESSURE TO BLADDER AREA AND URINARY URGENCY HEENT Symptoms (Recalled from RN notes): No Resp Symptoms (Recalled from RN notes): No Skin Symptoms (Recalled from RN notes): No MS Symptoms (Recalled from RN notes): No Functional Status (Recalled from RN notes): WNL History of Present Illness Provider Complaint: Patient states that she feels like she may have a UTI States that she has started having frequent urination and feeling of urgency and frequency States that she isnt having any burning yet just discomfort States that she feels like she does with other UTI's so she came in to get something before it got to bad Related Data Home Medications ?Medication ?Instructions ?Recorded ?Confirmed lisinopril 5 mg tablet 5 mg PO DAILY Hypertension 30 days 06/10/18 11/21/22 #30 tabs ergocalciferol (vitamin D2) 1,250 50,000 unit PO WEEKLY Supplement 10/12/20 11/21/22 mcg (50,000 unit) capsule vitamin B complex-vitamin C-folic 400 mcg PO DAILY Supplement 10/12/20 11/21/22 acid 400 mcg tablet fexofenadine 60 mg-pseudoephedrine 1 each PO DAILY ALLERGIES 02/07/22 11/21/22 ER 120 mg tablet,ext.release,12 hr polyethylene glycol 3350 17 17 gm PO DAILY CONSTIPATION 02/07/22 11/21/22 gram/dose oral powder cranberry 400 mg capsule 400 mg PO DAILY UTI prevention 02/10/22 11/21/22 [id number] 1 cap PO TIDWMEAL digestion 07/07/22 11/21/22 36,000-114,000-180,000 unit capsule,delay rel (Creon) miscellaneous medical supply 1 ea miscellaneous QID Nausea & 07/07/22 11/21/22 vomiting omeprazole 40 mg capsule,delayed 40 mg PO DAILY GERD 07/07/22 11/21/22 release Previous Rx's ?Medication ?Instructions ?Recorded levothyroxine 75 mcg tablet 75 mcg PO DAILY thyroid #90 tabs 06/06/21 azelastine 137 mcg (0.1 %) nasal 1 spray intranasal BID #30 mL 11/21/22 spray cefdinir 300 mg capsule 300 mg PO BID 7 days #14 caps 11/21/22 azithromycin 250 mg tablet 250 mg PO UD DOSE PK #6 tabs 11/04/23 (Zithromax) benzonatate 100 mg capsule 100 mg PO TIDP PRN Cough #30 caps 11/04/23 fluconazole 150 mg tablet 150 mg PO ONCE 1 dose #1 tab 11/04/23 methylprednisolone 4 mg tablets in 4 mg PO DIRECTED 6 days #21 tabs 11/04/23 a dose pack amoxicillin 875 mg tablet 875 mg PO Q12H #20 tabs 03/23/24 benzonatate 100 mg capsule 100 mg PO TIDP PRN Cough #30 caps 03/23/24 guaifenesin 600 mg tablet, 600 - 1,200 mg (1 - 2 x 600 mg) PO 03/23/24 extended release 12 hr (Mucinex) BIDP PRN Congestion #30 tabs methylprednisolone 4 mg tablets in 4 mg PO DIRECTED 6 days #21 tabs 03/23/24 a dose pack cephalexin 500 mg capsule 500 mg PO BID 5 days #10 caps 04/08/24 Allergies Allergy/AdvReac Type Severity Reaction Status Date / Time Sulfa (Sulfonamide Allergy Intermediate I-HIVES/ITC Verified 03/23/24 11:19 Antibiotics) YUE/JOCELYNE TSANG Worker's Comp Is this a Worker's Comp case?: No [facility] Disclaimer: The information contained in this section may have been updated after the patient was seen, as this information can be updated by other users. Medical History Anemia Closed left fibular fracture Closed left tibial fracture Foreign body of ear, right GERD (gastroesophageal reflux disease) History of ovarian cancer HTN (hypertension) Hx of Graves' disease Hx: UTI (urinary tract infection) Left wrist fracture Surgical History History of open reduction and internal fixation (ORIF) procedure History of removal of retained hardware History of thyroidectomy Hx of total hysterectomy Family History Other Cancer Diabetes Heart attack Hypertension Stroke Social History Smoking Status: Never smoker second hand exposure: No alcohol intake: never substance use type: denies use current occupational status: other Travel in the last 8 weeks: None household members: spouse housing: house marital status: current occupation: [employer] current occupational exposures/hazards: No caffeine: Yes ROS Obtained: Yes All systems reviewed & no additional complaints except as documented and Yes Systems reviewed as appropriate & no additional complaints except as documented Constitutional Constitutional: Reports system reviewed and no additional complaints, except as documented and Reports as per HPI ENT Ears, Nose, Mouth, and Throat: Reports system reviewed and no additional complaints, except as documented and Reports as per HPI Cardiovascular Cardiovascular: Reports system reviewed and no additional complaints, except as documented and Reports as per HPI Respiratory Respiratory: Reports system reviewed and no additional complaints, except as documented and Reports as per HPI Gastrointestinal Gastrointestingal: Reports system reviewed and no additional complaints, except as documented and as per HPI Genitourinary Female Genitourinary: Reports system reviewed and no additional complaints, except as documented, Reports as per HPI, Reports urinary frequency and Reports urinary urgency Physical Exam General General appearance: alert and in no apparent distress ENT ENT exam: Present mucous membranes moist Respiratory Respiratory exam: Present normal lung sounds bilaterally; Absent respiratory distress or wheezes Cardiovascular Cardiovascular exam: Present regular rate, normal rhythm and normal heart sounds Abdominal Exam Abdominal exam: Present soft and normal bowel sounds; Absent distention or tenderness Neurological Exam Neurological exam: Present alert, oriented X3 and normal gait Medical Decision Making Romeo Inquiry Pt receiving controlled substance: No Romeo was queried for this patient: No Vital Signs: 04/08/24 16:10 Temperature 97.7 F Temperature Source Oral Pulse Rate [Left Brachial] 71 Respiratory Rate 20 Blood Pressure [Left Arm] 152/62 H Blood Pressure Mean [Left Arm] 92 Blood Pressure Source [Left Arm] Automatic Cuff Blood Pressure Position [Left Arm] Sitting 02 Sat by Pulse Oximetry 98 Oxygen Delivery Method Room Air Lab Data Lab results reviewed: Yes I reviewed the patient's lab results.
[2024-04-08 16:30] LABS: Color,Urine Yellow (Yellow)
[2024-04-08 16:31] LABS: Apearance,Urine Clear (Clear); Bilirubin,Urine Negative (Negative); Blood, Urine Negative (Negative); Glucose,Urine (UA) Negative (Negative); Ketones,Urine Negative (Negative); Protein,Urine Negative (Negative); UTC Leukocyte Esterase,Urine Trace (Negative); UTC Nitrate,Urine Negative (Negative); Urobilinogen,Urine 0.2 EU/dl (0.2)
[2024-04-08 16:36] VITALS: BP 152/62; PULSE 71; RESP 20; TEMP 36.5; O2SAT 98
== END 2024-04-08 16:39 | disposition home or self-care (01) ==
PROVIDERS: Emergency Provider Nurse Practitioner; PCP Nurse Practitioner Family
DX: N39.0 Urinary tract infection, site not specified (principal); B96.89 Other specified bacterial agents as the cause of diseases classified elsewhere; R35.0 Frequency of micturition; R39.15 Urgency of urination
CPT/HCPCS: 81003; 87086; 99212; 99214; G0463

== ENCOUNTER 2024-04-20 08:01 | Emergency (ER) | payer MEDICARE, SELFPAY ==
[2024-04-20 08:14] VITALS: BP 137/87; PULSE 73; RESP 18; TEMP 36.8; O2SAT 96; BMI 26.9
--- NOTE | 2024-04-20 08:16 | EXP.UTC ---
Discharge Plan Disposition Patient Disposition: Home, Self-Care Condition: Good Prescriptions Prescriptions: New doxycycline hyclate 100 mg capsule 100 mg PO Q12 5 Days Qty: 10 0RF methylprednisolone 4 mg Tablets,Dose Pack 4 mg PO DIRECTED 6 Days Qty: 21 0RF Rx Instructions: Take 1 pack as directed for 6 days No Action levothyroxine 75 mcg tablet 75 mcg PO DAILY Creon 36,000-114,000- 180,000 unit capsule,delayed release(DR/EC) 1 cap PO TID Patient Comments: TAKE ONE CAPSULE BY MOUTH with breakfast AND LUNCH AND TAKE TWO CAPSULES with dinner phenazopyridine [Pyridium] 200 mg tablet 200 mg PO Q8H 2 Days Qty: 6 0RF nitrofurantoin monohyd/m-cryst [Macrobid] 100 mg capsule 100 mg PO Q12H 5 Days Qty: 10 0RF Rx Instructions: must administer with a meal/food Referrals Follow up/Referrals: Aaliyah Nails APRN [Primary Care Provider] - See instructions Activity Restrictions/Add. Instructions Additional Instructions/Restrictions: Drink plenty of fluids. Take the medications as directed. Follow up with your regular doctor. GO TO THE ER FOR ANY WORSENING SYMPTOMS Don't start the oral steroids (medrol dose pack) until tomorrow since you had the shot here Clinical Impressions Clinical Impression: Allergic reaction, UTI (urinary tract infection) Instructions Patient Instructions: Methylprednisolone Injection, Doxycycline, Methylprednisolone Print Language Print Language: Yakut Discharge ED Provider: Jamaal Dias [facility] General Stated complaint: rash all over, allergic reaction to medication Time Seen by Provider: 04/20/24 08:16 History of Present Illness Provider Complaint: She states that she has been being treated for uti with cipro. She states that for the past 2 days she has had a worsening itchy rash on her body and face. Related Data Home Medications ?Medication ?Instructions ?Recorded ?Confirmed levothyroxine 75 mcg tablet 75 mcg PO DAILY 04/08/24 04/08/24 [id number] 1 cap PO TID 04/08/24 04/08/24 36,000-114,000-180,000 unit capsule,delay rel (Creon) Previous Rx's ?Medication ?Instructions ?Recorded nitrofurantoin 100 mg PO Q12H 5 days #10 caps 08/13/24 monohydrate/macrocrystals 100 mg capsule (Macrobid) phenazopyridine 200 mg tablet 200 mg PO Q8H pain 2 days #6 tabs 04/08/24 (Pyridium) doxycycline hyclate 100 mg capsule 100 mg PO Q12 5 days #10 caps 04/20/24 methylprednisolone 4 mg tablets in 4 mg PO DIRECTED 6 days #21 tabs 04/20/24 a dose pack Allergies Allergy/AdvReac Type Severity Reaction Status Date / Time Sulfa (Sulfonamide Allergy Intermediate I-HIVES/ITC Verified 03/23/24 11:19 Antibiotics) YUE/SWELLI NG cephalexin Allergy Verified 04/08/24 16:48 PFSH PFSH Disclaimer: The information contained in this section may have been updated after the patient was seen, as this information can be updated by other users. Medical History Anemia Closed left fibular fracture Closed left tibial fracture Foreign body of ear, right GERD (gastroesophageal reflux disease) History of ovarian cancer HTN (hypertension) Hx of Graves' disease Hx: UTI (urinary tract infection) Left wrist fracture Surgical History History of open reduction and internal fixation (ORIF) procedure History of removal of retained hardware History of thyroidectomy Hx of total hysterectomy Family History Other Cancer Diabetes Heart attack Hypertension Stroke Social History Smoking Status: Never smoker second hand exposure: No alcohol intake: never substance use type: denies use current occupational status: other Travel in the last 8 weeks: None household members: spou
[2024-04-20 08:46] VITALS: BP 137/87; PULSE 73; RESP 18; TEMP 36.8; O2SAT 96
== END 2024-04-20 08:47 | disposition home or self-care (01) ==
PROVIDERS: Emergency Provider Nurse Practitioner Family; PCP Nurse Practitioner Family
DX: T36.8X5A Adverse effect of other systemic antibiotics, initial encounter; N39.0 Urinary tract infection, site not specified; R21 Rash and other nonspecific skin eruption
CPT/HCPCS: 96372; 99212; 99214; G0463; J2919

== ENCOUNTER 2024-08-18 12:22 | Emergency (ER) | payer MEDICARE, SELFPAY ==
--- NOTE | 2024-08-18 14:22 | EXP.UTC ---
Discharge Plan Disposition Patient Disposition: Home, Self-Care Condition: Good Prescriptions Prescriptions: New azithromycin [Zithromax] 250 mg tablet 250 mg PO UD DOSE PK Qty: 6 0RF Rx Instructions: Take two (2) tablets today, then one (1) tablet days #2 thru #5 benzonatate 100 mg capsule 100 mg PO TIDP PRN (Reason: Cough) Qty: 30 0RF methylprednisolone 4 mg Tablets,Dose Pack 4 mg PO DIRECTED 6 Days Qty: 21 0RF Rx Instructions: Take 1 pack as directed for 6 days No Action omeprazole 40 mg capsule,delayed release(DR/EC) 40 mg PO DAILY Creon 36,000-114,000- 180,000 unit capsule,delayed release(DR/EC) 1 cap PO .WMEALS Qty: 120 4RF Rx Instructions: 1 capsule by mouth with breakfast and lunch, 2 capsule with dinner levothyroxine 75 mcg tablet 75 mcg PO DAILY Referrals Follow up/Referrals: Aaliyah Nails APRN [Primary Care Provider] - See instructions Activity Restrictions/Add. Instructions Additional Instructions/Restrictions: Drink plenty of fluids. Take tylenol or ibuprofen for pain or fever. Take the medications as directed. Follow up with your regular doctor. GO TO THE ER FOR ANY WORSENING SYMPTOMS Clinical Impressions Clinical Impression: Sinusitis Instructions Patient Instructions: Sinusitis, DI for Sinusitis Print Language Print Language: Bengali Discharge ED Provider: Jamaal Dias [facility] [place] General Stated complaint: drainage and cough Time Seen by Provider: 08/18/24 14:22 Related Data Home Medications ?Medication ?Instructions ?Recorded ?Confirmed levothyroxine 75 mcg tablet 75 mcg PO DAILY 04/08/24 06/10/24 omeprazole 40 mg capsule,delayed 40 mg PO DAILY 06/10/24 06/10/24 release Previous Rx's ?Medication ?Instructions ?Recorded [id number] 1 cap PO .WMEALS #120 caps 08/05/24 36,000-114,000-180,000 unit capsule,delay rel (Creon) azithromycin 250 mg tablet 250 mg PO UD DOSE PK #6 tabs 08/18/24 (Zithromax) benzonatate 100 mg capsule 100 mg PO TIDP PRN Cough #30 caps 08/18/24 methylprednisolone 4 mg tablets in 4 mg PO DIRECTED 6 days #21 tabs 08/18/24 a dose pack Allergies Allergy/AdvReac Type Severity Reaction Status Date / Time Sulfa (Sulfonamide Allergy Intermediate I-HIVES/ITC Verified 06/10/24 09:44 Antibiotics) YUE/SWELLI NG cephalexin Allergy Verified 06/10/24 09:44 ciprofloxacin Allergy Hives Verified 06/10/24 09:44 [facility] Dis[facility]: The information contained in this section may have been updated after the patient was seen, as this information can be updated by other users. Medical History (Updated 08/18/24 @ 14:40 by Jamaal Dias APRN) Foreign body of ear, right Hx: UTI (urinary tract infection) Left wrist fracture Closed left tibial fracture Closed left fibular fracture Hx of Graves' disease Anemia History of ovarian cancer GERD (gastroesophageal reflux disease) HTN (hypertension) Surgical History History of open reduction and internal fixation (ORIF) procedure History of removal of retained hardware Hx of total hysterectomy History of thyroidectomy Family History Other Cancer Diabetes Heart attack Hypertension Stroke Social History Smoking Status: Never smoker second hand exposure: No alcohol intake: never substance use type: denies use current occupational status: other Travel in the last 8 weeks: None household members: spouse housing: house marital status: current occupation: [employer] current occupational exposures/hazards: No caffeine: Yes Have you lived/traveled outside US in past 30 days?: No Contact w/someone who lives/traveled outside US past 30 days?: No Exposure to someone with infectious disease in past 14 days?: No Do you have a fever (greater than 100.4 F or 38 C)?: No Have you tested positive for COVID-19: No Exposed to someone with COVID-19 in past 14 days?: No Do you have a sore throat?: No Do you have a cough?: Yes Do you have any weakness?: No Do you have any diarrhea?: No Are you experiencing any unusual bleeding?: No Do you have any muscle aches/pain?: No Do you have any abdominal pain?: No Are you experiencing loss of taste or smell?: No ROS Obtained: Yes All systems reviewed & no additional complaints except as documented Constitutional Constitutional: Reports poor appetite Eyes Eyes: Reports system reviewed and no additional complaints, except as documented ENT Ears, Nose, Mouth, and Throat: Reports as per HPI Cardiovascular Cardiovascular: Reports system reviewed and no additional complaints, except as documented and Denies chest pain Respiratory Respiratory: Denies shortness of breath, Denies chest congestion, Reports cough, Denies stridor and Denies wheezing Gastrointestinal Gastrointestingal: Reports system reviewed and no additional complaints, except as documented; Denies abdominal pain, diarrhea or vomiting Musculoskeletal Musculoskeletal: Reports system reviewed and no additional complaints, except as documented and Denies arthralgias Integumentary/Breasts Skin/Breast: Reports system reviewed and no additional complaints, except as documented and Denies rash Neurologic Neurologic: Denies paresthesias Allergic/Immunologic Allergic/Immunologic: Denies wheezing Physical Exam General General appearance: alert and in no apparent distress Eye Eye exam: Present normal appearance, PERRL and EOMI ENT ENT exam: Present mucous membranes moist and normal external ear exam Expanded ENT Exam External ear exam: Present normal external inspection TM/Canal exam: Bilateral TM: erythema and bulging Nose exam: Absent sinus tenderness Nasal speculum exam: Bilateral: normal Mouth exam: Present normal external inspection; Absent drooling Teeth exam: Present normal inspection Throat exam: Present tonsillar erythema and tonsillomegaly Neck Neck exam: Present normal inspection, full ROM and trachea midline; Absent tenderness, lymphadenopathy or thyromegaly Chest Chest inspection: Present normal inspection and symmetric chest wall rise; Absent tenderness or rash Respiratory Respiratory exam: Present normal lung sounds bilaterally; Absent respiratory distress, wheezes, stridor or accessory muscle use Cardiovascular Cardiovascular exam: Present regular rate, normal rhythm and normal heart sounds Abdominal Exam Abdominal exam: Present soft; Absent distention, tenderness, guarding, rebound or rigidity Extremities Exam Extremities exam: Present normal inspection, full ROM and normal capillary refill; Absent tenderness or calf tenderness Back Exam Back exam: Present normal inspection and full ROM; Absent tenderness Neurological Exam Neurological exam: Present alert and oriented X3 Psychiatric Psychiatric exam: Present normal affect and normal mood Skin Skin exam: Present warm, dry, intact and normal color Lymphatic Lymphatic Findings: no adenopathy Medical Decision Making Medical Records Medical records reviewed: No I reviewed the patient's medical records. Screening: Per USPSTF and CDC recommendations, given the prevalence of disease in our region, it is our hospital?s policy to screen for HIV and viral Hepatitis for all patients aged 18 and over and those with ongoing risk factors. Romeo Inquiry Pt receiving controlled substance: No Lab Data Lab results reviewed: Yes I reviewed the patient's lab results.
[2024-08-18 14:27] VITALS: BP 150/90; PULSE 65; RESP 18; TEMP 36.8; O2SAT 96; BMI 26.6
[2024-08-18 14:44] VITALS: BP 150/90; PULSE 65; RESP 18; TEMP 36.8
== END 2024-08-18 14:46 | disposition home or self-care (01) ==
PROVIDERS: Emergency Provider Nurse Practitioner Family; PCP Nurse Practitioner Family
DX: J01.90 Acute sinusitis, unspecified (principal); R63.8 Other symptoms and signs concerning food and fluid intake; R05.9 Cough, unspecified
CPT/HCPCS: 99212; G0381

== ENCOUNTER 2024-10-10 10:40 | Outpatient (CLI) | payer MEDICARE, SELFPAY ==
--- NOTE | 2024-10-10 10:44 | MM_ITS ---
PROCEDURE INFORMATION: Exam: MG Bilateral Screening 3D Mammography Exam date and time: 10/10/2024 11:03 AM Age: 69 years old Clinical indication: Screening examination TECHNIQUE: Imaging protocol: Bilateral Screening tomosynthesis and 2D mammography including computer-aided detection (CAD) when performed. COMPARISON: 1. MG MM DIG SCREENING MAMM BI W/CAD 10/09/2023 11:21 AM 2. MG MM DIG SCREENING MAMM BI W/CAD 07/04/2022 11:16 AM FINDINGS: MAMMOGRAPHY: Breast composition: There are scattered areas of fibroglandular density. Mass: No suspicious masses. Architectural distortion: None. Calcifications: No suspicious calcifications. Asymmetric density: None. Skin thickening: None. Axillary adenopathy: None. IMPRESSION: No mammographic evidence of malignancy. Annual screening is recommended unless otherwise clinically indicated. ASSESSMENT: BI-RADS Category 1: Negative.
== END 2024-10-10 23:59 | disposition home or self-care (01) ==
LOC: RAD 10:41
PROVIDERS: PCP Nurse Practitioner Family; Visit Provider Nurse Practitioner Family
DX: Z12.31 Encounter for screening mammogram for malignant neoplasm of breast (principal)
CPT/HCPCS: 77063; 77067

== ENCOUNTER 2025-01-15 13:21 | Day surgery (SDC) | payer MEDICARE, SELFPAY ==
[2025-01-13 10:48] VITALS: BMI 25.7
[2025-01-15 13:48] VITALS: BP 128/56; PULSE 56; RESP 17; TEMP 36.4; O2SAT 97
[2025-01-15] MEDS: LACTATED RINGERS 1000ML 1,000 ML 50 ML IV (14:12)
--- NOTE | 2025-01-15 16:08 | P.HP_ITS ---
History of Present Illness *Admission Date: 01/15/25 *Reason for visit:: Iron deficiency with duodenal angiodysplasias-history of Quinones's esophagu *History of present illness: Mrs. 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 The examination is deemed medically necessary for diagnostic upper endoscopy. The patient has been seen, interviewed and examined prior to the procedure by both myself and the anesthesia provider. [facility] Disclaimer: The information contained in this section may have been updated after the patient was seen, as this information can be updated by other users. Medical History Foreign body of ear, right Hx: UTI (urinary tract infection) Left wrist fracture Closed left tibial fracture Closed left fibular fracture Hx of Graves' disease Anemia History of ovarian cancer GERD (gastroesophageal reflux disease) HTN (hypertension) Surgical History History of open reduction and internal fixation (ORIF) procedure History of removal of retained hardware Hx of total hysterectomy History of thyroidectomy Family History Other Cancer Diabetes Heart attack Hypertension Stroke Social History Smoking Status: Never smoker second hand exposure: No alcohol intake: never substance use type: denies use current occupational status: other Travel in the last 8 weeks?: None household members: spouse housing: house marital status: current occupation: [employer] current occupational exposures/hazards: No caffeine: Yes Have you lived/traveled outside US in past 30 days?: No Contact w/someone who lives/traveled outside US past 30 days?: No Exposure to someone with infectious disease in past 14 days?: No Do you have a fever (greater than 100.4 F or 38 C)?: No Have you tested positive for COVID-19?: No Exposed to someone with COVID-19 in past 14 days?: No Do you have a sore throat?: No Do you have a cough?: No Do you have any weakness?: No Are you experiencing any nausea/vomitting?: No Do you have any diarrhea?: No Are you experiencing any unusual bleeding?: No Do you have any muscle aches/pain?: No Do you have any abdominal pain?: No Are you experiencing loss of taste or smell?: No Other Medical History Have you received the Flu Vaccine for this season: Yes Have you received the Pneumonia Vaccine: Yes Review of Systems Review of Systems Review of systems (narrative): Negative *Cardiovascular Comments: Negative *Gastrointestinal Comments: Negative *Genitourinary Comments: Negative *Musculoskeletal Comments: Negative *Neurologic Comments: Negative Meds Home Medications and Allergies Home Medications ?Medication ?Instructions ?Recorded ?Confirmed ?Type levothyroxine 75 mcg tablet 75 mcg PO DAILY 04/08/24 01/15/25 History omeprazole 40 mg capsule,delayed 40 mg PO DAILY 06/10/24 01/15/25 History release [id number] 1 cap PO .WMEALS #120 caps 08/05/24 01/15/25 Rx 36,000-114,000-180,000 unit capsule,delay rel (Creon) hydrochlorothiazide 12.5 mg tablet 12.5 mg PO DAILY 12/09/24 01/15/25 History nebivolol 20 mg tablet 20 mg PO DAILY 12/09/24 01/15/25 History New Prescriptions to Start Prescriptions: Allergies Allergy/AdvReac Type Severity Reaction Status Date / Time Sulfa (Sulfonamide Allergy Intermediate I-HIVES/ITC Verified 01/15/25 13:42 Antibiotics) YUE/SWELLI NG cephalexin Allergy Nausea Verified 01/15/25 13:42 ciprofloxacin Allergy Hives Verified 01/15/25 13:42 Exam Data for Last 24 hours Vital signs and Labs for Last 24 Hours: Temp Pulse Resp BP Pulse Ox O2 Del Method 97.6 F 56 L 17 128/56 L 97 Room Air 01/15/25 13:48 01/15/25 13:48 01/15/25 13:48 01/15/25 13:48 01/15/25 13:48 01/15/25 13:48 I & O for Last 24 hours: Intake & Output 01/12/25 01/13/25 01/14/25 01/15/25 23:59 23:59 23:59 23:59 Weight 150 lb *Routine HEENT Exam Head: Present normocephalic Eye: Present EOMI and PERRL ENT: Present mucous membranes moist *Routine Neck Exam Neck: Present supple *Routine Respiratory Exam Respiratory: Present CTA bilaterally *Routine Cardiovascular Exam Cardiovascular: Present RRR *Routine Abdominal Exam Abdominal: Present soft and normoactive bowel sounds; Absent tenderness *Routine Rectal Exam Rectal:: deferred *Routine Genitalia Exam Genitalia:: deferred *Routine Extremities Exam Extremities: Absent cyanosis, clubbing or edema *Routine Skin Exam Skin: Present warm; Absent rash *Routine Neurological Exam Neurological: Present alert and oriented X3 Assessment and Plan *Assessment and plan (1) Iron deficiency anemia: Status: Acute Category: Medical Code(s): D50.9 - Iron deficiency anemia, unspecified (2) AVM (arteriovenous malformation) of duodenum, acquired: Status: Acute Category: Medical Code(s): K31.819 - Angiodysplasia of stomach and duodenum without bleeding (3) History of Quinones's esophagus: Status: Acute Category: Medical Code(s): Z87.19 - Personal history of other diseases of the digestive system (4) Functional dyspepsia: Status: Acute Category: Medical Code(s): K30 - Functional dyspepsia (5) GERD (gastroesophageal reflux disease): Status: Acute Category: Medical Code(s): K21.9 - Gastro-esophageal reflux disease without esophagitis Plan A/P: 1. History of Quinones's esophagus with history of iron deficiency, duodenal AVMs and GERD with functional dyspepsia is the preprocedural diagnosis. The patient will be anesthetized/sedated using MAC sedation. The patient has been seen and examined. Cardiac and lung assessment prior to the examination is stable. Proceed with planned EGD.
--- NOTE | 2025-01-15 16:30 | HMH.PROCNOTE ---
[facility] Procedure Note Date: 01/15/25 Time: 16:48 Procedure Note:: Upper Endoscopy Procedure Report: Esophagogastroduodenoscopy with cold biopsies Endoscopost: Javid Grissom II, MD Referring Physician: SCAR Turner Date of Procedure: January 15, 2025 Equipment: Olympus GIF 190 standard upper endoscope Sedation: MAC sedation Indications: Mrs. Martinez is a 69-year-old female with a history of heartburn, reflux, dyspepsia, belching and globus sensation. Her barium swallow did show severe barium reflux with a moderate-sized hiatal hernia. She had an EGD with tx in July 2019 and had long segment Quinones's esophagus (Lynn classification C9M9). She had grade B reflux esophagitis and a 4 cm hiatal hernia. The patient has been doing well with omeprazole 40 mg daily. She has developed some constipation. She has had iron deficiency. In 2022 she had EGD and PillCam. There were some duodenal angiodysplasias identified on PillCam. These were in the proximal small intestine. She has had resolution of her iron deficiency and labs within the last year have shown some recurrent iron deficiency and anemia. She is back on iron which is caused some constipation. Procedure: Prior to the procedure, a history and physical exam was performed, and patient's medications and allergies were reviewed. The risks, benefits and alternatives of the sedation and procedure were discussed with the patient. All questions were answered and informed consent was obtained. The patient was brought to the procedure room. Patient identification and proposed procedure were verified by the physician and the nurse. The patient was placed in a left lateral decubitus position and the scope was passed under direct vision. Throughout the procedure, the patient's blood pressure, pulse, and oxygen saturations were monitored continuously. The upper GI endoscopy was accomplished without difficulty. The patient tolerated the procedure well. Findings: The scope was passed directly into the upper esophagus and advanced to the proximal jejunum. Upon withdrawal, there was no angiodysplasias identified within the duodenum. The proximal jejunum, post bulbar duodenum and duodenal bulb were normal with normal mucosa and conniventes. The scope was withdrawn through a normal duodenal bulb and pylorus into the stomach. There was mild reactive gastropathy of the antrum and mild chronic gastritis of the body and fundus. Cold biopsies were taken along the lesser curvature. Upon retroflexion, the fundus was normal. There was a moderate-sized hiatal hernia (6 cm). The diaphragmatic hiatus was at 40 cm from the incisors. The top of the gastric folds was at 34 cm from the incisors (6 cm hiatal hernia). There is no paraesophageal component and there were no Georgi's erosions. The scope was then withdrawn into the esophagus. The squamocolumnar junction/Z-line was at 25 cm leaving a 9 cm segment of Quinones's esophagus (Lynn classification C9M9). Narrowband imaging was utilized and there was no mucosal evidence of dysplasia. Biopsies were taken at 32-33 cm from incisors, 29-30 cm from incisors and 26?27 cm from incisors to rule out Quinones's with dysplasia. There was no evidence of reflux esophagitis. The remainder of the esophageal mucosa was normal. Impression: 1. Long segment Quinones's esophagus 9 cm (Lynn classification C9M9)?no NBI evidence of dysplasia 2. Moderate size 6 cm hiatal hernia 3. Mild antral gastropathy and mild chronic gastritis Plan: I will follow-up the biopsies and recommend repeat surveillance EGD again in 3 years. There was no signs of any occult GI blood loss. I do feel that her iron deficiency may be multifactorial. I will inquire about NSAID use. Although it still remains a little controversial, studies have definitely shown that chronic PPI (proton pump inhibitor) use increases the risk for iron deficiency. There are 2 forms of dietary iron (heme iron and nonheme iron). Dietary nonheme iron is much less well absorbed than heme iron and its absorption is markedly improved by the presence of gastric acid. I will repeat iron studies today and CBC.
--- NOTE | 2025-01-15 16:37 | EXP.ANES.CKL ---
[facility] Disclaimer: The information contained in this section may have been updated after the patient was seen, as this information can be updated by other users. Medical History Foreign body of ear, right Hx: UTI (urinary tract infection) Left wrist fracture Closed left tibial fracture Closed left fibular fracture Hx of Graves' disease Anemia History of ovarian cancer GERD (gastroesophageal reflux disease) HTN (hypertension) Surgical History History of open reduction and internal fixation (ORIF) procedure History of removal of retained hardware Hx of total hysterectomy History of thyroidectomy Family History Other Cancer Diabetes Heart attack Hypertension Stroke Social History Smoking Status: Never smoker second hand exposure: No alcohol intake: never substance use type: denies use current occupational status: other Travel in the last 8 weeks?: None household members: spouse housing: house marital status: current occupation: [employer] current occupational exposures/hazards: No caffeine: Yes Have you lived/traveled outside US in past 30 days?: No Contact w/someone who lives/traveled outside US past 30 days?: No Exposure to someone with infectious disease in past 14 days?: No Do you have a fever (greater than 100.4 F or 38 C)?: No Have you tested positive for COVID-19?: No Exposed to someone with COVID-19 in past 14 days?: No Do you have a sore throat?: No Do you have a cough?: No Do you have any weakness?: No Are you experiencing any nausea/vomitting?: No Do you have any diarrhea?: No Are you experiencing any unusual bleeding?: No Do you have any muscle aches/pain?: No Do you have any abdominal pain?: No Are you experiencing loss of taste or smell?: No [facility] Anesthesia Checklist Patient Identification Patient Identification: Arm Band and Verbal (Name & ) Structural Data Admitted From: Home Planned Operative Procedure/s: EGD Consent for Planned Operative Procedure(s) Verified: Yes Verified Documents: Surgical Consent and History and Physical NPO Status Verified Time NPO: 00:00 Additional verifications Anesthesia Reactions: Yes (N/V) Hx Blood Transfusions: No Blood Transfusion Reaction: No Airway Assessment Mallampati Score:: Class II Dentition: Good Dentition Neurological Assessment Level of Consciousness: Awake, Alert and Appropriate Hx Seizures: No Anesthesia Plan Anesthesia Risk discussed: Yes Anesthesia Plan: Verified ASA Class: II Anesthesia Type: MAC
[2025-01-15 16:56] VITALS: BP 122/55; PULSE 63; RESP 16; TEMP 36.6; O2SAT 95
[2025-01-15 17:06] VITALS: BP 126/71; PULSE 56; RESP 16; O2SAT 98
[2025-01-15 17:08] VITALS: BP 122/65; PULSE 65; RESP 16; O2SAT 98
[2025-01-15 17:35] LABS: Basophils # 0.1 K/mm3 (0-0.2); Eosinophils # 0.1 Kmm3 (0.0-0.4); Eosinophils % 1.1 % (0.1-12.0); Hematocrit 40.1 % (37.0-47.0); Hemoglobin 13.1 g/dL (12.2-16.2); Immature Granulocytes # 0.02 10^3uL; Immature Granulocytes % 0.2 %; Lymphocytes # 2.6 K/mm3 (0.7-4.5); Lymphocytes % 29.6 % (10-50); Mean Corpuscular HGB Conc 32.7 g/dL (31.8-35.4); Mean Corpuscular Hemoglobin 28.1 pg (27.0-31.2); Mean Corpuscular Volume 86.1 fl (81-99); Mean Platelet Volume 10.7 fl (7.4-10.4); Monocytes # 0.7 K/mm3 (0.1-1.0); Monocytes % 7.9 % (1.7-9.3); Neutrophils # 5.3 K/mm3 (1.8-7.8); Neutrophils % 60.2 % (37.0-80.0); Nucleated Red Blood Cells # 0 10^3/uL; Nucleated Red Blood Cells % 0 %; Platelet Count 338 K/mm3 (142-424); Red Blood Count 4.66 M/mm3 (4.20-5.40); Red Cell Distribution Width 13.7 % (11.5-17.5); Red Cell Distribution Width-SD 42.6 fL; White Blood Count 8.8 K/mm3 (4.8-10.8)
[2025-01-15 18:13] LABS: Iron 72 ug/dL (37-170)
[2025-01-15 18:23] LABS: Total Iron Binding Capacity 308 ug/dL (265-497)
[2025-01-15 18:51] LABS: Ferritin 40.9 ng/ml (11.1-264)
== END 2025-01-15 17:09 | disposition home or self-care (01) ==
PROVIDERS: PCP Nurse Practitioner Family; Visit Provider Internal Medicine Gastroenterology
PROC: (CPT 44360; principal; 2025-01-15 15:00)
DX: D50.9 Iron deficiency anemia, unspecified (principal); K31.819 Angiodysplasia of stomach and duodenum without bleeding; Z87.19 Personal history of other diseases of the digestive system; K30 Functional dyspepsia; K21.9 Gastro-esophageal reflux disease without esophagitis; K31.9 Disease of stomach and duodenum, unspecified; K29.70 Gastritis, unspecified, without bleeding; K44.9 Diaphragmatic hernia without obstruction or gangrene; K22.70 Barrett's esophagus without dysplasia
CPT/HCPCS: 43239; 36415; 82728; 83540; 83550; 85025; J7120

== ENCOUNTER 2025-06-27 13:27 | Emergency (ER) | payer MEDICARE, SELFPAY ==
[2025-06-27 13:32] VITALS: BP 185/73; PULSE 55; RESP 20; TEMP 36.8; O2SAT 96; BMI 25.7
--- NOTE | 2025-06-27 13:39 | ED_ITS ---
<Statement entered by Valerie Martinez MD - 06/27/25 15:21> I was consulted by the ROBERTO, and we discussed the complexity of the problems being addressed. I approved the treatment and management plan for this patient's care in the emergency department, thus performing a substantive portion of the medical decision making. Valerie Martinez MD, FRANKIE, FACEP Discharge Plan Disposition Patient Disposition: Home, Self-Care Condition: Good Prescriptions Prescriptions: New cefdinir 300 mg capsule 300 mg PO BID 7 Days Qty: 14 0RF No Action omeprazole 40 mg capsule,delayed release(DR/EC) 40 mg PO DAILY hydrochlorothiazide 12.5 mg tablet 12.5 mg PO DAILY nebivolol 20 mg tablet 20 mg PO DAILY Creon 36,000-114,000- 180,000 unit capsule,delayed release(DR/EC) 1 cap PO .WMEALS Qty: 120 4RF Rx Instructions: 1 capsule by mouth with breakfast and lunch, 2 capsule with dinner levothyroxine 75 mcg tablet 75 mcg PO DAILY Referrals Follow up/Referrals: Aaliyah Nails APRN [Primary Care Provider, Medical] - See instructions Activity Restrictions/Add. Instructions Additional Instructions/Restrictions: Please return to the emergency department with any worsening signs or symptoms. Please take your medication as prescribed with food. Please follow-up with your family physician in the upcoming days/weeks. Clinical Impressions Clinical Impression: Acute UTI Instructions Patient Instructions: DI for Urinary Tract Infection (UTI) Print Language Print Language: Armenian Discharge ED Provider: Valerie Martinez General Adult HPI General Chief complaint: PAIN Stated complaint: Sent per [facility] for High BP Time Seen by Provider: 06/27/25 13:38 Mode of Arrival: Ambulatory Source of Information: Patient and Spouse Description of Symptoms (Recalled from ER Triage Doc. by RN): pt went to [facility] to get checked for a uti and her bp was to high for them to deal with per the patient. pt has hx of high bp. only s/s urinary burning and frequency as well as a headache. History of Present Illness HPI narrative: 69-year-old female presents the emergency department with 3 to 4 days of increased urinary frequency, and dysuria that started this morning, patient was sent from urgent care treatment facility, was there today for urinary type symptomatology believes she has a UTI , she has had similar symptoms to this with previous UTIs. However, in triage her blood pressure , was high , thus was prompted emergency department visit. Patient states that her blood pressure was 180 something , and the urgent care's office thus prompted emergency department visit. Initial triage vitals here notable for a systolic blood pressure of 151, patient denies any fever chills chest pain shortness of breath lightheadedness dizziness, no headache, no abdominal pain no nausea no vomiting no constipation no diarrhea no hematuria, no vaginal type symptomatology, patient denies any alcohol tobacco or drug use, other past medical history is consistent with iron deficiency anemia, GERD/Quinones esophagus, data deficient history of AVM of the duodenum, hypertension, hypothyroidism. Initial triage vitals are grossly unremarkable. Please note that above description of symptoms, in this electronic medical record under categorization of recalled from ER triage doctor by RN are reflective of an initial nursing assessment, however, is not reflective of my full history and physical exam that was personally taken and clarified. Consequentially, this preceding description of symptoms, which may include the patient's categorized chief complaint in the EMR, do not reflect my personal clinical impression, and the ultimate description of history of present illness and patient stated complaints should be deferred to this section of the note. Unless stated otherwise or congruent with this section of the note, additional signs, symptoms, or incongruence should be interpreted as inaccurate with my clinical impression. Onset (ago): day(s) Related Data Home Medications ?Medication ?Instructions ?Recorded ?Confirmed levothyroxine 75 mcg tablet 75 mcg PO DAILY 04/08/24 0 01/15/25 omeprazole 40 mg capsule,delayed 40 mg PO DAILY 01/15/25 release hydrochlorothiazide 12.5 mg tablet 12.5 mg PO DAILY 01/15/25 nebivolol 20 mg tablet 20 mg PO DAILY 12/09/2412/26 Previous Rx's ?Medication ?Instructions ?Recorded gszpxw-zjuafste-rzrlenu 1 cap PO .WMEALS #120 caps 0 01/20/25 (pork)36,000-114,000-180k unit capsule,del rel (Creon) cefdinir 300 mg capsule 300 mg PO BID 7 days #14 cap s 06/27/25 Allergies Allergy/AdvReac Type Severity Reaction Status Date / Time Sulfa (Sulfonamide Allergy Intermediate I-HIVES/ITC Verified 01/15/25 13:42 Antibiotics) YUE/JOCELYNE NG cephalexin Allergy Nausea Verified 01/15/25 13:42 ciprofloxacin Allergy Hives Verified 01/15/25 13:42 PFSH [facility] Disclaimer: The information contained in this section may have been updated after the patient was seen, as this information can be updated by other users. Medical History Foreign body of ear, right Hx: UTI (urinary tract infection) Left wrist fracture Closed left tibial fracture Closed left fibular fracture Hx of Graves' disease Anemia History of ovarian cancer GERD (gastroesophageal reflux disease) HTN (hypertension) Surgical History History of open reduction and internal fixation (ORIF) procedure History of removal of retained hardware Hx of total hysterectomy History of thyroidectomy Family History Other Cancer Diabetes Heart attack Hypertension Stroke Social History Smoking Status: Never smoker second hand exposure: No alcohol intake: never substance use type: denies use current occupational status: other Travel in the last 8 weeks?: None household members: spouse housing: house marital status: current occupation: [employer] current occupational exposures/hazards: No caffeine: Yes Have you lived/traveled outside [place] in past 30 days?: No Contact w/someone who lives/traveled outside US past 30 days?: No Exposure to someone with infectious disease in past 14 days?: No Do you have a fever (greater than 100.4 F or 38 C)?: No Have you tested positive for COVID-19?: No Exposed to someone with COVID-19 in past 14 days?: No Do you have a sore throat?: No Do you have a cough?: No Do you have any weakness?: No Do you have any diarrhea?: No Are you experiencing any unusual bleeding?: No Do you have any muscle aches/pain?: No Do you have any abdominal pain?: No Are you experiencing loss of taste or smell?: No Other Medical History Have you received the Flu Vaccine for this season: Yes Have you received the Pneumonia Vaccine: Yes ROS Obtained: Yes All systems reviewed & no additional complaints except as documented Physical Exam General General appearance: alert and in no apparent distress Head Head exam: atraumatic and normocephalic Eye Eye exam: Present PERRL and EOMI ENT ENT exam: Present mucous membranes moist Neck Neck exam: Present normal inspection Chest Chest inspection: Present normal inspection and symmetric chest wall rise Respiratory Respiratory exam: Present normal lung sounds bilaterally; Absent respiratory distress Cardiovascular Cardiovascular exam: Present regular rate and normal rhythm Abdominal Exam Abdominal exam: Present soft; Absent tenderness Extremities Exam Extremities exam: Present normal inspection Neurological Exam Neurological exam: Present alert and oriented X3 Psychiatric Psychiatric exam: Present normal affect Skin Skin exam: Present warm and dry Medical Decision Making Medical Records Medical records reviewed: Yes I reviewed the patient's medical records. Screening: Per USPSTF and CDC recommendations, given the prevalence of disease in our region, it is our hospital?s policy to screen for HIV and viral Hepatitis for all patients aged 18 and over and those with ongoing risk factors. Romeo Inquiry Pt receiving controlled substance: No Romeo was queried for this patient: No Vital Signs: 06/27/25 13:32 06/27/25 13:49 06/27/25 14:00 Temperature 98.2 F Temperature Source Oral Pulse Rate 54 L 55 L Pulse Rate [Left] 55 L Respiratory Rate 20 Blood Pressure 171/78 H 151/115 H Blood Pressure [Right Arm] 185/73 H Blood Pressure Mean [Right Arm] 110 02 Sat by Pulse Oximetry 96 96 97 Oxygen Delivery Method Room Air Room Air Room Air Lab Data Lab Results 06/27/25 14:10: Urine Color Yellow, Urine Appearance Clear, Urine pH 7.0, Ur Specific [place] 1.010, Urine Protein Negative, Urine Glucose (UA) Negative, Urine Ketones Negative, Urine Blood Trace-l, Urine Nitrate Negative, Urine Bilirubin Negative, Urine Urobilinogen 0.2, Ur Leukocyte Esterase 1+ A Orders (Tests/Meds): ORDERS Category Date Time Status Urinalysis and Microscopic Stat Lab 06/27/25 14:10 Results Urine Culture Stat Micro 06/27/25 14:10 Received Medical Decision Narrative: 69-year-old female presents to the emergency department for urinary frequency and dysuria, differential diagnose include but not limited to, acute UTI, acute pyelonephritis, among others. I discussed this patient's case with attending physician Dr. Martinez Will obtain UA, patient is essentially asymptomatic and not in any concern for hypertensive emergency/urgency here in the emergency department today, patient presents with urinary symptomatology, no flank pain bilaterally no abdominal pain, abdominal exam is benign, no tenderness palpation, no other red flag signs or symptoms to include nausea vomiting hematuria, patient is otherwise hemodynamically stable. UA is noted for trace hematuria, nitrite negative, 1+ leukocyte esterase. Will treat patient for acute UTI as patient has dysuria and increased urine frequency, will culture the patient's urine, will not wait for microscopic analysis as will not manager of change. Will prescribe the patient 300 mg p.o. cefdinir twice daily for 7 days, patient was given strict ED return precautions. Patient voiced understanding and agreement with current treatment plan/di kacierge plan. Critical Care Critical Care Time Critical Care Time: No
--- OUTSIDE RECORDS SUMMARY | 2025-06-27 13:45 | XMS_ITS | Clinical Summary ---
Author Organization [facility] Address [address], [address] [place] [address] Care Team Providers Care Manager Operations Name Role Phone Trent Garcia MD Primary Care Provider [phone] Family History Medical History Relation Name Comments Breast Cancer Maternal Aunt under 50 Ovarian Cancer Maternal Grandmother Relation Name Status Comments Maternal Aunt Maternal Grandmother Social History Tobacco Use Types Packs/Day Years Used Date Smoking Tobacco: Never Smokeless Tobacco: Never Comments No Sex and Gender Information Value Date Recorded Sex Assigned at Not on file Legal Sex Female 3:08 AM EST Gender Identity Not on file Sexual Orientation Not on file Last Filed Vital Signs Vital Sign Reading Time Taken Comments Blood Pressure - - Pulse - - Temperature - - Respiratory Rate - - Oxygen Saturation - - Inhaled Oxygen Concentration - - Weight 65.8 kg (145 lb) 05/18/2021 10:46 AM EDT Height 162.6 cm (5' 4 ) 05/18/2021 10:46 AM EDT Body Mass Index 24.89 05/18/2021 10:46 AM EDT Plan of Treatment Not on file Insurance [place] BCBS Care Teams Manager Operations Relationship Specialty Start Date End Date Trent Garcia MD [address] [place] [address] PCP - General Internal Medicine 05/18/21
[2025-06-27 13:49] VITALS: BP 171/78; PULSE 54; O2SAT 96
[2025-06-27 14:00] VITALS: BP 151/115; PULSE 55; O2SAT 97
[2025-06-27 14:21] LABS: Microscopic, Urine URINE MICROSCOPIC (MICROSCOPIC)
[2025-06-27 14:38] LABS: Bilirubin,Urine Negative (Negative); Color,Urine YELLOW (Yellow); Glucose,Urine (UA) Negative (Negative); Ketones,Urine Negative (Negative); Leukocyte Esterase,Urine 1+ (Negative); PH,Urine 7.0 (5.0-8.5); Protein,Urine Negative (Negative); Specific Gravity, Urine 1.010 (1.005-1.030); Urobilinogen,Urine 0.2 EU/dl (0.2)
[2025-06-27 14:52] VITALS: BP 190/81; PULSE 54; RESP 18; TEMP 36.7; O2SAT 96
[2025-06-27 15:03] LABS: Amorphous Sediment,Urine Trace /lpf; Squamous Epithelial Cell,Urine Occasional #/hpf (0-5)
== END 2025-06-27 14:58 | disposition home or self-care (01) ==
PROVIDERS: Physician Assistant; Emergency Provider Student in an Organized Health Care Education/Training Program; PCP Nurse Practitioner Family
DX: N39.0 Urinary tract infection, site not specified (principal); R30.0 Dysuria; R35.0 Frequency of micturition; I10 Essential (primary) hypertension
CPT/HCPCS: 81001; 87086; 99283